=== PATIENT | female | born 1980 | race Caucasian/White ===

== ENCOUNTER → 2017-04-14 12:01 | Outpatient (CLI) | payer MEDICAID, SELFPAY ==
--- NOTE | 2017-04-14 12:05 | RAD_ITS ---
STUDY: X-RAY - LEFT FOOT CLINICAL: Female, 37 years old. Fifth metatarsal pain for 6 days. TECHNIQUE: 3 view(s) of the foot. COMPARISON: None. FINDINGS: Normal talus, calcaneus, and tarsal bones. Normal visualized subtalar, talonavicular, calcaneocuboid, tarsal and tarsometatarsal articulations. There is an os trigonum, a normal variant. Normal metatarsi. There is no abnormality of the metatarsophalangeal or interphalangeal joints. There is ossification of the distal Achilles tendon. RAD/Foot min 3 Views IMPRESSION: No significant abnormality identified. Electronically Signed: Fili Galarza MD at 17:31 EST , Service support ,
== END ==
PROVIDERS: Family Provider Family Medicine; PCP Family Medicine; Visit Provider Family Medicine
DX: M79.672 Pain in left foot (principal)
CPT/HCPCS: 73630

== ENCOUNTER → 2017-05-08 10:56 | Outpatient (CLI) | payer MEDICAID, SELFPAY ==
--- NOTE | 2017-05-08 10:58 | VDLE_ITS ---
Reason For Study: LEG SWELLING RIGHT LEFT GSV is normal. CFV is compressible, spontaneous, phasic, CFV is compressible, spontaneous, phasic, competent, and demonstrates normal competent and demonstrates normal augmentation. augmentation. FV is compressible, spontaneous, phasic, competent and demonstrates normal augmentation. POP V is compressible, spontaneous, phasic, competent and demonstrates normal augmentation. T/P Trunk is compressible. PTV is compressible. RT PerV is compressible. Procedure Exam performed in department. A preliminary report was called and/or faxed to Dr. Myrna Gibson. Interpretation Summary Deep veins of the right lower extremity are patent and compressible segmentally. There is no evidence of right lower extremity deep vein thrombosis. Valvular competence appears intact within the proximal deep venous system on the right . The right greater saphenous vein appears patent and compressible segmentally. Ordering Physician: Albert Gibson Referring Physician: Albert Gibson Performed By: Tiffany Haywood RVT
== END ==
PROVIDERS: Family Provider Family Medicine; PCP Family Medicine; Visit Provider Family Medicine
DX: M25.473 Effusion, unspecified ankle (principal)
CPT/HCPCS: 93971

== ENCOUNTER → 2017-06-11 14:34 | Outpatient (CLI) | payer MEDICAID, SELFPAY ==
[2017-06-11 16:10] LABS: Microalbumin,Random Urine 6.5 mg/L (NO RANGE EST.); Microalbumin:Creatinine Ratio 6.1 mg/g CRE (<30 mg/g CRE)
[2017-06-11 16:15] LABS: Anion Gap 8 (5-15); BUN 11 mg/dL (7-18); BUN/Creat Ratio 13.7 RATIO (10-20); Calcium,Total 8.3 mg/dL (8.5-10.1); Chloride 109 mmol/L (98-107); EST Glomerular Filtration Rate 85 mL/min (>60); Est Glom Filt Rate - Afr Amer 102 mL/min (>60); Glucose 115 mg/dL (74-106); Potassium 3.7 mmol/L (3.5-5.1); Sodium Level 142 mmol/L (136-145)
[2017-06-12 11:16] LABS: Vitamin D,25 Hydroxy 11.3 ng/mL (29.95-100.01)
== END ==
PROVIDERS: Family Provider Family Medicine; PCP Family Medicine; Visit Provider Family Medicine
DX: I10 Essential (primary) hypertension (principal); S76.019D Strain of muscle, fascia and tendon of unspecified hip, subsequent encounter; M72.2 Plantar fascial fibromatosis
CPT/HCPCS: 36415; 80048; 82043; 82306; 82570; 97110

== ENCOUNTER 2017-06-11 16:00 | Outpatient (RCR) | payer MEDICAID, SELFPAY ==
--- NOTE | 2017-05-20 14:02 | HP.PTEVAL_ITS ---
Patient's Visit Information CARLOS STRANGE is a 37 year old F referred to Physical Therapy by Albert Gibson with a diagnosis of Hip/plantar fascitits. Date of Evaluation: 05/20/17 Physical Therapist: Nita Sellers - Visit Plan Frequency: 2x /Week Duration: 4 Weeks Plan: Focus on core s/s and stretching for Plantar fascitis- modalities as needed - Subjective Subjective: Patient reports plantar fascitis- years- was having tenderness on the bottom of the foot- had new shoes and then switched back- first step in the AM is the worse. Saw Dr. Gibson put her in the boot and its been a month. The pain is less but its tender. Wears the boot all day but does not wear it at night. No pain with the boot- wants her in the boot another month. Wears a shoe under the boot. works at [employer] and stands all day. worst: 4/10 Agg: standing on it all day. Eases: boot, arch supportive shoe, rolling on a can Best: 0/10. No Orthotics- tries shoes and is good with them- Nike running shoes and Pumpa sneakers. Has been wearing a clog on the right to help even her out. Describes pain as sharp/shooting- feels like she is stepping on glass. No radiating pain. No N/T. Right hip pain- been bothering her for 2 weeks. Leg swelling- thinks she pulled a muscle and the swelling was from that. agg: driving, sitting down Worst: 7/10 Best: 0/10 Eases: getting off of it. Pain is located in the buttocks and radiates to the knee and ankle- tingling needles in the buttocks and aches all the way. The top of the foot is numb/tingling mostly at night. Sleep: disturbed- Side sleeper and sometimes on her back. PMHx: migraines, HTN, carpal tunnel bilateral surgeries, lateral release elbow. Meds: hydrolozine, phemododine, perodoxine, biciporolol. quinopro, topomax at night - Objective Posture: FH, RS- pt is overweight. Gait: CAM walker- antalgic- poor heel/toe pattern. observation: mild pes planus with SLS. HR/TR: WNL. Balance: 5 sec then increased pain. ROM: WFL in all planes. Strength: Ankle: 5/5, Knee: 5/5, hip: 4/5 throughout bilateral Core: fair minus. Flex: hS: moderate, Gastroc: severe - Goals Goal 1:: Patient will be I with HEP and progression Goal Time Frame: 4-6 Weeks Goal 2:: Patient will ambualte >300 feet with a normalized gait pattern and good shoes Goal Time Frame: 4-6 Weeks Goal 3:: Patient will demo 5/5 strength in LE to ease ADl's. Goal Time Frame: 4-6 Weeks Goal 4:: Patient will report 0/10 pain with ADL's. Goal Time Frame: 4-6 Weeks - Rehabilitation Potential Physical Therapy Diagnosis: Patient presents with hypomobility- she has decreased flex, strength and muscular endurance leading to abnormal gait and increased pain Rehabilitation Potential: Fair - Anticipated Interventions Patient/Client Instruction: Educate patient on: Benefits of Fitness Program For the Purpose of:: To improve performance and independence with ADL's Therapeutic Exercise to Include: Strength training, Endurance training, Balance training, Agility training, Body mechanics, Postural training, Flexibilty training, Gait and locomotor training, Passive ROM, Active ROM, Dynamic Lumbar Stabilization, Scapular Strength/Stabilization For the Purpose of:: To improve muscle performance and motor function Manual Therapy Techniques to Include: Mobilization, Passive ROM, Functional dry needling, Soft tissue mobilization For the Purpose of:: To increase ROM, To improve nutrient delivery to tissue TENS: Yes Cryotherapy (ice pack, ice massage): Yes Thermo therapy (hot pack): Yes Ultrasound (thermal/non thermal): Yes For the Purpose of:: To decrease pain Thank you for the opportunity to evaluate your patient. For Medicare and Medicare HMO plans, please review the plan of care and approve it. It will need to be FAXED BACK to us at [phone] for Medicare purposes. Please let me know if there are questions or concerns regarding this plan of care. Physician Signature: Date:
--- NOTE | 2017-07-29 08:46 | HP.PT.NRP ---
HP - Discharge Summary (1) - Patient Information CARLOS STRANGE was seen in my office for initial evaluation on 05/20/17. The following Plan of Care was established for this patient: Initial Frequency: 2x /Week Initial Duration: 4 Weeks - Anticipated Interventions Patient/Client Instruction: Educate patient on: Benefits of Fitness Program For the Purpose of:: To improve performance and independence with ADL's Therapeutic Exercise to Include: Strength training, Endurance training, Balance training, Agility training, Body mechanics, Postural training, Flexibilty training, Gait and locomotor training, Passive ROM, Active ROM, Dynamic Lumbar Stabilization, Scapular Strength/Stabilization For the Purpose of:: To improve muscle performance and motor function Manual Therapy Techniques to Include: Mobilization, Passive ROM, Functional dry needling, Soft tissue mobilization For the Purpose of:: To increase ROM, To improve nutrient delivery to tissue TENS: Yes Cryotherapy (ice pack, ice massage): Yes Thermo therapy (hot pack): Yes Ultrasound (thermal/non thermal): Yes For the Purpose of:: To decrease pain This patient was last seen in our office . Pertinent comments regarding their Physical therapy will appear below: Patient has not attended physical therapy in over 30 days and is appropriate for d/c- return to MD as needed. At this point I will be discontinuing this patient from physical therapy. I would be happy to see this patient again in the future if found appropriate by the physician. Thank you! Nita Sellers
== END 2017-06-11 19:00 | disposition home or self-care (01) ==
LOC: PT 16:00
PROVIDERS: Family Provider Family Medicine; PCP Family Medicine; Visit Provider Family Medicine
DX: S76.019D Strain of muscle, fascia and tendon of unspecified hip, subsequent encounter (principal); M72.2 Plantar fascial fibromatosis
CPT/HCPCS: 97110; 97162

== ENCOUNTER → 2017-09-03 13:56 | Outpatient (CLI) | payer MEDICAID, SELFPAY ==
--- NOTE | 2017-09-03 13:58 | RAD_ITS ---
STUDY: X-RAY - RIGHT HAND, ATTENTION THUMB REASON FOR EXAM: Thumb pain. TECHNIQUE: 3 view(s) of the finger were obtained. COMPARISON: None. FINDINGS: Normal first carpometacarpal joint. Normal metacarpal. Normal metacarpophalangeal joint. Normal proximal phalanx. Normal distal phalanx. Normal interphalangeal joint. RAD/Finger(s) Min 2 Views IMPRESSION: Normal x-ray examination of the right thumb. Electronically Signed: Ty Muro MD at 14:18 EDT Tel , Service support ,
== END ==
PROVIDERS: Family Provider Family Medicine; PCP Family Medicine; Visit Provider Orthopaedic Surgery
DX: M79.644 Pain in right finger(s) (principal)
CPT/HCPCS: 73140

== ENCOUNTER → 2017-12-16 14:31 | Outpatient (CLI) | payer MEDICAID, SELFPAY ==
[2017-12-16 16:46] LABS: Anion Gap 8 (5-15); BUN 9 mg/dL (7-18); BUN/Creat Ratio 11.7 RATIO (10-20); Calcium,Total 8.3 mg/dL (8.5-10.1); Chloride 106 mmol/L (98-107); Creatinine, Serum 0.77 mg/dL (0.55-1.02); EST Glomerular Filtration Rate 88 mL/min (>60); Est Glom Filt Rate - Afr Amer 107 mL/min (>60); Glucose 103 mg/dL (74-106); Sodium Level 142 mmol/L (136-145); Thyroid Stim Hormone (TSH) 1.73 uIU/mL (0.358-3.74)
== END ==
PROVIDERS: Family Provider Family Medicine; PCP Family Medicine; Visit Provider Internal Medicine Cardiovascular Disease
DX: I10 Essential (primary) hypertension (principal); R00.2 Palpitations
CPT/HCPCS: 36415; 80048; 84443

== ENCOUNTER → 2017-12-18 10:51 | Outpatient (REF) | payer SELFPAY | LOC: CVS 10:51 | PROVIDERS: Family Provider Family Medicine; PCP Family Medicine; Referring Provider Internal Medicine Cardiovascular Disease; Visit Provider Internal Medicine Cardiovascular Disease | DX: R00.2 Palpitations (principal); I49.3 Ventricular premature depolarization; R94.39 Abnormal result of other cardiovascular function study; I10 Essential (primary) hypertension ==

== ENCOUNTER → 2017-12-24 12:48 | Outpatient (CLI) | payer MEDICAID, SELFPAY ==
--- NOTE | 2017-12-24 12:49 | CT_ITS ---
STUDY: CTA OF THE ABDOMINAL AORTA REASON FOR EXAM: Female, 37 years old. Heart palpitations. Possible coarctation of the aorta. RADIATION DOSAGE (If Supplied By Facility): CTDIvol = ( 16.06 ) mGy, DLP = ( 1155.30 ) mGycm TECHNIQUE: Axial CT angiography multi-detector data acquisition was obtained from the the liver to the symphysis pubis following intravenous administration of 100 ml of Isovue 300 contrast. Axial images and MIP images were reconstructed from the axial data set. Post-processing of the angiographic images was performed, with multiplanar reformation and 3D reconstruction. Individualized dose optimization techniques were used for this CT. TECHNICAL QUALITY: Good COMPARISON: None. Descriptors of Narrowing: None (0%) Mild (< 50%) Moderate (50-70%) Severe (70-90%) Subtotal/Total Occlusion (90-100%) Non-Evaluable (technically non-diagnostic FINDINGS: Small hiatal hernia. Fatty infiltration of the liver. Abdominal aorta: No demonstrated narrowing. Celiac and superior mesenteric arteries: No demonstrated narrowing. Inferior mesenteric artery: No demonstrated narrowing. Right renal artery(arteries): No demonstrated narrowing. Left renal artery(arteries): No demonstrated narrowing. Right common iliac artery: No demonstrated narrowing. Right external iliac artery: No demonstrated narrowing. Right internal iliac artery: No demonstrated narrowing. Left common iliac artery: No demonstrated narrowing. Left external iliac artery: No demonstrated narrowing. Left internal iliac artery: No demonstrated narrowing. IMPRESSION: Normal abdominal aorta . Electronically Signed: Lion Perdomo MD at 15:45 EST Tel [phone], Service support , STUDY: CTA CHEST REASON FOR EXAM: Female, 37 years old. Palpitations. Possible coarctation of the thoracic aorta. RADIATION DOSAGE (If Supplied By Facility): CTDIvol = ( 16.06 ) mGy, DLP = ( 1155.30 ) mGycm TECHNIQUE: The examination was performed with the intravenous administration of 100 ml of Isovue 300 contrast material. Post-processing of the angiographic images was performed, with multiplanar reformation and 3D reconstruction. Individualized dose optimization techniques were used for this CT. COMPARISON: None. FINDINGS: Homogeneous enlargement of the thyroid gland without hypodense nodules suggestive of goitrous enlargement. Small bilateral axillary lymph nodes. Normal enhancement of the main pulmonary artery and right and left pulmonary arteries. Normal enhancement of the bilateral peripheral pulmonary arteries. There is no demonstrated pulmonary embolism. Normal thoracic aorta and visualized great vessels. There is no evidence of coarctation. There is no demonstrated aortic dissection. Normal heart and pericardium. Normal mediastinum. Normal hilar regions. Normal visualized trachea and bronchi. The lungs are well expanded. Normal pulmonary parenchyma. Normal pleura. Normal chest wall structures. Normal osseous structures. Small hiatal hernia. CT/CTA Chest W/WO Contrast IMPRESSION: Normal CTA chest examination, without a demonstrated pulmonary embolism or arterial dissection. Electronically Signed: Lion Perdomo MD at 15:46 EST Tel [phone], Service support ,
--- NOTE | 2017-12-24 12:49 | CT_ITS ---
STUDY: CTA OF THE ABDOMINAL AORTA REASON FOR EXAM: Female, 37 years old. Heart palpitations. Possible coarctation of the aorta. RADIATION DOSAGE (If Supplied By Facility): CTDIvol = ( 16.06 ) mGy, DLP = ( 1155.30 ) mGycm TECHNIQUE: Axial CT angiography multi-detector data acquisition was obtained from the the liver to the symphysis pubis following intravenous administration of 100 ml of Isovue 300 contrast. Axial images and MIP images were reconstructed from the axial data set. Post-processing of the angiographic images was performed, with multiplanar reformation and 3D reconstruction. Individualized dose optimization techniques were used for this CT. TECHNICAL QUALITY: Good COMPARISON: None. Descriptors of Narrowing: None (0%) Mild (< 50%) Moderate (50-70%) Severe (70-90%) Subtotal/Total Occlusion (90-100%) Non-Evaluable (technically non-diagnostic FINDINGS: Small hiatal hernia. Fatty infiltration of the liver. Abdominal aorta: No demonstrated narrowing. Celiac and superior mesenteric arteries: No demonstrated narrowing. Inferior mesenteric artery: No demonstrated narrowing. Right renal artery(arteries): No demonstrated narrowing. Left renal artery(arteries): No demonstrated narrowing. Right common iliac artery: No demonstrated narrowing. Right external iliac artery: No demonstrated narrowing. Right internal iliac artery: No demonstrated narrowing. Left common iliac artery: No demonstrated narrowing. Left external iliac artery: No demonstrated narrowing. Left internal iliac artery: No demonstrated narrowing. IMPRESSION: Normal abdominal aorta . Electronically Signed: Lion Perdomo MD at 15:45 EST Tel [phone], Service support , STUDY: CTA CHEST REASON FOR EXAM: Female, 37 years old. Palpitations. Possible coarctation of the thoracic aorta. RADIATION DOSAGE (If Supplied By Facility): CTDIvol = ( 16.06 ) mGy, DLP = ( 1155.30 ) mGycm TECHNIQUE: The examination was performed with the intravenous administration of 100 ml of Isovue 300 contrast material. Post-processing of the angiographic images was performed, with multiplanar reformation and 3D reconstruction. Individualized dose optimization techniques were used for this CT. COMPARISON: None. FINDINGS: Homogeneous enlargement of the thyroid gland without hypodense nodules suggestive of goitrous enlargement. Small bilateral axillary lymph nodes. Normal enhancement of the main pulmonary artery and right and left pulmonary arteries. Normal enhancement of the bilateral peripheral pulmonary arteries. There is no demonstrated pulmonary embolism. Normal thoracic aorta and visualized great vessels. There is no evidence of coarctation. There is no demonstrated aortic dissection. Normal heart and pericardium. Normal mediastinum. Normal hilar regions. Normal visualized trachea and bronchi. The lungs are well expanded. Normal pulmonary parenchyma. Normal pleura. Normal chest wall structures. Normal osseous structures. Small hiatal hernia. CT/CTA Abdomen W/WO Contrast IMPRESSION: Normal CTA chest examination, without a demonstrated pulmonary embolism or arterial dissection. Electronically Signed: Lion Perdomo MD at 15:46 EST Tel [phone], Service support ,
--- NOTE | 2017-12-24 13:29 | ECHOCS_ITS ---
Reason For Study: Arrhythmia Procedure This was a 2D Doppler, Color Flow transthoracic echocardiogram. Contrast injection was performed. Exam performed in department. Left Ventricle Normal LV size. Moderate concentric left ventricular hypertrophy. Left ventricular systolic function is normal. The estimated ejection fraction is 65 %. No evidence for diastolic dysfunction. No regional wall motion abnormalities noted. Right Ventricle Normal RV size. Normal systolic function. Atria Normal left atrium. Normal right atrium. Mitral Valve Normal mitral valve. Tricuspid Valve Normal tricuspid valve. Unable to estimate RV systolic pressure due to inadequate jet, pulmonary artery pressure probably normal. Aortic Valve The aortic valve is not well visualized. Pulmonic Valve Normal pulmonic valve. Great Vessels Normal aortic root. The pulmonary artery is normal size. Normal inferior vena cava. Pericardium/Pleural No pericardial effusion. Medication Diluted definity 2ml given slow IV push to enhance endocardial definition. MMode/2D Measurements & Calculations LVIDd: 4.9 cm IVSd: 1.7 cm Ao root diam: 3.2 cm LVIDs: 3.1 cm LVPWd: 1.2 cm LA dimension: 4.3 cm RVDd: 3.8 cm FS: 37.1 % LAV(MOD-bp): 56.2 ml LA A4 area: 19.7 cm2 RA A4 area: 14.2 cm2 LAV(MOD-bp) Indexed: 23.4 ml/m2 LAV(MOD-sp2): 50.4 ml LAV(MOD-sp4): 60.7 ml Time Measurements MV dec time: 0.22 sec Doppler Measurements & Calculations MV E max alexandro: 113.3 cm/sec Lat Peak E' Alexandro: 10.9 cm/sec Med Peak E' Alexandro: 9.3 cm/sec MV A max alexandro: 71.6 cm/sec E/E' lat: 10.4 E/E' med: 12.2 MV E/A: 1.6 MV V2 max: 118.5 cm/sec MV P1/2t max alexandro: 118.5 cm/sec Ao V2 max: 183.9 cm/sec MV max P.6 mmHg MV P1/2t: 70.2 msec Ao max P.5 mmHg MV V2 mean: 62.3 cm/sec MV dec slope: 494.4 cm/sec2 Ao V2 mean: 109.2 cm/sec MV mean P.8 mmHg Ao mean P.7 mmHg MV V2 VTI: 30.3 cm MVA(P1/2t): 3.1 cm2 Ao V2 VTI: 33.4 cm LV V1 max: 108.6 cm/sec PA V2 max: 149.3 cm/sec LV V1 max P.7 mmHg LV V1 mean P.1 mmHg LV V1 mean: 66.0 cm/sec LV V1 VTI: 24.8 cm Interpretation Summary Normal LV size. Moderate concentric left ventricular hypertrophy. Left ventricular systolic function is normal. The estimated ejection fraction is 65 %. No evidence for diastolic dysfunction. Contrast injection was performed. Ordering Physician: Anival Jacobson Referring Physician: Anival Jacobson Performed By: Jj Turner RCS
== END ==
PROVIDERS: Family Provider Family Medicine; PCP Family Medicine; Referring Provider Internal Medicine Cardiovascular Disease; Visit Provider Internal Medicine Cardiovascular Disease
DX: I10 Essential (primary) hypertension (principal); R01.1 Cardiac murmur, unspecified; R00.2 Palpitations
CPT/HCPCS: 71275; 74175; 93306; Q9957; Q9967; A4216; C8929

== ENCOUNTER → 2018-03-22 11:24 | Outpatient (CLI) | payer MEDICAID, SELFPAY ==
[2018-02-25 14:29] VITALS: BMI 47.7
[2018-03-22 16:04] LABS: Absolute Lymphocyte Count 1.52 X10^3/ul (0.83-4.51); Absolute Neutrophil Count 6.4 X10^3/uL (2.0-7.7); Basophil# 0.01 X10^3/uL; Basophil% 0.1 % (0-1); Eosinophil# 0.17 X10^3/uL; Eosinophils% 1.9 % (0-5); Hemoglobin 13.1 g/dl (12.0-15.0); Lymphocyte # 1.52 X10^3/ul (4.0); Lymphocyte % 17.3 % (19-41); Mean Corp Hgb Conc 32.8 g/gl (32-36); Mean Corpuscular Hgb 30.3 pg (27.0-32.0); Mean Corpuscular Volume 92.4 fL (81-99); Mean Platelet Vol. 9.9 fl (6.2-12.0); Monocyte# 0.63 X10^3/uL; Monocyte% 7.2 % (0-10); Neutrophil # 6.44 X10^3/uL (2.7-7.7); Neutrophil % 73.2 % (47-70); Platelet Count 408 K/mm3 (150-450); RBC Distribution Width CV 12.8 % (11.6-14.6); RBC Distribution Width SD 41.9 fl (35.1-43.9); Red Blood Count 4.33 M/mm3 (4.2-5.4); White Blood Count 8.8 K/mm3 (4.4-11.0)
[2018-03-22 16:05] LABS: POSITIVE COUNT NO; POSITIVE DIFFERENTIAL NO; POSITIVE MORPHOLOGY NO
[2018-03-22 16:14] LABS: ALB/GLOB Ratio 0.7 RATIO (0.9-2.4); AST(SGOT) 17 U/L (15-37); Alanine Aminotransfer ALT/SGPT 28 U/L (13-56); Albumin, Serum 3.3 g/dL (3.2-5.0); Alkaline Phosphatase 77 U/L (45-117); Anion Gap 11 (5-15); BUN 11 mg/dL (7-18); BUN/Creat Ratio 14.5 RATIO (10-20); Calcium,Total 8.8 mg/dL (8.5-10.1); Chloride 105 mmol/L (98-107); Creatinine, Serum 0.76 mg/dL (0.55-1.02); EST Glomerular Filtration Rate 90 mL/min (>60); Est Glom Filt Rate - Afr Amer 108 mL/min (>60); Globulin 4.6 g/dL (2.2-4.2); Glucose 143 mg/dL (74-106); Lipase 191 U/L (73-393); Potassium 3.7 mmol/L (3.5-5.1); Protein, Total 7.9 g/dL (6.4-8.2); Sodium Level 139 mmol/L (136-145)
[2018-03-24 11:47] LABS: Hep C Antibodies <0.1 s/co ratio (0.0-0.9)
== END ==
PROVIDERS: Family Provider Family Medicine; PCP Family Medicine; Visit Provider Family Medicine
DX: R11.0 Nausea (principal)
CPT/HCPCS: 36415; 80053; 83690; 85025; 86140; 86803

== ENCOUNTER → 2018-03-29 12:06 | Outpatient (CLI) | payer MEDICAID, SELFPAY ==
[2018-02-25 14:29] VITALS: BMI 47.7
--- NOTE | 2018-03-29 12:09 | NM_ITS ---
CLINICAL: 38-year-old female with reported history of chronic nausea. RADIONUCLIDE HEPATOBILIARY SCINTIGRAPHY COMPARISON: None available FINDINGS: Following the intravenous administration of 5.2 mCi of 99m Tc Mebrofenin, hepatobiliary images reveal: 1. Relatively prompt and homogeneous radiopharmaceutical concentration is noted by a normal sized liver. No parenchymal defects are identified. 2. Gallbladder activity is identified at 10 minutes post radiopharmaceutical administration. 3. Small intestinal tract is observed at 30 minutes following tracer injection. 4. Washout of the radiopharmaceutical by the hepatic parenchyma appears qualitatively normal. Cholecystokinin (0.02 ug/kg) was administered intravenously over a 30-minute period. The post CCK gallbladder ejection fraction calculated at 21 minutes following Cholecystokinin administration was noted to be 37.0 % (normal greater than 35%). During 30 minutes of post CCK imaging, there is no scintigraphic evidence of reflux of the radiotracer into the common hepatic duct or refilling of the gallbladder. NM/Hepatobilliary Img w/Pharm Int IMPRESSION: 1. NORMAL 99m Tc Mebrofenin hepatobiliary imaging examination with Cholecystokinin. A. A gallbladder ejection fraction calculated to be greater than 35% following the administration of Cholecystokinin makes the probability of functional hepatobiliary disease (gallbladder and/or sphincter of Oddi dyskinesia) and/or organic hepatobiliary disease (chronic acalculous cholecystitis and/or cystic duct syndrome) to be low. (Eliana Corrigan et al, Journal of Nuclear Medicine 32:1695, 1990). Electronically Signed: Herminio Jimenez DO at 23:11 EST Tel , Service support ,
== END ==
PROVIDERS: Family Provider Family Medicine; PCP Family Medicine; Referring Provider Family Medicine; Visit Provider Family Medicine
DX: R11.0 Nausea (principal)
CPT/HCPCS: 78227; A9537

== ENCOUNTER → 2018-04-26 12:11 | Outpatient (CLI) | payer MEDICAID, SELFPAY ==
[2018-02-25 14:29] VITALS: BMI 47.7
[2018-04-26 14:04] LABS: Erythrocyte Sedimentation Rate 17 mm/hr (0-20)
[2018-04-26 14:07] LABS: Absolute Lymphocyte Count 1.47 X10^3/ul (0.83-4.51); Absolute Neutrophil Count 6.4 X10^3/uL (2.0-7.7); Basophil# 0.02 X10^3/uL; Basophil% 0.2 % (0-1); Eosinophil# 0.12 X10^3/uL; Eosinophils% 1.4 % (0-5); Hematocrit 43.6 % (37-47); Hemoglobin 14.1 g/dl (12.0-15.0); Lymphocyte # 1.47 X10^3/ul (4.0); Lymphocyte % 17.2 % (19-41); Mean Corp Hgb Conc 32.3 g/gl (32-36); Mean Corpuscular Hgb 29.9 pg (27.0-32.0); Mean Corpuscular Volume 92.4 fL (81-99); Mean Platelet Vol. 9.9 fl (6.2-12.0); Monocyte# 0.57 X10^3/uL; Monocyte% 6.7 % (0-10); Neutrophil # 6.36 X10^3/uL (2.7-7.7); Neutrophil % 74.3 % (47-70); POSITIVE COUNT NO; POSITIVE DIFFERENTIAL NO; POSITIVE MORPHOLOGY NO; Platelet Count 362 K/mm3 (150-450); RBC Distribution Width CV 13.3 % (11.6-14.6); Red Blood Count 4.72 M/mm3 (4.2-5.4); White Blood Count 8.6 K/mm3 (4.4-11.0)
[2018-04-26 14:19] LABS: ALB/GLOB Ratio 0.8 RATIO (0.9-2.4); AST(SGOT) 19 U/L (15-37); Alanine Aminotransfer ALT/SGPT 30 U/L (13-56); Albumin, Serum 3.6 g/dL (3.2-5.0); Alkaline Phosphatase 67 U/L (45-117); Anion Gap 7 (5-15); BUN 10 mg/dL (7-18); BUN/Creat Ratio 12.8 RATIO (10-20); Calcium,Total 8.3 mg/dL (8.5-10.1); Chloride 104 mmol/L (98-107); Creatinine, Serum 0.78 mg/dL (0.55-1.02); EST Glomerular Filtration Rate 87 mL/min (>60); Est Glom Filt Rate - Afr Amer 105 mL/min (>60); Globulin 4.5 g/dL (2.2-4.2); Glucose 105 mg/dL (74-106); Microalbumin,Random Urine 24.9 mg/L (NO RANGE EST.); Microalbumin:Creatinine Ratio 13.9 mg/g CRE (<30 mg/g CRE); Potassium 3.8 mmol/L (3.5-5.1); Protein, Total 8.1 g/dL (6.4-8.2); Sodium Level 138 mmol/L (136-145); Thyroid Stim Hormone (TSH) 1.88 uIU/mL (0.358-3.74)
== END ==
PROVIDERS: Family Provider Family Medicine; PCP Family Medicine; Visit Provider Family Medicine
DX: I10 Essential (primary) hypertension (principal); R11.0 Nausea
CPT/HCPCS: 36415; 80053; 82043; 82570; 84443; 85025; 85652; 86140

== ENCOUNTER → 2018-05-07 14:51 | Outpatient (CLI) | payer MEDICAID, SELFPAY ==
[2018-02-25 14:29] VITALS: BMI 47.7
--- NOTE | 2018-05-07 14:53 | CT_ITS ---
STUDY: CT ABDOMEN WITH CONTRAST REASON FOR EXAM: Female, 38 years old. Constant nausea, no pain. RADIATION DOSAGE (If Supplied By Facility): CTDIvol = ( 16.9 ) mGy, DLP = ( 822 ) mGycm TECHNIQUE: Transaxial images were obtained post I.V. administration of 100 ml of Isovue 300 contrast, and with oral contrast. Sagittal and coronal images were reconstructed. Individualized dose optimization techniques were used for this CT. COMPARISON: CTA chest 12/24/2017, x-ray abdomen 10/27/2015 FINDINGS: Body wall soft tissues: No acute process. Osseous structures: No acute process. Lung bases: Clear. Cardiac base: Normal. Distal esophagus: Normal. Hepatobiliary: Hepatomegaly, craniocaudal right liver 23 cm, hepatic steatosis. Normal gallbladder and biliary tree. Pancreas: Normal. Spleen: Normal. Adrenal glands: Normal. Urinary tract: Normal kidneys, collecting systems, proximal ureters. Retroperitoneum: No mass or lymphadenopathy. Excellent stomach: Normal. Small bowel and mesentery: Normal. Large bowel: Evaluated portions exhibit no acute process. Free fluid or free air: None. CT/Abdomen WITH IV Contrast IMPRESSION: Hepatic steatosis with hepatomegaly. Normal features of the gallbladder and biliary tree. No acute intra-abdominal process is evident. Electronically Signed: Herminio Tran MD at 15:31 EDT Tel , Service support ,
== END ==
PROVIDERS: Family Provider Family Medicine; PCP Family Medicine; Referring Provider Family Medicine; Visit Provider Family Medicine
DX: R10.13 Epigastric pain (principal)
CPT/HCPCS: 74160; Q9967

== ENCOUNTER → 2018-08-09 | Outpatient (CLI) | payer MEDICAID, SELFPAY ==
[2018-07-27 09:06] VITALS: BMI 47.7
--- NOTE | 2018-08-09 15:08 | BI_ITS ---
MAMMOGRAPHY - BILATERAL SCREENING REASON FOR EXAM: Female, 38 years old. Routine annual screening examination. PERTINENT HISTORY: Non-contributory. TECHNIQUE: Digital bilateral breast ermelinda (3D mammographic acquisition) in the CC and MLO projections. 2-D mediolateral oblique (MLO) and craniocaudad (CC) views of both breasts were obtained. CAD: Full Field Digital Mammography with Computer Added Detection was performed. COMPARISON: None. Baseline examination. FINDINGS: Breast Composition: There are scattered areas of fibroglandular density. There are no dominant masses or suspicious calcifications. No other significant abnormalities are identified. BI/SCREEN MAMM (CAD) W/ERMELINDA BILAT IMPRESSION: Negative screening mammogram. Yearly followup mammogram recommended. (A) ASSESSMENT CATEGORY: BIRADS Category 1: Negative. A letter regarding these results will be sent to the patient by the facility within 30 days. Approximately 10% of breast cancers are not detected by mammography. A normal mammogram should not delay biopsy of a clinically suspicious abnormality. [id number] Electronically Signed: Lion Perdomo, at 8:20 EDT , Service support ,
== END | disposition home or self-care (01) ==
LOC: OPBI 15:05
PROVIDERS: Family Provider Family Medicine; PCP Family Medicine; Referring Provider Family Medicine; Visit Provider Family Medicine
DX: Z12.31 Encounter for screening mammogram for malignant neoplasm of breast (principal)
CPT/HCPCS: 77063; 77067

== ENCOUNTER → 2018-09-29 | Outpatient (CLI) | payer MEDICAID, SELFPAY ==
[2018-07-27 09:06] VITALS: BMI 47.7
[2018-09-07 13:48] VITALS: BMI 47.7
--- NOTE | 2018-09-29 11:46 | NEURO ---
NCS and/or EMG Patient Report Ordering Doctor: Darya Cordon DATE OF SERVICE: 09/29/18 This is a right upper extremity nerve conduction study performed on this 38-year-old female with a history of tingling and pain in her right hand affecting digits 3 through 5 for 1 year. She is also had carpal tunnel syndrome repair 15 years ago. There is no history of neck pain. The patient deferred EMG testing. Right upper extremity sensory and motor nerve conduction studies performed demonstrating prolongation of the median motor and sensory as well as ulnar motor and sensory response. The median conduction velocities slowed, the ulnar conduction velocity is preserved. There is decreased amplitude across the elbow of the ulnar motor response. The radial sensory response is normal. 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 Dictated, not proofread
== END | disposition home or self-care (01) ==
LOC: PSN 06:56
PROVIDERS: Family Provider Family Medicine; PCP Family Medicine; Referring Provider Orthopaedic Surgery; Visit Provider Orthopaedic Surgery
DX: G56.21 Lesion of ulnar nerve, right upper limb (principal)
CPT/HCPCS: 95909

== ENCOUNTER → 2018-10-21 | Outpatient (CLI) | payer MEDICAID, SELFPAY ==
[2018-10-05 14:03] VITALS: BMI 47.7
[2018-10-21 18:09] LABS: ALB/GLOB Ratio 0.8 RATIO (0.9-2.4); AST(SGOT) 16 U/L (15-37); Alanine Aminotransfer ALT/SGPT 31 U/L (13-56); Albumin, Serum 3.5 g/dL (3.2-5.0); Alkaline Phosphatase 112 U/L (45-117); Anion Gap 8 (5-15); BUN 9 mg/dL (7-18); Calcium,Total 8.7 mg/dL (8.5-10.1); Chloride 106 mmol/L (98-107); Creatinine, Serum 0.82 mg/dL (0.55-1.02); EST Glomerular Filtration Rate 82 mL/min (>60); Est Glom Filt Rate - Afr Amer 99 mL/min (>60); Globulin 4.3 g/dL (2.2-4.2); Glucose 180 mg/dL (74-106); Potassium 3.7 mmol/L (3.5-5.1); Protein, Total 7.8 g/dL (6.4-8.2); Sodium Level 140 mmol/L (136-145); Thyroid Stim Hormone (TSH) 1.75 uIU/mL (0.358-3.74)
[2018-10-21 19:00] LABS: Hemoglobin A1c 5.7 % (4.2-6.3)
== END | disposition home or self-care (01) ==
LOC: MFPLAB 15:08
PROVIDERS: Family Provider Family Medicine; PCP Family Medicine; Referring Provider Family Medicine; Visit Provider Family Medicine
DX: R35.1 Nocturia (principal); I10 Essential (primary) hypertension
CPT/HCPCS: 36415; 80053; 83036; 84443

== ENCOUNTER → 2019-01-19 15:06 | Outpatient (CLI) | payer MEDICAID, SELFPAY ==
[2018-11-18 13:34] VITALS: BMI 47.7
[2019-01-19 18:13] LABS: ALB/GLOB Ratio 0.9 RATIO (0.9-2.4); AST(SGOT) 19 U/L (15-37); Alanine Aminotransfer ALT/SGPT 30 U/L (13-56); Albumin, Serum 3.8 g/dL (3.2-5.0); Alkaline Phosphatase 84 U/L (45-117); Anion Gap 7 (5-15); BUN 9 mg/dL (7-18); BUN/Creat Ratio 11.1 RATIO (10-20); Calcium,Total 8.8 mg/dL (8.5-10.1); Chloride 108 mmol/L (98-107); Creatinine, Serum 0.81 mg/dL (0.55-1.02); EST Glomerular Filtration Rate 83 mL/min (>60); Est Glom Filt Rate - Afr Amer 101 mL/min (>60); Globulin 4.1 g/dL (2.2-4.2); Glucose 121 mg/dL (74-106); Potassium 3.5 mmol/L (3.5-5.1); Protein, Total 7.9 g/dL (6.4-8.2); Sodium Level 140 mmol/L (136-145)
== END ==
PROVIDERS: Family Provider Family Medicine; PCP Family Medicine; Referring Provider Family Medicine; Visit Provider Family Medicine
DX: R73.9 Hyperglycemia, unspecified (principal)
CPT/HCPCS: 36415; 80053; 83036

== ENCOUNTER → 2019-03-01 09:19 | Outpatient (CLI) | payer MEDICAID, SELFPAY ==
[2018-11-18 13:34] VITALS: BMI 47.7
[2019-03-01 09:59] LABS: Basophil% 0.4 % (0-1); Eosinophils% 2.4 % (0-5); Erythrocyte Sedimentation Rate 33 mm/hr (0-20); Hematocrit 42.4 % (37-47); Lymphocyte % 18.3 % (19-41); Mean Corpuscular Hgb 29.2 pg (27.0-32.0); Mean Corpuscular Volume 88.5 fL (81-99); Mean Platelet Vol. 9.6 fl (6.2-12.0); Monocyte% 7.5 % (0-10); Platelet Count 313 K/mm3 (150-450); RBC Distribution Width CV 12.9 % (11.6-14.6); RBC Distribution Width SD 41.5 fl (35.1-43.9); Red Blood Count 4.79 M/mm3 (4.2-5.4)
[2019-03-01 10:00] LABS: Absolute Lymphocyte Count 1.65 X10^3/uL (0.83-4.51); Absolute Neutrophil Count 6.4 X10^3/uL (2.0-7.7); Basophil# 0.04 X10^3/uL; Eosinophil# 0.22 X10^3/uL; Lymphocyte # 1.65 X10^3/ul (4.0); Monocyte# 0.68 X10^3/uL; NRBC Flagged by Analyzer 0 % (0-5); Neutrophil # 6.41 X10^3/uL (2.7-7.7)
[2019-03-01 10:23] LABS: Osmolality, Serum 285 mOsm/KG (275-295)
[2019-03-01 10:33] LABS: ALB/GLOB Ratio 0.9 RATIO (0.9-2.4); AST(SGOT) 18 U/L (15-37); Alanine Aminotransfer ALT/SGPT 30 U/L (13-56); Albumin, Serum 3.5 g/dL (3.2-5.0); Alkaline Phosphatase 73 U/L (45-117); Anion Gap 5 (5-15); BUN 7 mg/dL (7-18); BUN/Creat Ratio 10.3 RATIO (10-20); Calcium,Total 8.4 mg/dL (8.5-10.1); Chloride 106 mmol/L (98-107); Creatinine, Serum 0.68 mg/dL (0.55-1.02); EST Glomerular Filtration Rate 102 mL/min (>60); Est Glom Filt Rate - Afr Amer 123 mL/min (>60); Glucose 123 mg/dL (74-106); Potassium 3.7 mmol/L (3.5-5.1); Protein, Total 7.5 g/dL (6.4-8.2); Sodium Level 137 mmol/L (136-145); Thyroid Stim Hormone (TSH) 2.18 uIU/mL (0.358-3.74)
--- NOTE | 2019-03-01 10:34 | CT_ITS ---
STUDY: CT BRAIN WITHOUT CONTRAST REASON FOR EXAM: Female, 39 years old. LEFT LEG WEAKNESS x 4 days RADIATION DOSAGE (If Supplied By Facility): CTDIvol = ( 60.81 ) mGy, DLP = ( 2179.77 ) mGycm TECHNIQUE: Transaxial CT imaging of the brain was performed without administration of intravenous contrast material. Individualized dose optimization techniques were used for this CT. COMPARISON: No relevant priors. FINDINGS: Normal soft tissue structures. Normal calvarium. Normal size ventricles and extra-axial spaces for the patient''s age. Normal white matter tracts of the cerebral hemispheres. Normal basal ganglia and thalami. Normal brainstem. Normal cerebellum. There is no intracranial hemorrhage. There are no findings of an acute ischemic infarction. Normal visualized paranasal sinuses. CT/Brain/Head without Contrast IMPRESSION: Normal unenhanced CT scan of the brain. Electronically Signed: Lion Perdomo, at 11:05 EST , Service support ,
[2019-03-02 20:07] LABS: PROEL- Albumin 3.5 g/dL (2.9-4.4); PROEL- Alpha-1 Globulin 0.2 g/dL (0.0-0.4); PROEL- Alpha-2 Globulin 0.8 g/dL (0.4-1.0); PROEL- Beta Globulin 1.1 g/dL (0.7-1.3); PROEL- Gamma Globulin 1.2 g/dL (0.4-1.8); PROEL- Globulin, Total 3.4 g/dL (2.2-3.9); PROEL- TOTAL PROTEIN 6.9 g/dL (6.0-8.5)
[2019-03-02 20:23] LABS: ANTINUCLEAR ANTIBODIES DIRECT Negative (Negative)
[2019-03-03 01:51] LABS: Rapid Plasmin Reagin (RPR) NONREACTIVE (NONREACTIVE)
== END ==
PROVIDERS: PCP Family Medicine; Visit Provider Family Medicine
DX: R29.898 Other symptoms and signs involving the musculoskeletal system (principal); M79.2 Neuralgia and neuritis, unspecified; R20.2 Paresthesia of skin
CPT/HCPCS: 36415; 70450; 80053; 83930; 84165; 84443; 85025; 85652; 86038; 86592

== ENCOUNTER → 2019-03-10 | Outpatient (CLI) | payer MEDICAID, SELFPAY ==
[2018-11-18 13:34] VITALS: BMI 47.7
--- NOTE | 2019-03-10 06:36 | MRI_ITS ---
STUDY: MRI THORACIC SPINE WITHOUT CONTRAST REASON FOR EXAM: Female, 39 years old. LLE weakness, sensory changes from mid thorax through left leg TECHNIQUE: Standardized fat and water weighted pulse sequences were obtained in the sagittal and axial planes. COMPARISON: None. FINDINGS: Normal kyphosis of the thoracic spine. There is no substantial scoliosis. T1-2, T2-3, T3-4, T4-5, T5-6, T6-7, T7-8, T8-9, T9-10, T10-11, T11-12: Focal hypertrophy and calcification of the ligamenta flava at the posterior midline aspect of T5-T6 results in compression on the thecal sac and mild mass effect on the cord without direct compression. Mild central canal stenosis is present at this level. Mild multilevel disc desiccation and disc space narrowing is present as well as some anterior endplate spurring. At the T10-T11 level a small right paracentral disc protrusion results in compression on the right anterior aspect of the cord and contributes to mild increased signal in the cord likely due to compressive myelomalacia. A small midline disc protrusion is present at T9-T10 level resulting in mild compression anterior aspect of the cord and mild central canal stenosis. A small right paracentral disc protrusion at the T6-T7 level also results in mild compression anterior aspect of the cord. Normal bilateral intervertebral neural foramina at the corresponding levels. Slight wedging of the T10-T12 vertebral bodies could be either physiologic or related and mild compression deformities. Mild increased signal in the cord at T9-T10 and T10-T11 compatible with compressive myelomalacia. Normal conus medullaris that terminates at the T12-L1 level. No cord syrinx or cystic changes are present. No marrow edema or suspicious process is present. The soft tissue structures are unremarkable. MRI/Spine Thoracic (Routine) IMPRESSION: 1. Small right paracentral disc protrusions at T6-T7 and T10-T11 resulting in compression on the right and anterior aspect of the cord. 2. Small midline disc protrusion at T9-T10 resulting in mild compression anterior aspect of the cord. 3. Mild central canal stenosis at T9-T10. 4. Calcification and hypertrophy of the ligamenta flava at T5-T6 resulting in compression on the thecal sac and mild mass effect on the cord. 5. Mild increased signal in the cord at T9-T10 and T10-T11 with compressive myelomalacia. 6. Slight wedging of the T10-T12 vertebral bodies could be either physiologic or related and mild compression deformities. Electronically Signed: Vasyl Barba MD at 12:58 EST , Service support ,
--- NOTE | 2019-03-10 06:36 | MRI_ITS ---
STUDY: MRI LUMBAR SPINE WITHOUT CONTRAST REASON FOR EXAM: Female, 39 years old. LLE weakness, sensory change left thorax through left leg, X 2 WKS, NKI TECHNIQUE: Standardized fat and water weighted pulse sequences were obtained in the sagittal and axial planes. COMPARISON: None FINDINGS: No compression deformity or fracture line or bone marrow edema is seen. Normal lumbar lordosis. There is mild levoscoliosis of the lumbar spine. Normal conus medullaris that terminates at the T12-L1 level. L1-2: Normal endplates. Normal disc height, hydration and morphology. Normal bilateral facet joints. Normal central canal and bilateral lateral recesses. Normal bilateral intervertebral neural foramina. L2-3: Normal endplates. Normal disc height, hydration and morphology. Normal bilateral facet joints. Normal central canal and bilateral lateral recesses. Normal bilateral intervertebral neural foramina. L3-4: Normal endplates. Diffuse disc desiccation is present. The disc spaces mildly narrow without significant bulging or herniation of disc. The facet joints are mildly hypertrophied. Normal central canal and bilateral lateral recesses. Normal bilateral intervertebral neural foramina. L4-5: Normal endplates. Diffuse disc desiccation is present. The disc spaces mildly narrow without significant bulging or herniation of disc. The facet joints are mildly hypertrophied. Normal central canal and bilateral lateral recesses. Normal bilateral intervertebral neural foramina. L5-S1: Normal endplates. Normal disc height, hydration and morphology. Normal bilateral facet joints. Normal central canal and bilateral lateral recesses. Normal bilateral intervertebral neural foramina. Normal visualized sacral ala. Normal visualized paraspinous soft tissue structures. MRI/Spine Lumbar (Routine) IMPRESSION: 1. Mild degenerative disc disease at L3-L4 and L4-L5. Electronically Signed: Vasyl Barba MD at 19:25 EST , Service support ,
== END | disposition home or self-care (01) ==
PROVIDERS: PCP Family Medicine; Referring Provider Family Medicine; Visit Provider Family Medicine
DX: R29.898 Other symptoms and signs involving the musculoskeletal system (principal)
CPT/HCPCS: 72146; 72148

== ENCOUNTER → 2019-04-18 | Outpatient (CLI) | payer MEDICAID, SELFPAY ==
[2019-04-04 14:01] VITALS: BMI 47.7
[2019-04-18 18:22] LABS: Erythrocyte Sedimentation Rate 32 mm/hr (0-20)
[2019-04-18 18:31] LABS: ALB/GLOB Ratio 0.9 RATIO (0.9-2.4); AST(SGOT) 21 U/L (15-37); Alanine Aminotransfer ALT/SGPT 32 U/L (13-56); Albumin, Serum 3.9 g/dL (3.2-5.0); Alkaline Phosphatase 80 U/L (45-117); Anion Gap 7 (5-15); BUN 11 mg/dL (7-18); BUN/Creat Ratio 11.4 RATIO (10-20); Calcium,Total 9.1 mg/dL (8.5-10.1); Chloride 105 mmol/L (98-107); Creatinine, Serum 0.97 mg/dL (0.55-1.02); EST Glomerular Filtration Rate 67 mL/min (>60); Est Glom Filt Rate - Afr Amer 82 mL/min (>60); Ferritin 121 ng/mL (8-252); Globulin 4.4 g/dL (2.2-4.2); Glucose 102 mg/dL (74-106); Potassium 3.7 mmol/L (3.5-5.1); Protein, Total 8.3 g/dL (6.4-8.2); Sodium Level 137 mmol/L (136-145)
[2019-04-18 18:40] LABS: PTHIN 99.1 pg/mL (18.4-80.1)
== END | disposition home or self-care (01) ==
LOC: MFPLAB 15:37
PROVIDERS: PCP Family Medicine; Referring Provider Family Medicine; Visit Provider Family Medicine
DX: E87.6 Hypokalemia (principal); R25.2 Cramp and spasm; R79.82 Elevated C-reactive protein (CRP); E83.51 Hypocalcemia
CPT/HCPCS: 36415; 80053; 82306; 82728; 83735; 83970; 85652; 86140

== ENCOUNTER → 2019-10-03 | Outpatient (CLI) | payer MEDICAID, SELFPAY ==
[2019-04-04 14:01] VITALS: BMI 47.7
[2019-10-03 17:55] LABS: Absolute Lymphocyte Count 1.71 X10^3/uL (0.83-4.51); Absolute Neutrophil Count 7.8 X10^3/uL (2.0-7.7); Basophil# 0.04 X10^3/uL; Basophil% 0.4 % (0-1); Eosinophil# 0.18 X10^3/uL; Eosinophils% 1.7 % (0-5); Hematocrit 44.1 % (37-47); Hemoglobin 13.9 g/dL (12.0-15.0); Lymphocyte # 1.71 X10^3/ul (4.0); Lymphocyte % 16.4 % (19-41); Mean Corp Hgb Conc 31.5 g/dL (32-36); Mean Corpuscular Hgb 28.5 pg (27.0-32.0); Mean Corpuscular Volume 90.6 fL (81-99); Mean Platelet Vol. 10.1 fl (6.2-12.0); Monocyte# 0.73 X10^3/uL; NRBC Flagged by Analyzer 0 % (0-5); Neutrophil # 7.75 X10^3/uL (2.7-7.7); Neutrophil % 74.1 % (47-70); Platelet Count 391 K/mm3 (150-450); RBC Distribution Width CV 13.1 % (11.6-14.6); RBC Distribution Width SD 42.7 fl (35.1-43.9); Red Blood Count 4.87 M/mm3 (4.2-5.4); White Blood Count 10.5 K/mm3 (4.4-11.0)
[2019-10-03 18:27] LABS: Hemoglobin A1c 6.1 % (3.8-5.6)
[2019-10-03 18:33] LABS: ALB/GLOB Ratio 0.8 RATIO (0.9-2.4); AST(SGOT) 13 U/L (15-37); Alanine Aminotransfer ALT/SGPT 27 U/L (13-56); Albumin, Serum 3.5 g/dL (3.2-5.0); Alkaline Phosphatase 104 U/L (45-117); Anion Gap 8 (5-15); BUN 12 mg/dL (7-18); BUN/Creat Ratio 12.2 RATIO (10-20); Calcium,Total 8.7 mg/dL (8.5-10.1); Chloride 106 mmol/L (98-107); Creatinine, Serum 0.98 mg/dL (0.55-1.02); EST Glomerular Filtration Rate 66 mL/min (>60); Est Glom Filt Rate - Afr Amer 80 mL/min (>60); Globulin 4.6 g/dL (2.2-4.2); Glucose 146 mg/dL (74-106); Potassium 3.8 mmol/L (3.5-5.1); Protein, Total 8.1 g/dL (6.4-8.2); Sodium Level 141 mmol/L (136-145); Thyroid Stim Hormone (TSH) 1.45 uIU/mL (0.358-3.74)
== END | disposition home or self-care (01) ==
LOC: MFPLAB 14:38
PROVIDERS: PCP Family Medicine; Referring Provider Family Medicine; Visit Provider Family Medicine
DX: R11.0 Nausea (principal)
CPT/HCPCS: 36415; 80053; 83036; 84443; 85025

== ENCOUNTER → 2019-10-19 | Outpatient (CLI) | payer MEDICAID, SELFPAY ==
[2019-04-04 14:01] VITALS: BMI 47.7
--- NOTE | 2019-10-19 11:21 | BI_ITS ---
MAMMOGRAPHY - BILATERAL SCREENING REASON FOR EXAM: Female, 39 years old. Routine annual screening examination. PERTINENT HISTORY: Non-contributory. TECHNIQUE: Digital bilateral breast ermelinda (3D mammographic acquisition) in the CC and MLO projections. 2-D mediolateral oblique (MLO) and craniocaudad (CC) views of both breasts were obtained. CAD: Full Field Digital Mammography with Computer Added Detection was performed. COMPARISON: Comparison is made with prior study dated 08/09/2018. FINDINGS: Breast Composition: There are scattered areas of fibroglandular density. There are no dominant masses or suspicious calcifications. No other significant abnormalities are identified. There has been no significant change since the prior study. BI/SCREEN MAMM (CAD) W/ERMELINAD BILAT IMPRESSION: Stable bilateral screening mammogram. Yearly follow-up mammogram recommended. (A) ASSESSMENT CATEGORY: BIRADS Category 1: Negative. A letter regarding these results will be sent to the patient by the facility within 30 days. Approximately 10% of breast cancers are not detected by mammography. A normal mammogram should not delay biopsy of a clinically suspicious abnormality. [id number] Electronically Signed: Lion Perdomo, at 12:20 EDT , Service support ,
== END | disposition home or self-care (01) ==
LOC: OPBI 11:20
PROVIDERS: PCP Family Medicine; Referring Provider Family Medicine; Visit Provider Family Medicine
DX: Z12.31 Encounter for screening mammogram for malignant neoplasm of breast (principal)
CPT/HCPCS: 77063; 77067

== ENCOUNTER → 2019-10-20 | Outpatient (CLI) | payer MEDICAID, SELFPAY ==
[2019-04-04 14:01] VITALS: BMI 47.7
--- NOTE | 2019-10-20 08:03 | RAD_ITS ---
STUDY: AIR-CONTRAST UPPER GI SERIES AND SMALL BOWEL FOLLOW-THROUGH EXAMINATION. REASON FOR EXAM: Female, 39 years old. Postprandial nausea -- constant nausea x 18 months -- has changed diet, eliminated foods, still has nausea FLUOROSCOPY TIME (if supplied): ( 50 seconds ) minutes/seconds. 16 images were obtained. TECHNIQUE: The patient ingested barium. Multiple images of the esophagus, stomach and duodenum were obtained. COMPARISON: None. FINDINGS: The esophagus is unremarkable. There is no evidence of obstruction. No mass lesion is seen. The stomach and duodenum are unremarkable. No evidence of ulceration. No mass lesions present. A small bowel follow-through examination was then obtained. The small bowel transit is normal. There is evidence of a 1.7 cm x 2 cm diverticulum in the third portion of the duodenum. The terminal ileum is unremarkable. RAD/Upper GI/w Small Bowel IMPRESSION: Small diverticulum in the third portion of the duodenum. Electronically Signed: Lion Perdomo, at 10:01 EDT , Service support ,
== END | disposition home or self-care (01) ==
LOC: RAD 08:01
PROVIDERS: PCP Family Medicine; Referring Provider Family Medicine; Visit Provider Family Medicine
DX: R11.0 Nausea (principal)
CPT/HCPCS: 74246; 74248

== ENCOUNTER → 2019-11-08 | Outpatient (CLI) | payer MEDICAID, SELFPAY ==
[2019-04-04 14:01] VITALS: BMI 47.7
--- NOTE | 2019-11-08 09:16 | NM_ITS ---
CLINICAL: 39-year-old female with reported history of postprandial nausea. RADIONUCLIDE HEPATOBILIARY SCINTIGRAPHY COMPARISON: Previous [facility] hepatobiliary scintigraphy study report 03/29/2018 FINDINGS: Following the intravenous administration of 5.7 mCi of 99m Tc Mebrofenin, hepatobiliary images reveal: 1. Relatively prompt and homogeneous radiopharmaceutical concentration is noted by a normal sized liver. No parenchymal defects are identified. 2. Gallbladder activity is identified at 15 minutes post radiopharmaceutical administration. 3. Small intestinal tract is observed at 15 minutes following tracer injection. 4. Washout of the radiopharmaceutical by the hepatic parenchyma appears qualitatively normal. Cholecystokinin (0.02 ug/kg) was administered intravenously over a 30-minute period. The post CCK gallbladder ejection fraction calculated at 20 minutes following Cholecystokinin administration was noted to be 10.0 % (normal greater than 35%) compared to 37.0 % defined on the examination dated 03/29/2018. FL/Hepatobilliary Img w/Pharm Int IMPRESSION: 1. ABNORMAL 99m Tc Mebrofenin hepatobiliary imaging examination with Cholecystokinin. A. A gallbladder ejection fraction calculated to be less than 35% following the administration of Cholecystokinin is consistent with the presence of functional hepatobiliary disease (gallbladder and/or sphincter of Oddi dyskinesia) and/or organic hepatobiliary disease (chronic acalculous cholecystitis and/or cystic duct syndrome) in patients with intermediate to high pretest probabilities of hepatobiliary illness. (Eliana Corrigan et al, Journal of Nuclear Medicine 32:1695, 1990). B. Overall compared to the previous [facility] hepatobiliary scintigraphy study report dated 03/29/2018, there is interim development of an abnormal functional gallbladder response to cholecystokinin administration as defined above. Electronically Signed: Herminio Jimenez DO at 22:35 EDT Tel , Service support ,
== END | disposition home or self-care (01) ==
LOC: NM 09:14
PROVIDERS: PCP Family Medicine; Referring Provider Family Medicine; Visit Provider Family Medicine
DX: R11.0 Nausea (principal)
CPT/HCPCS: 78227; A9537; J2805

== ENCOUNTER → 2019-11-11 | Outpatient (CLI) | payer MEDICAID, SELFPAY ==
[2019-04-04 14:01] VITALS: BMI 47.7
--- NOTE | 2019-11-11 10:25 | NM_ITS ---
CLINICAL: 39-year-old female with reported history of postprandial nausea. SEMI-SOLID PHASE 99m Tc SULFUR COLLOID GASTRIC EMPTYING STUDY COMPARISON: Upper gastrointestinal series and small bowel follow-through report 10/20/2019, [facility] hepatobiliary scintigraphy report 11/08/2019 FINDINGS: The patient was administered 1.1 mCi of 99m Tc sulfur colloid mixed with oatmeal and consumed per os. Image acquisitions in the anterior-posterior projections for a total of 60 minutes. There is prompt visualization of the stomach. There is no gastroesophageal reflux identified. The T ? linear fit was calculated to be 35.68 minutes, (Normal: 12-56 minutes). NM/Gastric Emptying Study IMPRESSION: 1. NORMAL 99m Tc sulfur colloid semi-solid phase (oatmeal) gastric emptying imaging examination. A. There is normal and preserved semi-solid phase gastric emptying compared to normal controls. (Irene et al, J Nucl Med Tech 38: 186, 2010). Electronically Signed: Herminio Jimenez DO at 8:01 EDT Tel , Service support ,
== END | disposition home or self-care (01) ==
LOC: NM 10:24
PROVIDERS: PCP Family Medicine; Referring Provider Family Medicine; Visit Provider Family Medicine
DX: R11.0 Nausea (principal)
CPT/HCPCS: 78264; A9541

== ENCOUNTER → 2019-12-07 | Outpatient (CLI) | payer MEDICAID, SELFPAY ==
[2019-04-04 14:01] VITALS: BMI 47.7
--- NOTE | 2019-12-07 15:45 | RAD_ITS ---
STUDY: X-RAY CHEST REASON FOR EXAM: Female, 39 years old. patient had abnormal chest x-ray at another facility, follow up, no chest complaints TECHNIQUE: PA and lateral views of the chest. COMPARISON: CT scan dated 12/24/2017. FINDINGS: Cardiac silhouette unremarkable. Pulmonary vascularity unremarkable. Aorta unremarkable. No focal patchy airspace opacities. No pleural effusions. Upper abdomen unremarkable. Osseous structures intact. No pneumothorax. RAD/Chest PA and Lateral IMPRESSION: No acute cardiopulmonary findings Electronically Signed: Albert Boogie DO at 13:15 EDT Tel , Service support ,
[2019-12-07 18:05] LABS: Hematocrit 41.8 % (37-47); Hemoglobin 13.1 g/dL (12.0-15.0); Mean Corp Hgb Conc 31.3 g/dL (32-36); Mean Corpuscular Hgb 28.2 pg (27.0-32.0); Mean Corpuscular Volume 90.1 fL (81-99); Platelet Count 351 K/mm3 (150-450); RBC Distribution Width CV 12.8 % (11.6-14.6); RBC Distribution Width SD 42.4 fl (35.1-43.9); Red Blood Count 4.64 M/mm3 (4.2-5.4); White Blood Count 9.2 K/mm3 (4.4-11.0)
[2019-12-07 18:15] LABS: Vitamin D,25 Hydroxy 10.9 ng/mL
[2019-12-07 18:16] LABS: Erythrocyte Sedimentation Rate 29 mm/hr (0-20)
[2019-12-07 18:20] LABS: ALB/GLOB Ratio 0.8 RATIO (0.9-2.4); AST(SGOT) 18 U/L (15-37); Alanine Aminotransfer ALT/SGPT 28 U/L (13-56); Albumin, Serum 3.5 g/dL (3.2-5.0); Alkaline Phosphatase 83 U/L (45-117); Anion Gap 6 (5-15); BUN 9 mg/dL (7-18); Calcium,Total 8.3 mg/dL (8.5-10.1); Chloride 105 mmol/L (98-107); Creatinine, Serum 0.82 mg/dL (0.55-1.02); EST Glomerular Filtration Rate 81 mL/min (>60); Est Glom Filt Rate - Afr Amer 98 mL/min (>60); Ferritin 107 ng/mL (8-252); Globulin 4.6 g/dL (2.2-4.2); Glucose 87 mg/dL (74-106); Potassium 3.6 mmol/L (3.5-5.1); Protein, Total 8.1 g/dL (6.4-8.2); Sodium Level 139 mmol/L (136-145)
[2019-12-08 08:50] LABS: PTHIN 111.1 pg/mL (18.4-80.1)
[2019-12-09 15:27] LABS: ANTINUCLEAR ANTIBODIES DIRECT Negative (Negative)
== END | disposition home or self-care (01) ==
LOC: MTLAB 15:42
PROVIDERS: PCP Family Medicine; Referring Provider Family Medicine; Visit Provider Family Medicine
DX: K81.1 Chronic cholecystitis (principal); R93.89 Abnormal findings on diagnostic imaging of other specified body structures; E55.9 Vitamin D deficiency, unspecified; R11.0 Nausea
CPT/HCPCS: 36415; 71046; 80053; 82306; 82728; 83970; 85027; 85652; 86038; 86140

== ENCOUNTER 2020-02-22 06:09 | Day surgery (SDC) | payer MEDICAID, SELFPAY ==
[2019-04-04 14:01] VITALS: BMI 47.7
--- NOTE | 2020-02-22 | TESH_PTH ---
PATIENT: CARLOS STRANGE [place] [facility] [id number] AGE/SX: 40/F ROOM: RE02/22/[address]: Dr. Darya Cordon DO : 1980 BED: DIS: 02/22/2020 SPEC #: [id number] RECD: 02/22/20 10:00 STATUS: AMARILIS FRANCESCA #: [id number] GAVIN: 02/22/20 00:[address]: Darya Cordon DEPT: SURGICAL PATHOLOGY RECD BY: Horacio Barron ENTERED: 02/22/20 10:11 SP TYPE: TENDON OTHR DR: Dr. Albert Gibson MD Tissues: Tendon and tendon sheath, NOS Procedures: Surgery Specimen Level III HEADER OPERATION: Lateral elbow epicondyle debridement/repair PRE-OP DIAGNOSIS: Lateral epicondylitis of elbow TISSUE SUBMITTED: Extensor tendon right elbow MICROSCOPIC DIAGNOSIS Extensor tendon of right elbow, biopsy: Tendinous tissue with reparative and degenerative change. AM:alyssa 02/23/2020 MICROSCOPIC DESCRIPTION Slides are reviewed. GROSS DESCRIPTION Received in fixative is one container labeled with the patient's name and designated extensor tendon right elbow. The specimen consists of multiple irregular fragments of lim-white soft tissue that in aggregate measure 2 x 1.6 x 0.2 cm. The specimen is totally submitted in one cassette. / AM:alyssa 02/22/20 TC:5 CPT: 54913
[2020-02-22 06:34] LABS: Internal QC Validated? YES +Cl - CLEAR BKGD; Pregnancy, Urine Negative Negative
[2020-02-22 06:45] VITALS: BP 152/79; PULSE 71; RESP 16; TEMP 37.1; O2SAT 98; BMI 49.0
[2020-02-22] MEDS: Lactated Ringers 1,000 ML 100 ML IV (06:49)
--- NOTE | 2020-02-22 07:32 | HP_ITS ---
I have re-examined the patient. There are no clinical changes since date of exam. Intake Intake Visit Reasons: RIGHT ELBOW Accompanied by: Self Is patient in pain?: Yes (ache) Pain scale (1-10): 2 Allergies Penicillins Allergy (Mild, Verified 01/24/20 13:14) Hives Medications Pyridoxine HCl [Vitamin B-6] 50 mg PO DAILY 04/25/16 [History Confirmed 01/24/20] proMETHazine tablet [Phenergan] 50 mg PO PRN PRN 04/25/16 [History Confirmed 01/24/20] Hydrocodone Bitart/Apap 5-325 [[place] 5MG-325MG] 1 - 2 tab PO Q6H PRN PRN #60 tab 04/30/16 [Rx Confirmed 01/24/20] amlodipine 10 mg tablet 10 mg PO DAILY #90 tab 12/16/17 [Rx Confirmed 01/24/20] bisoprolol fumarate 10 mg tablet 10 mg PO QHS tab 12/16/17 [History Confirmed 01/24/20] calcium carb-magnesium carb 250 mg-300 mg tablet 1 tab PO BID tab 12/16/17 [History Confirmed 01/24/20] cholecalciferol (vitamin D3) 25 mcg (1,000 unit) capsule 1,000 unit PO DAILY 12/16/17 [History Confirmed 01/24/20] coenzyme Q10 100 mg capsule 100 mg PO DAILY 12/16/17 [History Confirmed 01/24/20] fexofenadine 180 mg tablet 180 mg PO DAILY 12/16/17 [History Confirmed 01/24/20] fluticasone propionate 50 mcg/actuation nasal spray,suspension 1 spray INTRANASAL DAILY 12/16/17 [History Confirmed 01/24/20] quinapril 20 mg tablet 20 mg PO BID tab 12/16/17 [History Confirmed 01/24/20] meclizine 25 mg tablet 25 mg PO DAILY PRN 01/14/18 [History Confirmed 01/24/20] esomeprazole magnesium 20 mg tablet,delayed release 40 mg PO DAILY #30 tab 08/10/18 [History Confirmed 01/24/20] hydrochlorothiazide 25 mg tablet 25 mg PO DAILY #90 tab 01/21/19 [Rx Confirmed 01/24/20] [facility] Medical History (Updated 01/24/20 @ 13:47 by Noelle Samaniego) Premature ventricular beats (Chronic) Rapid palpitations (Chronic) Essential (primary) hypertension (Chronic) GERD (gastroesophageal reflux disease) (Chronic) Migraine (Chronic) Obesity (Chronic) Obstructive sleep apnea (Chronic) Surgical History left lateral epicondylar release (Resolved) Family History Father Myocardial infarction CT in his 40's Heart disease Hypertension Sister Hypertension Social History (Updated 01/24/20 @ 14:[address] Darya Cordon, ) Smoking Status: Never smoker HPI RIGHT ELBOW: Surgical H&P: Yes Details: Parts of this documentation were recorded by a scribe, this documentation accurately reflects the service provided and the decisions made by me, Dr. Darya Cordon DO 01/24/20 1311. CARLOS STRANGE is a 39 year old F here today for her right elbow. Patient is interested in scheduling surgery. Patient states she had surgery scheduled in April of this year. Surgery was canceled d/t COVID. Patient states she is worsening and would like to proceed with surgery. Patient reports stiffness, shooting pains. Denies tingling and numbness. Pain is rated: 2/10 from the pain scale. Pain is located medial and lateral with radiation of pain into her right hand. ROS Musc Reports system reviewed and no additional complaints, except as docu, Reports joint pain, Denies joint swelling, Denies numbness, Reports stiffness, Denies tingling Neuro No numbness, No tingling Ortho Exam Right Elbow Test: Yes TTP Lateral Epicondyle, Yes Pain w/ resist wrist ext, Yes Pain w/ resist 3rd dig ext Sensation: Radial: I, Ulnar: I, Median: I Motor: Elbow Extension: 5, Elbow Flexion: 5, EPL: 5, FDP-2: 5, 1st Dorsal Interosseous: 5 Assessment & Plan Problems 1. Lateral epicondylitis of elbow M77.10 Plan Reviewed the pre-operative plans with the patient. Risks and benefits of the procedure were fully explained, including but not limited to infection, neurovascular injury, continued pain, arthritis, stiffness, need for further surgery, re-injury, DVT, PE, general risks of anesthesia, and loss of limb or life. The patient understands all the risks and does wish to proceed with written consent. We discussed the current risk associated COVID-19. While it is understood that there is a community spread of COVID 19 the risk of mickey COVID-19 while at [facility] is very low, however, the risk cannot be completely mitigated because of the community spread of the disease. We discussed in detail the risk of exposure to and or potential harm posed by the COVID-19 virus with having a surgery/procedure at this time versus the risk of delaying the surgery/procedure. Is not possible to know either the risk of delaying the surgery procedure or chance of getting an infection with perfect accuracy, but a joint decision was made to proceed at this time with a schedule surgery/procedure as indicated on the consent form. Patient was notified that we will need to comply with any screening or testing [facility] wishes to perform or that surgery may be delayed for any positive results. All questions answered. Patient in agreement of plan. Follow up post-op or sooner if pain, swelling, numbness or associated symptoms, or concerns develop. Coding Level of Care Code Off vis,est,level 3 Diagnoses Lateral epicondylitis of elbow M77.10
--- NOTE | 2020-02-22 08:09 | DCINST_ITS ---
Discharge Diet: No Restrictions - keep dressing clean,dry and intact, follow up in 2 weeks, call with concerns, move hand/wrist as tolerated Discharge Activity: May Not Drive May shower in (days): 1 Ice area for (Minutes): 20 - Every hour while awake. Weight Bearing Status: Weight bearing as tolerated Keep extremity elevated above heart level: Operative Extremity Call your doctor if your incision/area has: Continuous Slow Oozing, Sudden Increased Bleeding, Increased Pain/ Swelling, Increased Redness, Foul Smelling Discharge Call your doctor if you observe: Fever of 101 or Higher, Coldness, Increased Pain, Numbness or Tingling, Change in Color, Calf discomfort Allergies/Adverse Reactions: Allergies Penicillins Allergy (Verified 02/15/20 09:29) Hives Unknown Control Allergy (Uncoded 02/15/20 09:29) Hives Medications to take at Discharge Pyridoxine HCl [Vitamin B-6] 50 mg PO DAILY 04/25/16 proMETHazine tablet [Phenergan] 50 mg PO PRN PRN 04/25/16 Hydrocodone Bitart/Apap 5-325 [[place] 5MG-325MG] 1 - 2 tab PO Q6H PRN PRN #60 tab 04/30/16 amlodipine 10 mg tablet 10 mg PO DAILY #90 tab 12/16/17 bisoprolol fumarate 10 mg tablet 10 mg PO QHS tab 12/16/17 calcium carb-magnesium carb 250 mg-300 mg tablet 1 tab PO BID tab 12/16/17 cholecalciferol (vitamin D3) 25 mcg (1,000 unit) capsule 1,000 unit PO DAILY 1 02/15/17 coenzyme Q10 100 mg capsule 100 mg PO DAILY 12/16/17 fexofenadine 180 mg tablet 180 mg PO DAILY 12/16/17 fluticasone propionate 50 mcg/actuation nasal spray,suspension 1 spray INTRANASAL DAILY 12/16/17 quinapril 20 mg tablet 20 mg PO BID tab 12/16/17 meclizine 25 mg tablet 25 mg PO DAILY PRN 01/14/18 esomeprazole magnesium 20 mg tablet,delayed release 40 mg PO DAILY #30 tab 08/10/18 hydrochlorothiazide 25 mg tablet 25 mg PO DAILY #90 tab 01/21/19 Oxycodone HCl/Acetaminophen [Percocet 5/325] 1 - 2 tablet PO Q6H PRN PRN 5 Days #28 tablet 02/22/20 The following prescriptions were given: Oxycodone HCl/Acetaminophen [Percocet 5/325] 1 - 2 tablet PO Q6H PRN PRN 5 Days #28 tablet PRN Reason: Pain Transmission Status: Sent to [facility] Primary Care Physician: Albert Gibson MD [Primary Care Provider] - Test Results: Test results from this visit will be discussed in further detail at your follow- up appointment, if applicable. Please Follow Up With: Darya Cordon, DO - [phone]
--- NOTE | 2020-02-22 08:10 | PCM.OPRPT ---
Report of Operation Date of Procedure: 02/22/20 Pre-Operative Diagnosis: right lateral epicondylitis Post-Operative Diagnosis: Same Surgery/Procedure Performed:: Right open lateral epicondyle debridement and ECRB debridement and repair. residential mortgage manager: Sekou Zamorano Type of Anesthesia:: General Anesthesiologist: Tarun Peña Specimen's removed: ECRB tendon Estimated Blood Loss (mL): min Fluids Replaced: 800cc lr Description of Procedure: Preop note Patient is a 40-year-old female with continued right lateral epicondylitis. MRI confirms this patient failed conservative treatment patient elected proceed with right open lateral epicondyle debridement and ECRB debridement repair. Risk benefits and alternatives surgery discussed with patient. Risk including but not limited to blood loss, blood clot, infection, neurovascular, failure procedure, loss of life and loss of limb. Patient is very like proceed with right lateral open lateral condyle debridement and ECRB debridement repair. Operative next Patient seen and examined preoperative holding area. Right arm was marked. Patient brought to the operating room placed supine on the operating table. Signed, anesthesia, antibiotics were administered. The right arm was prepped and draped in usual sterile sterile technique with a tourniquet around her upper arm. All bony promises well-padded SCDs placed on her bilateral lower extremity. The palpate her lateral appetite condyle and made about a 2 cm incision over to marked out our incision and an oblique fashion over the lateral epicondyle. The right arm was then elevated exsanguinated tourniquet was raised her pressure 250 torr. Timeout was performed. We then used a 15 blade to create her skin incision. We used bipolar to coagulate any bleeders we did encounter we dissected down tenotomies to level of the, common extensor tendon the interval between the ECRL and EDC. We then excised made a longitudinal incision in line with the fibers. We then were able to see the grayish ECRB underneath and this was removed in its entirety as much as we could see we then debrided with a rasp the undersurface of the ECRL and EDC to further remove any of the loose grayish ECRB. And then palpated the radial head and the lateral epicondyle multiple times about the case to ensure that we were in the correct plane and the correct distance for excision. We then further debrided lateral condyle we drilled with a 4 5 K wire into the lateral epicondyle made good he has had bleeding we then irrigated the incision with copious amounts of sterile saline closed the CR LADC interval. We then with a 3-0 Vicryl we then closed the skin with a 3-0 Vicryl and 4-0 Monocryl for the skin is well. Steri's were applied. Sterile dressings were applied and a posterior splint. Tourniquet was deflated for total working time of 30 minutes. Patient tolerated procedure well no complications transferred recovery room in stable condition. Operative note Nonweightbearing right arm May use wrist and hand as tolerated Follow-up in 2 weeks Call with increased pain numbness tingling or further issues arise Pharmacy has Percocet This note was generated with [employer] dictation software. It may contain incorrect words, spelling, and punctuation that were not noted in checking the note before signing.
[2020-02-22] MEDS: Mupirocin Ointment 22gm Tube 1 APPLIC (08:55)
[2020-02-22 09:16] VITALS: BP 134/73; BP 152/79; PULSE 76; RESP 18; TEMP 36.2; O2SAT 98
[2020-02-22 09:30] VITALS: BP 131/66; BP 152/79; PULSE 66; RESP 18; O2SAT 96
[2020-02-22 09:45] VITALS: BP 126/64; BP 152/79; PULSE 65; RESP 18; TEMP 36.1; O2SAT 97
[2020-02-22] MEDS: HYDROcodone Bitartrate/Apap 5/325 Tablet PO (10:16)
[2020-02-22 10:57] VITALS: BP 129/57; BP 152/79; PULSE 68; RESP 16; TEMP 36.4; O2SAT 99
== END 2020-02-22 10:58 | disposition home or self-care (01) ==
LOC: SDC 06:10 → AC 06:10
PROVIDERS: Anesthesiology; PCP Family Medicine; Referring Provider Orthopaedic Surgery; Visit Provider Orthopaedic Surgery
PROC: (CPT 24357; principal; 2020-02-22 07:45)
DX: M77.11 Lateral epicondylitis, right elbow (principal); I10 Essential (primary) hypertension; K21.9 Gastro-esophageal reflux disease without esophagitis; E66.9 Obesity, unspecified; G47.33 Obstructive sleep apnea (adult) (pediatric); Z68.42 Body mass index [BMI] 45.0-49.9, adult; Z79.899 Other long term (current) drug therapy
CPT/HCPCS: 24358; 81025; 87426; 88304; C9803; J7120; J2405

== ENCOUNTER 2020-04-05 07:08 | Day surgery (SDC) | payer MEDICAID, SELFPAY ==
[2020-03-06 13:10] VITALS: BMI 47.7
--- NOTE | 2020-04-02 17:52 | PCM.HPOB.BLA ---
- Problem List (1) DUB (dysfunctional uterine bleeding) Status: Acute History and Physical Date of Admission: 04/05/20 Pre-Op History and Physical HPI: The patient is a 40 year old female presenting for pre-operative visit. She is scheduled for Hysteroscopy D&C, polypectomy, IUD removal IUD placement for DUB and polyp with IUD in place - strings currently not visualized on 04/05/2020. Procedure discussed along with risks, benefits and complications. Other alternatives discussed for management. Consent form signed? Yes. PAST MEDICAL HISTORY PAST SURGICAL HISTORY CURRENT MEDICATIONS PERSONAL HISTORY: SOCIAL HISTORY FAMILY HISTORY REVIEW OF SYSTEMS: General: The patient denies fatigue, denies weight loss, denies weight gain, denies feeling hot, and feelings of cold. Eyes: The patient denies glaucoma, denies eye injury/surgery, denies glasses or contacts. Ear/Nose/Throat: The patient denies allergies, denies hayfever, denies ear infections, and denies bloody noses. Cardiovascular: The patient denies chest pain, denies heart disease, and denies poor circulation. Respiratory: The patient denies tuberculosis, denies pneumonia, denies frequent cough, denies shortness of breath, and denies coughing up blood. Gastrointestinal: The patient denies difficulty swallowing, denies acid reflux, denies ulcers, denies jaundice/hepatitis, denies gallbladder problems, denies vomiting, denies black or tarry stools, denies hemorrhoids, denies bleeding from rectum, denies diverticulitis, denies constipation, denies diarrhea, denies loss of stool control, and denies hernias. Kidney/Bladder: The patient denies kidney stones, denies urine infections, and denies bloody urine. Skin: The patient denies a history of skin cancer, denies bleeding/changing moles, and denies a history of skin rash. Neurologic: The patient denies a history of epilepsy/convulsions, denies headaches, denies head/spinal injuries, and denies stroke/TIA. Psychiatric: The patient denies psychiatric medications, denies depression, and denies voices. Endocrine: The patient denies thyroid disorders, denies diabetes, and denies hormonal problems. Hematologic: The patient denies a history of bruising, denies bleeding, and denies anemia. Infections: The patient denies a history of measles and mumps, denies rheumatic fever, and denies sexually transmitted diseases. Musculoskeletal: The patient denies back pain/injury, denies back problems, denies sciatica, denies knee/foot trouble, denies arthritis, or denies gout. PHYSICAL EXAMINATION: VITALS: Blood pressure 128/86, height 5' 7 (1.702 m), weight (!) 317 lb (143.8 kg), last menstrual period 07/11/2015. GENERAL: The patient is well nourished, well hydrated in no acute distress. , The patient is oriented to time, place, and person. NECK: Supple. No lynphadenopathy, normal thyroid, no thyromegaly. LUNGS: Clear to auscultation bilaterally. no wheezes, rhonchi or rales HEART: Regular rate and rhythm ABD: Obese. LE: No edema. IMPRESSION: DUB, IUD in place and strings not visualized, polyp on pelvic US PLAN: Hysteroscopy, D&C, polypectomy, IUD removal, Mirena IUD placement. Discussed r/b/a to the surgery. Discussed that there may not be a polyp present at the time of the hysteroscopy -- reviewed limitations of ultrasound. Patient desires to proceed with surgery. Consent signed. Mandy Cornejo DO
[2020-04-03 14:43] LABS: Hematocrit 44.6 % (37-47); Mean Corp Hgb Conc 31.4 g/dL (32-36); Mean Corpuscular Hgb 28.8 pg (27.0-32.0); Mean Corpuscular Volume 91.8 fL (81-99); Mean Platelet Vol. 9.6 fl (6.2-12.0); Platelet Count 321 K/mm3 (150-450); RBC Distribution Width CV 13.8 % (11.6-14.6); RBC Distribution Width SD 46.1 fl (35.1-43.9); Red Blood Count 4.86 M/mm3 (4.2-5.4); White Blood Count 10.1 K/mm3 (4.4-11.0)
[2020-04-05] VITALS (7 sets, daily range): BP systolic 120–144; BP diastolic 66–87; PULSE 54–63; RESP 12–16; TEMP 36.3–37.1; O2SAT 96–100; BMI 49.2
[2020-04-05 07:37] LABS: Internal QC Validated? YES +Cl - CLEAR BKGD; Pregnancy, Urine Negative Negative
[2020-04-05] MEDS: Lactated Ringers 1,000 ML 100 ML IV (07:53)
--- NOTE | 2020-04-05 08:23 | DCINST_ITS ---
Discharge Diet: No Restrictions Discharge Activity: Return to Normal Activity, May Drive - wait at least 24 hours after surgery, May Shower May resume sexual activity in: 1 week - no tampons, intercourse, hot tubs, tub baths Weight Bearing Status: Weight bearing as tolerated Lifting Restrictions: None Call your doctor if you observe: Fever of 101 or Higher, Inability to urinate, Inability to have a bowel movement, Using more than one pad per hour, Shortness of breath, Dizziness, Fainting spells, Swelling in the ankles, Chest pain, Increased palpitations (irregular heartbeat), Calf discomfort, Uncontrolled pain Allergies/Adverse Reactions: Allergies Penicillins Allergy (Verified 04/05/20 07:43) Hives Unknown Control Allergy (Uncoded 04/05/20 07:43) Hives Medications to take at Discharge Pyridoxine HCl [Vitamin B-6] 50 mg PO DAILY 04/25/16 proMETHazine tablet [Phenergan] 50 mg PO PRN PRN 04/25/16 Hydrocodone Bitart/Apap 5-325 [[place] 5MG-325MG] 1 - 2 tab PO Q6H PRN PRN #60 tab 04/30/16 amlodipine 10 mg tablet 10 mg PO DAILY #90 tab 12/16/17 bisoprolol fumarate 10 mg tablet 10 mg PO QHS tab 12/16/17 calcium carb-magnesium carb 250 mg-300 mg tablet 1 tab PO BID tab 12/16/17 cholecalciferol (vitamin D3) 25 mcg (1,000 unit) capsule 1,000 unit PO DAILY 12/16/17 coenzyme Q10 100 mg capsule 100 mg PO DAILY 12/16/17 fexofenadine 180 mg tablet 180 mg PO DAILY 12/16/17 fluticasone propionate 50 mcg/actuation nasal spray,suspension 1 spray INTRANASAL DAILY 12/16/17 quinapril 20 mg tablet 20 mg PO BID tab 12/16/17 meclizine 25 mg tablet 25 mg PO DAILY PRN 01/14/18 esomeprazole magnesium 20 mg tablet,delayed release 40 mg PO DAILY #30 tab 08/10/18 hydrochlorothiazide 25 mg tablet 25 mg PO DAILY #90 tab 01/21/19 Primary Care Physician: Albert Gibson MD [Primary Care Provider] - Test Results: Test results from this visit will be discussed in further detail at your follow- up appointment, if applicable. Please Follow Up With: Mandy Cornejo, DO When: 1-2 weeks
--- NOTE | 2020-04-05 08:25 | PCM.OPRPT ---
Problem List (1) DUB (dysfunctional uterine bleeding) Status: Acute Report of Operation Date of Procedure: 04/05/20 Pre-Operative Diagnosis: DUB, IUD in place and strings not visualized, polyp on pelvic US Post-Operative Diagnosis: As above Surgery/Procedure Performed:: Hysteroscopy, IUD removal, polypectomy, dilation and curettage, Mirena IUD placement Description of Surgical Findings:: Uterine cavity had multiple (greater than 5) small polyps noted throughout the cavity. These polyps appeared to be less than one centimeter in size. The IUD was within the uterine cavity and the strings were not visualized. The IUD was removed intact. There were no fibroids in the uterine cavity. The lining appeared moderate to thick. Type of Anesthesia:: MAC Special Medications: None Specimen's removed: Endometrial curettings and polyps Drains: None Estimated Blood Loss (mL): < 50 cc Fluids Replaced: 450 cc fluid deficit Description of Procedure: Start time 0841 Stop time 0908 She was taken to the operating room where MAC anesthesia was found to be adequate. She was prepped and draped in the dorsal llithotomy position using yellowfin stirrups. A weighted speculum was placed in the vagina to expose the cervix. The anterior lip of the cervix was grasped with single-tooth tenaculum. The cervix was serially dilated. Using polyp forceps the IUD strings were grasped from within the endocervical canal and the IUD was removed easily and noted to be intact. The cervix was then serially dilated more to accommodate the Symphion hysteroscope. The Symphion hysteroscope was advanced to the fundus of the uterus. The uterus was distended with normal saline as distention media. Multiple polyps were noted throughout the uterine cavity. The resection device was used to remove the polyps and perform a curettage. The hysteroscope was then removed. A sharp curettage was performed. The polyps and endometrial curettings were sent to pathology for review. The uterus sounded to 9 cm. The Mirena IUD was placed in usual fashion and the strings were cut to 2 cm. Bleeding was hemostatic. All instruments were removed from the vagina. Vaginal sweep was performed. Sponge instrument counts were correct. Patient was taken to recovery in stable condition. Grafts/Implants Used: Mirena IUD - Complications None - Admit VTE Documentation VTE Present on Admission: No VTE Mechan Device Prophylaxis: SCD's
--- NOTE | 2020-04-05 08:40 | EMB_PTH ---
PATIENT: CARLOS STRANGE [place] [facility] [id number] AGE/SX: 40/F ROOM: RE04/05/[address]: Dr. Mandy Cornejo DO : 1980 BED: DIS: 04/05/2020 SPEC #: [id number] RECD: 04/05/20 11:49 STATUS: AMARILIS REFelisa #: [id number] GAVIN: 04/05/20 08:[address]: Mandy Cornejo DEPT: SURGICAL PATHOLOGY RECD BY: Suad Patiño ENTERED: 04/05/20 12:31 SP TYPE: ENDOM BX/C OTHR DR: Dr. Albert Gibson MD Tissues: Endometrium, NOS Procedures: Surgery Specimen Level IV HEADER OPERATION: Hysteroscopy, D & C, IUD removal PRE-OP DIAGNOSIS: Dysfunctional uterine bleeding TISSUE SUBMITTED: Endometrial curettings MICROSCOPIC DIAGNOSIS Endometrial curettings: Fragments of benign endometrial tissue with extensive pseudodecidualization and focal calcifications. Mild chronic endometritis and minimal acute endometritis. Fragments of benign ecto- and endocervical mucosa with chronic inflammation. TAL:alyssa 04/06/2020 COMMENT Correlation with clinical findings and appropriate follow up are necessary. MICROSCOPIC DESCRIPTION Slides are reviewed. GROSS DESCRIPTION Received in fixative is one container labeled with the patient's name and designated endometrial curettings. The specimen consists of multiple fragments of hemorrhagic soft tissue that in aggregate measure 5 x 3 x 0.3 cm. The specimen is totally submitted in two cassettes. / TAL:alyssa 04/05/20 TC:5 CPT: 69874
[2020-04-05] MEDS: Lidocaine 1% (20 ml mdv) 20 ML Vial (08:42)
== END 2020-04-05 10:33 | disposition home or self-care (01) ==
LOC: SDC 07:08 → AC 07:09
PROVIDERS: Anesthesiology; PCP Family Medicine; Referring Provider Obstetrics & Gynecology; Visit Provider Obstetrics & Gynecology
PROC: 0UB98ZZ Excision of Uterus, Via Natural or Artificial Opening Endoscopic (ICD-10-PCS; CPT 58558; principal; 2020-04-05 08:25)
DX: N71.0 Acute inflammatory disease of uterus (principal); N71.1 Chronic inflammatory disease of uterus; N93.8 Other specified abnormal uterine and vaginal bleeding; K21.9 Gastro-esophageal reflux disease without esophagitis; I10 Essential (primary) hypertension; G47.30 Sleep apnea, unspecified; Z79.899 Other long term (current) drug therapy; Z20.822 Contact with and (suspected) exposure to COVID-19
CPT/HCPCS: 58300; 58301; 58558; 36415; 81025; 85027; 86850; 86900; 86901; 87426; 88305; C9803; J7120; J2405

== ENCOUNTER 2020-05-07 11:30 | Outpatient (RCR) | payer MEDICAID, SELFPAY ==
[2020-04-05 07:44] VITALS: BMI 49.2
--- NOTE | 2020-04-10 14:41 | HP.OTEVAL ---
Patient's Visit Information CARLOS STRANGE is a 40 year old F, referred to Occupational Therapy by Dr. Darya Cordon DO, with a diagnosis of right lat. ep,. Date of Evaluation: 04/10/20 Occupational Therapist: Elsy Gary, OTR/Jad, CHT - Subjective This 40 year old female was seen for OT eval with dx of lat. epicondylitis. Pt states she had pain on and off for about two years. Pt states she was to have sx about a year ago but due to COVID sx was delayed. Pt states Feb 21 she had sx a right lateral epicondyle debridement. pt states she continues to have limited right elbow ROM and weakness with ADls and IADLs. pt would like to regain ROM and strenght to retun to her PLOF. - Pain right elbow 2 Pain Intensity Range: 4 - ROM Elbow: right -15/130 left 0/145 Forearm: right WNL left WNL Wrist: right WNL left WNL - Strength [employer] Sales Representative: right 28# left 45# Lateral Pinch: right 16# left 12# Tripod Pinch: right 8# left 14# Strength Comments: pt demo with weak right city route driver and pinch strength - Sensation Sensation Comments: denies - Quick DASH-Disab of Arm,Shoulder& Hand Quick DASH Score: 53.3325 - Goals Goal:: pt will demo a increase in right city route driver to 40# or greater to increase pts ind. with ADLs and IADLs by d/c Goal:: pt will demo right elbow ext to -5 or greater and elbow flex to 140 or greater to return pt to PLOF and ind. with ADLs and IADLS by d/c Goal:: pt will report no pain greater than 1/10 with use of right UE with ADLs and IADLS - Rehabilitation General Assessment: Pt currently 7 weeks s/p right lateral ECRB/ECRL debridement. Pt continues to demo with limited right elbow ROM and strength limiting her with IND ADLs and IADLS. Pt would benefit from skilled OT services 1-2x week for 4 weeks to return pt to PLOF with ADLs and IADLs. Today therapist ed. pt on end range stretch for elbow ROM. Therapist will initiate PRE with triceps/ biceps/ forearm and city route driver. pt demo understanding and agree to POC. Rehabilitation Potential: Good - Anticipated Interventions A/AAROM/PROM, Strengthening, Scar Care, Triggerpoint Release, Joint Protection/Energy Conservation, Ergonomic Education - Visit Plan Frequency: 1-2x /Week Duration: 4 Weeks General Plan: initiate passive strength of elbow flex/ext followed with PRE following protocol. TEXT: Thank you for the opportunity to evaluate your patient. For Medicare and Medicare HMO plans, please review the plan of care and approve it. It will need to be FAXED BACK to us at [phone] for Medicare purposes. Please let me know if there are questions or concerns regarding this plan of care. Physician Signature: Date:
--- NOTE | 2020-05-07 12:03 | HP.OTDCSUM_ITS ---
It has been my pleasure to treat CARLOS STRANGE under orders from Dr. Darya Cordon DO, for the diagnosis of right lat. ep, for a total of 8 visit(s). Please see the following information for a summary of their discharge status. % Improvement: 95 Objective/Function: pt demo right elbow -10/143. left elbow 0/145. pt slight limited with ROM but this does not limit her with ADls. pt demo ability to slate picker 45# from floor, waist and shoulder levels with good lifting mechanics. right dispatcher service strength 50# a increase form 28#. right lateral pinch 20# a increase from 16# and right tripod pinch 14# increase from 8# -. right tricpes MMT 4+/5. right biceps MMT 5/5. pt has met OT goals at this time. therapist rec'd cont w ith HEP Patient Goals: Regain Mobility, Regain Strength, Use Hand/Wrist/Arm Normally Again Goal:: pt will demo a increase in right dispatcher service to 40# or greater to increase pts ind. with ADLs and IADLs by d/c Goal:: pt will demo right elbow ext to -5 or greater and elbow flex to 140 or greater to return pt to PLOF and ind. with ADLs and IADLS by d/c Goal:: pt will report no pain greater than 1/10 with use of right UE with ADLs and IADLS Plan: cont POC. May 15 appt with Ortho, 3 more appts. Discharge Comments: pt has been see for 8 visits in OT- pt has made great gains in her strength and mobility. Pt has met OT goals and will cont. HEP of band for shoulder, tric/bic, wrist eccentric,and wrist ergo with daily tasks. pt agree to POC. If there are questions or concerns regarding this patient's occupational therapy, please fell free to call me at [phone]. Thank you for the referral of this patient. Sincerely, Elsy Gary, OTR/L, CHT
== END 2020-05-07 19:00 | disposition home or self-care (01) ==
LOC: OT 11:30
PROVIDERS: PCP Family Medicine; Referring Provider Orthopaedic Surgery; Visit Provider Orthopaedic Surgery
DX: Z98.890 Other specified postprocedural states (principal)
CPT/HCPCS: 97110; 97165; 97530

== ENCOUNTER → 2020-10-10 | Outpatient (CLI) | payer MEDICAID, SELFPAY | END | disposition home or self-care (01) | LOC: LABSPEC 13:38 | PROVIDERS: PCP Family Medicine; Referring Provider Family Medicine; Visit Provider Family Medicine | DX: N39.0 Urinary tract infection, site not specified (principal) | CPT/HCPCS: 87086; 87088; 87186 ==

== ENCOUNTER → 2020-11-02 14:37 | Outpatient (CLI) | payer MEDICAID, SELFPAY ==
--- NOTE | 2020-11-02 14:49 | BI_ITS ---
MAMMOGRAPHY - BILATERAL SCREENING REASON FOR EXAM: Female, 40 years old. Routine annual screening examination. PERTINENT HISTORY: Non-contributory. TECHNIQUE: Digital bilateral breast ermelinda (3D mammographic acquisition) in the CC and MLO projections. 2-D mediolateral oblique (MLO) and craniocaudad (CC) views of both breasts were obtained. CAD: Full Field Digital Mammography with Computer Added Detection was performed. COMPARISON: Comparison is made with prior study 10/19/2019 and 08/09/2018. FINDINGS: Breast Composition: There are scattered areas of fibroglandular density. There are no dominant masses or suspicious calcifications. No other significant abnormalities are identified. There has been no significant change since the prior study. BI/SCRN MAMM (CAD)W/ERMELINDA BILAT IMPRESSION: Stable bilateral screening mammogram. Yearly follow-up mammogram recommended. (A) ASSESSMENT CATEGORY: BIRADS Category 1: Negative. A letter regarding these results will be sent to the patient by the facility within 30 days. Approximately 10% of breast cancers are not detected by mammography. A normal mammogram should not delay biopsy of a clinically suspicious abnormality. [id number] Electronically Signed: Lion Perdomo MD at 15:44 EDT , Service support ,
== END ==
PROVIDERS: PCP Family Medicine; Referring Provider Family Medicine; Visit Provider Family Medicine
DX: Z12.31 Encounter for screening mammogram for malignant neoplasm of breast (principal)
CPT/HCPCS: 77063; 77067

== ENCOUNTER → 2021-07-17 | Outpatient (CLI) | payer MEDICAID, SELFPAY ==
--- NOTE | 2021-07-17 10:24 | RAD_ITS ---
STUDY: X-RAY - LUMBAR SPINE REASON FOR EXAM: Female, 41 years old. PAINTechnologist Notes low back pain into left leg since she woke up this morning TECHNIQUE: XR Spine Lumbar Min 4 Views COMPARISON: None FINDINGS: Normal lumbar lordosis. There is no substantial scoliosis. There is a normal alignment of the vertebrae. There is multilevel endplate spondylosis of the lumbar vertebrae. There is multi-level degenerative disc disease with multi-level disc space narrowing. The soft tissue structures are unremarkable. RAD/L/S Spine Min 4 Views IMPRESSION: There are no acute findings. Electronically Signed: Himanshu Silveira MD at 16:37 EDT ,
== END | disposition home or self-care (01) ==
LOC: MTRAD 10:22
PROVIDERS: PCP Family Medicine; Referring Provider Family Medicine; Visit Provider Family Medicine
DX: M54.9 Dorsalgia, unspecified (principal)
CPT/HCPCS: 72110

== ENCOUNTER 2021-10-18 11:01 | Outpatient (CLI) | payer MEDICAID, SELFPAY ==
[2021-10-18 11:54] LABS: Absolute Lymphocyte Count 1.67 X10^3/uL (0.83-4.51); Absolute Neutrophil Count 6.1 X10^3/uL (2.0-7.7); Basophil# 0.03 X10^3/uL; Basophil% 0.4 % (0-1); Eosinophil# 0.18 X10^3/uL; Eosinophils% 2.1 % (0-5); Hematocrit 38.7 % (37-47); Hemoglobin 12.9 g/dL (12.0-15.0); Lymphocyte # 1.67 X10^3/ul (0.83-4.51); Lymphocyte % 19.5 % (19-41); Mean Corp Hgb Conc 33.3 g/dL (32-36); Mean Corpuscular Hgb 29.7 pg (27.0-32.0); Mean Corpuscular Volume 89.2 fL (81-99); Mean Platelet Vol. 9.8 fl (6.2-12.0); Monocyte# 0.57 X10^3/uL; Monocyte% 6.7 % (0-10); NRBC Flagged by Analyzer 0 % (0-5); Neutrophil # 6.07 X10^3/uL (2.7-7.7); Neutrophil % 70.8 % (47-70); Platelet Count 323 K/mm3 (150-450); RBC Distribution Width CV 13.3 % (11.6-14.6); RBC Distribution Width SD 43.7 fl (35.1-43.9); Red Blood Count 4.34 M/mm3 (4.2-5.4); White Blood Count 8.6 K/mm3 (4.4-11.0)
[2021-10-18 12:24] LABS: ALB/GLOB Ratio 0.9 RATIO (0.9-2.4); AST(SGOT) 18 U/L (15-37); Alanine Aminotransfer ALT/SGPT 30 U/L (13-56); Albumin, Serum 3.4 g/dL (3.2-5.0); Alkaline Phosphatase 71 U/L (45-117); Anion Gap 5 (5-15); BUN 15 mg/dL (7-18); BUN/Creat Ratio 18.8 RATIO (10-20); Calcium,Total 8.9 mg/dL (8.5-10.1); Chloride 106 mmol/L (98-107); EST Glomerular Filtration Rate 83 mL/min (>60); Est Glom Filt Rate - Afr Amer 101 mL/min (>60); Globulin 3.9 g/dL (2.2-4.2); Glucose 113 mg/dL (74-106); Potassium 3.8 mmol/L (3.5-5.1); Protein, Total 7.3 g/dL (6.4-8.2); Sodium Level 139 mmol/L (136-145)
[2021-10-23 10:08] LABS: QNTFERON TB Mitogen Value > 10.00 IU/mL (.); QNTFERON TB Nil Value 0 IU/mL (.); QNTFERON TB1+ Ag Value 0.08 IU/mL (.); QNTFERON TB2+ Ag Value 0.01 IU/mL (.)
[2021-10-23 16:43] LABS: Hepatitis B Core Ab Total Negative (Negative); QNTIFERON TB Positive Criteria Negative (Negative)
== END 2021-10-18 23:59 | disposition home or self-care (01) ==
LOC: MTLAB 11:02
PROVIDERS: PCP Family Medicine; Referring Provider Physician Assistant Medical; Visit Provider Physician Assistant Medical
DX: Z11.1 Encounter for screening for respiratory tuberculosis (principal); L40.0 Psoriasis vulgaris; Z79.899 Other long term (current) drug therapy
CPT/HCPCS: 36415; 80053; 85025; 86480; 86704

== ENCOUNTER → 2021-11-05 | Outpatient (CLI) | payer MEDICAID, SELFPAY ==
--- NOTE | 2021-11-05 14:44 | BI_ITS ---
MAMMOGRAPHY - BILATERAL SCREENING REASON FOR EXAM: Female, 41 years old. Routine annual screening examination. PERTINENT HISTORY: Non-contributory. TECHNIQUE: Digital bilateral breast ermelinda (3D mammographic acquisition) in the CC and MLO projections. 2-D mediolateral oblique (MLO) and craniocaudad (CC) views of both breasts were obtained. CAD: Full Field Digital Mammography with Computer Added Detection was performed. COMPARISON: Comparison is made with prior study 11/02/2020 and 10/19/2019. FINDINGS: Breast Composition: There are scattered areas of fibroglandular density. There are no dominant masses or suspicious calcifications. No other significant abnormalities are identified. There has been no significant change since the prior study. BI/SCRN MAMM (CAD)W/ERMELINDA BILAT IMPRESSION: Stable bilateral screening mammogram. Yearly follow-up mammogram recommended. (A) ASSESSMENT CATEGORY: BIRADS Category 1: Negative. A letter regarding these results will be sent to the patient by the facility within 30 days. Approximately 10% of breast cancers are not detected by mammography. A normal mammogram should not delay biopsy of a clinically suspicious abnormality. [id number] Electronically Signed: Lion Perdomo MD at 15:27 EDT ,
== END | disposition home or self-care (01) ==
LOC: OPBI 14:42
PROVIDERS: PCP Family Medicine; Visit Provider Family Medicine
DX: Z12.31 Encounter for screening mammogram for malignant neoplasm of breast (principal)
CPT/HCPCS: 77063; 77067

== ENCOUNTER → 2022-10-06 | Outpatient (CLI) | payer MEDICAID, SELFPAY ==
[2022-10-06 18:03] LABS: Absolute Lymphocyte Count 1.47 X10^3/uL (0.83-4.51); Absolute Neutrophil Count 7.9 X10^3/uL (2.0-7.7); Basophil# 0.05 X10^3/uL; Basophil% 0.5 % (0-1); Eosinophil# 0.15 X10^3/uL; Eosinophils% 1.5 % (0-5); Hemoglobin 12.9 g/dL (12.0-15.0); Lymphocyte # 1.47 X10^3/ul (0.83-4.51); Lymphocyte % 14.3 % (19-41); Mean Corp Hgb Conc 32.3 g/dL (32-36); Mean Platelet Vol. 10.2 fl (6.2-12.0); Monocyte# 0.66 X10^3/uL; Monocyte% 6.4 % (0-10); NRBC Flagged by Analyzer 0 % (0-5); Neutrophil # 7.86 X10^3/uL (2.7-7.7); Neutrophil % 76.7 % (47-70); Platelet Count 350 K/mm3 (150-450); RBC Distribution Width CV 12.9 % (11.6-14.6); RBC Distribution Width SD 43.8 fl (35.1-43.9); White Blood Count 10.3 K/mm3 (4.4-11.0)
[2022-10-06 18:40] LABS: AST(SGOT) 14 U/L (15-37); Alanine Aminotransfer ALT/SGPT 23 U/L (13-56); Albumin, Serum 3.8 g/dL (3.2-5.0); Alkaline Phosphatase 76 U/L (45-117); Anion Gap 7 (5-15); BUN 11 mg/dL (7-18); BUN/Creat Ratio 13.1 RATIO (10-20); Calcium,Total 8.5 mg/dL (8.5-10.1); Chloride 106 mmol/L (98-107); Cholesterol 107 mg/dL (200); Creatinine, Serum 0.84 mg/dL (0.55-1.02); EST Glomerular Filtration Rate 78 mL/min (>60); Est Glom Filt Rate - Afr Amer 95 mL/min (>60); Globulin 3.9 g/dL (2.2-4.2); Glucose 79 mg/dL (74-106); High Density Lipoprotein 36 mg/dL; Potassium 3.3 mmol/L (3.5-5.1); Protein, Total 7.7 g/dL (6.4-8.2); Sodium Level 137 mmol/L (136-145); Triglycerides 84 mg/dL; Very Low Density Lipoprotein 17 mg/dL (5-40)
[2022-10-06 18:46] LABS: Microalbumin,Random Urine 63.5 mg/L (NO RANGE EST.); Microalbumin:Creatinine Ratio 12.9 mg/g CRE (<30 mg/g CRE)
== END | disposition home or self-care (01) ==
LOC: MTLAB 15:53
PROVIDERS: PCP Family Medicine; Referring Provider Family Medicine; Visit Provider Family Medicine
DX: L40.50 Arthropathic psoriasis, unspecified (principal); I10 Essential (primary) hypertension; I25.10 Atherosclerotic heart disease of native coronary artery without angina pectoris
CPT/HCPCS: 36415; 80053; 80061; 82043; 82570; 85025

== ENCOUNTER → 2022-11-25 | Outpatient (CLI) | payer MEDICAID, SELFPAY ==
--- NOTE | 2022-11-25 10:30 | BI_ITS ---
MAMMOGRAPHY - BILATERAL SCREENING 3-D TOMOSYNTHESIS REASON FOR EXAM: Female, 42 years old. annual PERTINENT HISTORY: No significant family history. TECHNIQUE: 2-D mammograms and 3-D Tomosynthesis of the breast (s) were performed. CAD was performed. COMPARISON: 11/05/2021 FINDINGS: The breast composition is composed of scattered fibroglandular density. Scattered benign calcifications are seen. No dense spiculated masses or suspicious microcalcifications are identified. No architectural distortion is identified. There is no skin thickening or retraction. There has been no significant change since the prior study. BI/SCRN MAMM (CAD)W/ERMELINDA BILAT IMPRESSION: No mammographic signs of malignancy. Routine yearly mammograms recommended. ASSESSMENT CATEGORY: BIRADS Category 1: Negative. A letter regarding these results will be sent to the patient by the facility within 30 days. FOLLOW UP RECOMMENDATION: Yearly follow up mammogram recommended. (A) Approximately 10% of breast cancers are not detected by mammography. A normal mammogram should not delay biopsy of a clinically suspicious abnormality. Electronically Signed: Herminio Rossi MD at 13:28 EDT ,
== END | disposition home or self-care (01) ==
LOC: OPBI 10:30
PROVIDERS: PCP Family Medicine; Referring Provider Family Medicine; Visit Provider Family Medicine
DX: Z12.31 Encounter for screening mammogram for malignant neoplasm of breast (principal)
CPT/HCPCS: 77063; 77067

== ENCOUNTER → 2023-03-05 | Outpatient (CLI) | payer MEDICAID, SELFPAY ==
--- OUTSIDE RECORDS SUMMARY | 2023-03-05 12:09 | XMS RPT_ITS | CCD ---
Author Name Unknown Address [address] [place] [address] Organization [facility] Care Team Providers Care Special Projects Coordinator Name Role Phone Emilyavery Kimmie Unavailable [phone] FIGUEROA GIBSON MD Primary Care Physician [phone] Figueroa Gibson MD Primary Care Provider Figueroa Gibson MD Primary Care Provider Figueroa Gibson MD Primary Care Provider [phone] Allergies Allergy Classification Reported Allergen(s) Allergy Type Date of Onset Reaction(s) Facility (2 sources) penicillin v drug allergy 04-22-2012 [facility] Work Phone: (1 source) Penicillin; Translations: [penicillins] Drug Allergy [facility] (10 sources) Penicillins Drug Allergy 12-31-2010 [facility] Work Phone: (13 sources) Norethindrone-Et hin Estradiol Drug Allergy 04-25-2014 [facility] Work Phone: (3 sources) Penicillins Drug Allergy 12-31-2010 [facility] Work Phone: Medications Current Medications Medication Drug Class(es) Dates Sig (Normalized) Sig (Original) Aspirin (14 sources) Platelet Aggregation Inhibitor, Nonsteroidal Anti-inflammatory Drug Start: 07-10-2020 Ecotrin Adult Low Strength 81 mg oral delayed release tablet Dose : 81 mg = 1 tab(s), Oral, qDayM, # 30 tab(s), 11 Refill(s), Pharmacy: [id number], 170.2, cm, 07/07/20 20:45:00 EDT, Height, kg, 07/07/20 20:45:00 EDT, Dosing Weight Start Date: 07/10/20 Status: Ordered Completed/Discontinued Medications Medication Drug Class(es) Dates Sig (Normalized) Sig (Original) acetaminophen 325 mg / HYDROcodone bitartrate 5 mg oral tablet (14 sources) Opioid Agonist Start: 12-01-2019 acetaminophen-hydr ocodone 325 mg-5 mg oral tablet Dose = 1 tab(s), Oral, BID, PRN for pain, 0 Refill(s), 144.3 Start Date: 12/01/19 Status: Ordered Problems Active Problems Problem Classification Problem Date Documented Da te Episodic/Chronic Abdominal pain (8 sources) Pain in female pelvis; Translations: [Pelvic and perineal pain] Episodic Coronary atherosclerosis and other heart disease (2 sources) Old myocardial infarction; Translations: [Old myocardial infarction] Chronic Disorders of lipid metabolism (1 source) Hyperlipidemia 08-08-2020 Chronic Essential hypertension (1 source) Hypertensive disorder 11-18-2015 Chronic Genitourinary symptoms and ill-defined conditions (2 sources) Urgent desire to urinate; Translations: [Urgency of urination] Episodic Headache; including migraine (1 source) Migraine 11-18-2015 Chronic Menstrual disorders (17 sources) Intermenstrual bleeding - irregular; Translations: [Excessive and frequent menstruation with irregular cycle] Onset: 08-06-2011 08-06-2011 Chronic Other female genital disorders (1 source) Dyspareunia; Translations: [Other specified dyspareunia] Chronic Other female genital disorders (1 source) Pelvic floor dysfunction; Translations: [Other specified conditions associated with female genital organs and menstrual cycle] Episodic Other nervous system disorders (4 sources) Carpal tunnel syndrome; Translations: [Ulnar neuropathy] Onset: 11-10-2013 11-11-2013 Chronic Other nervous system disorders (2 sources) Carpal tunnel syndrome of right wrist; Translations: [Carpal tunnel syndrome, right upper limb] Chronic Other nervous system disorders (1 source) Neuritis of right ulnar nerve; Translations: [Lesion of ulnar nerve, right upper limb] Chronic Other nervous system disorders (1 source) Carpal tunnel syndrome of left wrist; Translations: [Carpal tunnel syndrome, left upper limb] Chronic Other nervous system disorders (1 source) Paresthesia; Translations: [Paresthesia of skin] Episodic Residual codes; unclassified (2 sources) Pain; Translations: [Pain, unspecified] Episodic Past or Other Problems Problem Classification Problem Date Documented Da te Episodic/Chronic Complications of surgical procedures or medical care (13 sources) Postoperative wound infection; Translations: [Infection following a procedure, other surgical site, initial encounter] Onset: 10-25-2011 10-25-2011 Episodic Other aftercare (2 sources) Encounter for other specified surgical aftercare; Translations: [Encounter for other specified surgical aftercare] Onset: 05-13-2016 05-13-2016 Episodic Other connective tissue disease (4 sources) Lateral epicondylitis, left elbow; Translations: [Medial epicondylitis] Onset: 04-26-2015 04-26-2015 Episodic Other connective tissue disease (13 sources) Pain in right hand; Translations: [Pain in right hand] Onset: 11-19-2020 11-19-2020 Episodic Other gastrointestinal disorders (13 sources) Adhesion of intestine; Translations: [Peritoneal adhesions (postprocedural) (postinfection)] Onset: 10-22-2011 10-22-2011 Episodic Other nervous system disorders (13 sources) Skin sensation disturbance; Translations: [Unspecified disturbances of skin sensation] Onset: 03-14-2019 03-14-2019 Episodic Other non-traumatic joint disorders (6 sources) Pain in elbow; Translations: [Pain in wrist] Onset: 04-22-2012 04-26-2015 Episodic Ovarian cyst (13 sources) Cyst of ovary; Translations: [Unspecified ovarian cyst, unspecified side] Onset: 08-25-2011 08-25-2011 Episodic Results Test Name Value Interpretation Reference Range Facil ity Vital Signs Date Time Vital Sign Value Performing Clinician Facility 08-27-2021 11:22-0400 Body height 170.2 cm Dodie Richards MD Work Phone: [facility] 08-27-2021 11:22040 Body weight 132.04 kg Dodie Richards MD Work Phone: [facility] 08-27-2021 11:22-0400 Diastolic blood pressure 82 mm[Hg] Dodie Richards MD Work Phone: [facility] 08-27-2021 11:22-0400 Systolic blood pressure 138 mm[Hg] Dodie Richards MD Work Phone: [facility] 07-02-2021 09:24-0400 Body height 170.2 cm Nita Reaper DAYCARE WORKER.PATIENT SITTER Work Phone: [facility] 07-02-2021 09:24-0400 Body weight 130.64 kg Nita Reaper DAYCARE WORKER.PATIENT SITTER Work Phone: [facility] 07-02-2021 09:24-0400 Diastolic blood pressure 84 mm[Hg] Nita Reaper DAYCARE WORKER.PATIENT SITTER Work Phone: [facility] 07-02-2021 09:24-0400 Systolic blood pressure 143 mm[Hg] Nita Reaper DAYCARE WORKER.PATIENT SITTER Work Phone: [facility] 11-10-2013 13:11-0400 BMI (Body Mass Index) 42.91 kg/m2 [facility] Work Phone: 11-10-2013 13:11-0400 Weight 124.29 kg [facility] Work Phone: 05-24-2013 14:01-0400 BP Diastolic 75 mm[Hg] [facility] Work Phone: 05-24-2013 14:01-0400 BP Systolic 116 mm[Hg] [facility] Work Phone: 10-28-2012 13:40-0400 Pulse (Heart Rate) 75 /min [facility] Work Phone: 04-22-2012 10:47-0400 Height 170.18 cm [facility] Work Phone: Encounters Encounter Date Encounter Type Care Provider Facility Start: 10-08-2021 End: 10-08-2021 Subsequent hospital visit by physician Mri 3 Radio Main Q (I-Stat/1.5t/3t) Work Phone: MRI Q Procedures Date Procedure Procedure Detail Performing Clinician Start: 06-21-2021 Nerve conduction enmanuel dies 5-6 studies Darya Domínguez Neris DO Work Phone: Start: 06-19-2021 Radex elbow complete minimum 3 views Kimmielen Cordon DO Work Phone: Start: 07-07-2020 Percutaneous coronar y intervention RENATA TURK MD Plan of Treatment Date Care Activity Detail Author Start: 08-14-2023 HPV TESTING HPV TESTING [facility] Start: 08-14-2023 PAP TESTING PAP TESTING [facility] Start: 10-10-2021 Influenza vaccination INFLUENZA (#1) [facility] Start: 10-06-2021 Urine microalbumin profile DTAP,TDAP,TD (2 - Td or Tdap) [facility] Start: 02-09-2021 DEPRESSION ASSESSMENT DEPRESSION ASSESSMENT [facility] Start: 2018 Mammography MAMMOGRAM [facility] Start: 10-11-2015 End: 10-11-2015 Mri joint upr extrem w/o dye MRI Joint Upper Extremity [facility] Work Phone: Start: 04-26-2015 End: 04-26-2015 X-ray exam of elbow X-Ray, Elbow [facility] Work Phone: Start: 02-09-1996 HEPATITIS C SCREENING HEPATITIS C SCREENING [facility] Start: 02-09-1996 HIV SCREENING HIV SCREENING [facility] Start: 1990 Adult depression screening assessment DEPRESSION SCREENING [facility] Start: 1990 COVID-19 VACCINE (1) COVID-19 VACCINE (1) [facility] Start: 02-09-1984 PNEUMOCOCCAL (1 - PCV) PNEUMOCOCCAL (1 - PCV) [facility] Start: 1983 COVID-19 VACCINE (#1) COVID-19 VACCINE (#1) [facility] Start: 1978 COVID-19 VACCINE (#1) COVID-19 VACCINE (#1) [facility] Start: 1978 HEPATITIS B (1 of 3 - 3-dose series) HEPATITIS B (1 of 3 - 3-dose series) [facility] End: 08-01-2022 Mri pelvis w/o & w/contrast material MRI FEMALE PELVIS WO/W IVCON Radiology Routine Pelvic and perineal pain Dysmenorrhea Menorrhagia with regular cycle Chronic pelvic pain in female 1 Occurrences starting 07/02/2021 until 08/01/2022 [facility] Work Phone: Immunizations Immunization Date Immunization Notes Care Provider Fa cility 12-01-2020 influenza, injectabl e, quadrivalent, contains preservative Darya Cordon DO Work Phone: [facility] Work Phone: 12-13-2013 influenza, seasonal, injectable Darya Cordon DO Work Phone: [facility] Work Phone: 10-07-2011 tetanus toxoid, reduced diphtheria toxoid, and acellular pertussis vaccine, adsorbed Darya Cordon DO Work Phone: [facility] Work Phone: Payers Date Payer Category Payer Medicaid [employer] [id number] 2011-Present [phone] [address] [place] [address] Medicaid [id number] 2011 Medicaid [facility] [id number] 2011-Present [phone] [address] [place] [address] Medicaid [id number] Social History Date Type Detail Facility Start: 03-17-2011 End: 08-08-2020 Never smoked tobacco (finding) [facility] Sex Assigned At [facility] Start: 01-16-2021 End: 07-05-2021 Alcohol intake Current drinker of alcohol (finding) [facility] Start: 04-01-2018 History SDOH Alcohol Comment rarely [facility] Start: 1980 Sex Assigned At Female [facility] Start: 05-24-2021 End: 08-27-2021 Exposure to SARS-CoV-2 (event) Not sure [facility] Start: 03-17-2011 Tobacco use and exposure Smokeless tobacco non-user [facility] Clinical Notes 08-06-2011 to 10-08-2021 Luana Herrera RN - 10/08/2021 7:00 PM EDTRT Jazmin(R) - 10/08/2021 7:00 PM Poncho Richards MD - 08/27/2021 11:00 AM EDTTelephone Encounter - Dean Fernandez RN - 07/25/2021 11:01 AM EDT Note Date & Type Note Facility 10-08-2021 Note HNO ID: [id number] Author: Luana Herrera RN Service: Radiology Author Type: Registered Nurse Type: Progress Notes Filed: 10/08/2021 6:57 PM Note Text: Radiology Service Progress Note DATE OF SERVICE: October 08, 2021 TIME: 6:53 PM PATIENT WEIGHT: 290 LBS PATIENT IDENTITY VERIFICATION COMPLETED USING TWO (2) STANDARD IDENTIFIERS: Name and Date of confirmed by patient verbally and Name and Date of confirmed by identification band. FALL SCREENING: Has the patient had 2 falls in the last year or 1 fall with injury or currently using an Ambulatory Assistive Device (Walker, Cane, Wheelchair, Crutches, etc.)? No PATIENT GENDER DATA: Female. status: : No status: NO. ALLERGIES: Reviewed and unchanged CONTRAST ALLERGY: No EXAM: MRI - CONTRAST TYPE: GROUP II IV SITE: Ambulatory: A peripheral IV was started in the Right antecubital site with a Angio cath: 22 gauge. and A Saline lock was inserted per protocol IV SITE APPEARANCE: Clean,Dry and Intact SIGNATURE: Luana Herrera RN PATIENT NAME: Carlos López DATE: October 08, 2021 TIME: 6:53 PM [facility] 10-08-2021 Note HNO ID: [id number] Author: RT Jazmin(R) Service: Radiology Author Type: Technologist Type: Progress Notes Filed: 10/08/2021 7:44 PM Note Text: Radiology Service Progress Note PATIENT NAME: Carlos López DATE OF SERVICE: October 08, 2021 TIME: 7:43 PM PATIENT IDENTITY VERIFICATION COMPLETED USING TWO (2) IDENTIFIERS: Name and Date of confirmed by patient verbally and Name and Date of confirmed by identification band. FALL SCREENING: Has the patient had 2 falls in the last year or 1 fall with injury or currently using an Ambulatory Assistive Device (Walker, Cane, Wheelchair, Crutches, etc.)? No PATIENT GENDER DATA: Female. status: : No status: NO. PATIENT RELEVANT IMPLANT DATA REVIEWED: Yes RADIOLOGY DEPARTMENT: MR; Exam(s) Completed: Body: Female Pelvis PERIPHERAL IV DATA: Site assessment: Clean,Dry and Intact, Site disposition Discontinued SIGNED BY: RT Jazmin(R) October 08, 2021 7:43 PM [facility] 10-08-2021 History of Present illness Narrative Radiology Service Progress Note DATE OF SERVICE: October 08, 2021 TIME: 6:53 PM PATIENT WEIGHT: 290 LBS PATIENT IDENTITY VERIFICATION COMPLETED USING TWO (2) STANDARD IDENTIFIERS: Name and Date of confirmed by patient verbally and Name and Date of confirmed by identification band. FALL SCREENING: Has the patient had 2 falls in the last year or 1 fall with injury or currently using an Ambulatory Assistive Device (Walker, Cane, Wheelchair, Crutches, etc.)? No PATIENT GENDER DATA: Female. status: : No status: NO. ALLERGIES: Reviewed and unchanged CONTRAST ALLERGY: No EXAM: MRI - CONTRAST TYPE: GROUP II IV SITE: Ambulatory: A peripheral IV was started in the Right antecubital site with a Angio cath: 22 gauge. and A Saline lock was inserted per protocol IV SITE APPEARANCE: Clean,Dry and Intact SIGNATURE: Luana Herrera RN PATIENT NAME: Carlos López DATE: October 08, 2021 TIME: 6:53 PM Radiology Service Progress Note PATIENT NAME: Carlos López DATE OF SERVICE: October 08, 2021 TIME: 7:43 PM PATIENT IDENTITY VERIFICATION COMPLETED USING TWO (2) IDENTIFIERS: Name and Date of confirmed by patient verbally and Name and Date of confirmed by identification band. FALL SCREENING: Has the patient had 2 falls in the last year or 1 fall with injury or currently using an Ambulatory Assistive Device (Walker, Cane, Wheelchair, Crutches, etc.)? No PATIENT GENDER DATA: Female. status: : No status: NO. PATIENT RELEVANT IMPLANT DATA REVIEWED: Yes RADIOLOGY DEPARTMENT: MR; Exam(s) Completed: Body: Female Pelvis PERIPHERAL IV DATA: Site assessment: Clean,Dry and Intact, Site disposition Discontinued SIGNED BY: RT Jazmin(R) October 08, 2021 7:43 PM documented in this encounter [facility] 08-27-2021 Note HNO ID: [id number] Author: Dodie Richards MD Service: ? Author Type: Physician Type: Progress Notes Filed: 09/01/2021 4:15 PM Note Text: [facility] [place] SECTION FOR MINIMALLY INVASIVE GYNECOLOGIC SURGERY OUTPATIENT VISIT DATE 08/27/2021 OUTPATIENT VISIT TYPE CONSULT PRIMARY CARE PHYSICIAN: Figueroa Gibson MD ([facility]) [address] [place] [address] CHIEF COMPLAINT: Pelvic pain Consultation requested by Nita Mendes APRN.CNP for an opinion regarding Carlos López , and my final recommendations will be communicated back to the requesting physician by way of shared medical record or letter via [place] mail. HISTORY OF PRESENT ILLNESS: Carlos López is a pleasant 41 year old (C/S; 13 yo boy; currently Mirena IUD) female who presents with a history of pelvic pain, fibroids. She would like to discuss possible hysterectomy as well. In clinic today, pt reports having AUB for the past months Her most bothersome sxs include pain, cramping. She notes her periods are irregular last 1-7 days, with light flow. Pt soaks her pad/tampon within 1 day and does not pass clots with no/association of cramping with menses. Has had pelvic pain for several years. Previously resolved with Mirena IUD. When this was removed. Pain recurred Mirena replaced 18 mos ago. More recently however, pain has recurred. Severe Dysmenorrhea: No. Spots only Acyclic pain: Stabbing severe. 3-4 x /week. Stops her in her tracks. Dysuria: neg Dyschezia: neg Dyspareunia: Yes. Right side deep. Pt reports she does not desire future child bearing and is currently sexually active. PSG: lscp exploration for abd pain. One tube removed at that time She has had the following work up thus far: Pelvic US She has had an endometrial biopsy (2014). IMAGING/LABS: PELVIC US [facility] 01/17/2021 Impression anteverted fibroid uterus that measures 123 mm x 67 mm x 77 mm. 3D rendering of the uterus confirms the proper location of the IUD within the endometrial cavity. The largest fibroids are described below. 1. Size 41 mm x 49 mm x 38 mm. Mean 42.7 mm. Vol 39.973 cm?. Right lateral wall 2. Size 22 mm x 19 mm x 22 mm. Mean 21.0 mm. Vol 4.815 cm?. Anterior, Right 3. Size 29 mm x 29 mm x 30 mm. Mean 29.3 mm. Vol 13.210 cm?. Posterior, Left Both ovaries are visualized and appear normal. No adnexal masses were observed. There is no free fluid visualized in the peritoneal cavity. Technique: Three dimensional imaging was created on a dedicated stand-alone 3D workstation with images created and archived, and supervised and reviewed by the interpreting physician utilizing images from a US Scan performed on 01/17/2021 Recommendations Follow up as clinically indicated. EMB [id number] CONVERTED FINAL DIAGNOSIS Endometrium, biopsy - Fragments of benign endometrium with small inactive glands and pseudodecidualized stoma, consistent with exogenous progestin effect. - Rare psammomatous calcification identified (see comment). ? MRI scheduled at [facility] on Thursday - will move to [place]. Past Gynecologic History: Menarche:11 LMP: June 2021 Approximate Last pap cytology: 2019 History of abnormal history Yes, more than 10 years ago, colposcopy negative History of STI: No History of PID: No Past Obstetrical History: Vaginal delivery: 0 Section: 1 Ectopic: 0 Miscarriage: 1 Past Medical History: PAST MEDICAL HISTORY Diagnosis Date - Heart attack (HCC) 07/07/2020 - History of heavy periods - HTN (hypertension) - Migraines - NISHA on CPAP - Snoring Past Surgical History: PAST SURGICAL HISTORY Procedure Laterality Date - DANDC, DIAG AND/OR THERAPEUTIC 04/05/2020 hysteroscopy, DANDC, polypectomy, IUD removal and reinsertion - ELBOW SURGERY HX Left 2016 - ELBOW SURGERY HX Right 02/2020 - ESOPHAGOGASTRODUODENOSCOPY TRANSORAL DIAGNOSTIC 04/16/2018 EGD - INSERTION OF IUD 05/23/2014 - IR RT HEART CATH 07/07/2020 1 stent placed - LAPAROSCOPY ENTEROLYSIS SEPARATE PROCEDURE 10/16/2011 adhesions - RTG - PAST SURGICAL HISTORY OF 2006 - PAST SURGICAL HISTORY OF 2003 bilat carpal tunnel - PAST SURGICAL HISTORY OF D7C - PAST SURGICAL HISTORY OF 10/16/2011 laproscopic ovary cystectomy- JV - UNSPECIFIED ORAL SURGERY PROCEDURE, BY REPORT 07/03/2015 Family History: FAMILY HISTORY Problem Relation Age of Onset - Allergies Mother - Skin Cancer Mother - Diabetes Mother - Hypertension Father - Heart Father - Skin Cancer Father - other (bladder cancer) Father - Hypertension Sister Social History: [employer] at [employer]. Nonsmoker. Social History Tobacco Use - Smoking status: Never Smoker - Smokeless tobacco: Never Used Vaping Use - Vaping Use: Never used Substance Use Topics - Alcohol use: Yes Comment: rarely - Drug use: No Current Outpatient Medications Medication Sig - (more content not included)... [facility] 08-27-2021 History of Present illness Narrative Images from the original note were not included. [facility] SECTION FOR MINIMALLY INVASIVE GYNECOLOGIC SURGERY OUTPATIENT VISIT DATE 08/27/2021 OUTPATIENT VISIT TYPE CONSULT PRIMARY CARE PHYSICIAN: Figueroa Gibson MD ([facility]) [address] [place] [id number] CHIEF COMPLAINT: Pelvic pain Consultation requested by Nita Mendes APRN.CNP for an opinion regarding Carlos López , and my final recommendations will be communicated back to the requesting physician by way of shared medical record or letter via [place] mail. HISTORY OF PRESENT ILLNESS: Carlos López is a pleasant 41 year old (C/S; 13 yo boy; currently Mirena IUD) female who presents with a history of pelvic pain, fibroids. She would like to discuss possible hysterectomy as well. In clinic today, pt reports having AUB for the past months Her most bothersome sxs include pain, cramping. She notes her periods are irregular last 1-7 days, with light flow. Pt soaks her pad/tampon within 1 day and does not pass clots with no/association of cramping with menses. Has had pelvic pain for several years. Previously resolved with Mirena IUD. When this was removed. Pain recurred Mirena replaced 18 mos ago. More recently however, pain has recurred. Severe Dysmenorrhea: No. Spots only Acyclic pain: Stabbing severe. 3-4 x /week. Stops her in her tracks. Dysuria: neg Dyschezia: neg Dyspareunia: Yes. Right side deep. Pt reports she does not desire future child bearing and is currently sexually active. PSG: lscp exploration for abd pain. One tube removed at that time She has had the following work up thus far: Pelvic US She has had an endometrial biopsy (2014). IMAGING/LABS: PELVIC US I 01/17/2021 Impression anteverted fibroid uterus that measures 123 mm x 67 mm x 77 mm. 3D rendering of the uterus confirms the proper location of the IUD within the endometrial cavity. The largest fibroids are described below. 1. Size 41 mm x 49 mm x 38 mm. Mean 42.7 mm. Vol 39.973 cm . Right lateral wall 2. Size 22 mm x 19 mm x 22 mm. Mean 21.0 mm. Vol 4.815 cm . Anterior, Right 3. Size 29 mm x 29 mm x 30 mm. Mean 29.3 mm. Vol 13.210 cm . Posterior, Left Both ovaries are visualized and appear normal. No adnexal masses were observed. There is no free fluid visualized in the peritoneal cavity. Technique: Three dimensional imaging was created on a dedicated stand-alone 3D workstation with images created and archived, and supervised and reviewed by the interpreting physician utilizing images from a US Scan performed on 01/17/2021 Recommendations Follow up as clinically indicated. EMB [id number] CONVERTED FINAL DIAGNOSIS Endometrium, biopsy - Fragments of benign endometrium with small inactive glands and pseudodecidualized stoma, consistent with exogenous progestin effect. - Rare psammomatous calcification identified (see comment). MRI scheduled at [facility] on Thursday - will move to [place]. Past Gynecologic History: Menarche:11 LMP: June 2021 Approximate Last pap cytology: 2018 History of abnormal history Yes, more than 10 years ago, colposcopy negative History of STI: No History of PID: No Past Obstetrical History: Vaginal delivery: 0 Section: 1 Ectopic: 0 Miscarriage: 1 Past Medical History: PAST MEDICAL HISTORY Diagnosis Date Heart attack (HCC) 07/07/2020 History of heavy periods HTN (hypertension) Migraines NISHA on CPAP Snoring Past Surgical History: PAST SURGICAL HISTORY Procedure Laterality Date D&C, DIAG AND/OR THERAPEUTIC 04/05/2020 hysteroscopy, D&C, polypectomy, IUD removal and reinsertion ELBOW SURGERY HX Left 2016 ELBOW SURGERY HX Right 02/2020 ESOPHAGOGASTRODUODENOSCOPY TRANSORAL DIAGNOSTIC 04/16/2018 EGD INSERTION OF IUD 05/23/2014 IR RT HEART CATH 07/07/2020 1 stent placed LAPAROSCOPY ENTEROLYSIS SEPARATE PROCEDURE 10/16/2011 adhesions - RTG PAST SURGICAL HISTORY OF 2006 PAST SURGICAL HISTORY OF 2003 bilat carpal tunnel PAST SURGICAL HISTORY OF D7C PAST SURGICAL HISTORY OF 10/16/2011 laproscopic ovary cystectomy- JV UNSPECIFIED ORAL SURGERY PROCEDURE, BY REPORT 07/03/2015 Family History: FAMILY HISTORY Problem Relation Age of Onset Allergies Mother Skin Cancer Mother Diabetes Mother Hypertension Father Heart Father Skin Cancer Father other (bladder cancer) Father Hypertension Sister Social History: [employer]. Nonsmoker. Social History Tobacco Use Smoking status: Never Smoker Smokeless tobacco: Never Used Vaping Use Vaping Use: Never used Substance Use Topics Alcohol use: Yes Comment: rarely Drug use: No Current Outpatient Medications Medication Sig rimegepant (NURTEC ODT) 75 mg disintegrating tablet Take 75 mg by mouth once daily as needed. baclofen vaginal suppository 10 mg (CPD) Use 1 Suppository vaginally daily at bedtime. Unwrap and insert one suppository as directed. Surgical Lubricant Jelly gel For MRI Female Pelvis, MRI department to provide. Administer intra-vaginal Surgilube immediately prior the MRI procedure (total amount to patient toleranace). levonorgestrel (MIRENA) 20 mcg/24 hours (7 yrs) 52 mg IUD 1 Each by INTRAUTERINE route as directed. lamoTRIgine (LAMICTAL) 100 mg tablet Take 100 mg by mouth twice daily. buPROPion SR (ZYBAN SR; WELLBUTRIN SR) 150 mg 12 hr tablet Take 300 mg by mouth once daily. aspirin, enteric coated (ASPIRIN, ENTERIC COATED) 81 mg EC tablet Take 81 mg by mouth once daily. prasugrel (EFFIENT) 10 mg tab Take 10 mg by mouth once daily. carvedilol (COREG) 6.25 mg tablet Take 6.25 mg by mouth twice daily with meals. 12.5 in the morning 6.25 at night atorvastatin (LIPITOR) 80 mg tablet Take 80 mg by mouth once daily. folic acid 1 mg tablet Take 1 mg by mouth once daily. cholecalciferol, vitamin D3, (VITAMIN D3 ORAL) Take by mouth. metFORMIN (GLUCOPHAGE) 500 mg tablet Take 500 mg by mouth twice daily. coenzyme Q10 (COENZYME Q-10) 100 mg cap capsule 100 mg. Calcium Carb-Magnesium Carb 250-300 mg tab Calcium Carbonate / magnesium carbonate calcium carb-magnesium carb 250 mg-300 mg tablet Active 1 TAB TWICE A DAY December 16, 2017 11:30am 12-16-2017 [facility] ([id number]) hydroCHLOROthiazide (HYDRODIURIL, ESIDRIX) 25 mg tablet 25 mg. vit A-vit D3-vit E-vit K 2,000 unit-2000 unit-1,000 mcg cap Take by mouth. traZODone (DESYREL) 50 mg tablet Take 50 mg by mouth daily at bedtime. Ipratropium [place] (ATROVENT) 0.03 % nasal spray Use 2 Sprays in the nose every 12 hours. vitamin B complex (B COMPLEX 1 ORAL) Take by mouth. esomeprazole (NEXIUM 24HR) 20 mg capsule Take 2 capsules by mouth DAILY (6 AM). SUMAtriptan (IMITREX) 50 mg tablet Take 50 mg by mouth as needed. fexofenadine (HUMBERTO) 180 mg tablet Take 180 mg by mouth twice daily. promethazine (PHENERGAN) 25 mg tablet Take 25 mg by mouth as needed. quinapril (ACCUPRIL) 20 mg tablet Take 20 mg by mouth daily at bedtime. spironolactone (ALDACTONE) 50 mg tablet Take 50 mg by mouth once daily. HYDROcodone-Acetaminophen (VICODIN) 5-300 mg tab Take by mouth as needed. MULTI-VITAMIN ORAL Take by mouth. No current facility-administered medications for this visit. Allergies As of Date: 08/27/2021 Allergen Noted Reaction NECON [NORETHINDRONE-ETHIN ESTRAD*04/25/2014 Hives PENICILLINS 12/31/2010 Hives Fully Assessed 07/09/2021 REVIEW OF SYSTEMS: POSITIVES IN BOLD Constitutional: Denies fever or chills Eyes: Denies change in visual acuity HENT: Denies nasal congestion or sore throat Respiratory: Denies cough or shortness of breath Cardiovascular: Denies chest pain or edema GI: Denies abdominal pain, nausea, vomiting, bloody stools or diarrhea : Denies dysuria Musculoskeletal: Denies back pain or joint pain Integument: Denies rash Neurologic: Denies headache, focal weakness or sensory changes Endocrine: Denies polyuria or polydipsia Lymphatic: Denies swollen glands Psychiatric: Denies depression or anxiety PHYSICAL EXAMINATION: Vital Signs: There were no vitals filed for this visit. There is no height or weight on file to calculate BMI. General appearance: Well appearing, alert, in no acute distress, well-hydrated, well nourished. and Obese Skin: Skin color, texture, turgor normal, no suspicious rashes or lesions Neck: Supple, no adenopathy; thyroid symmetric, normal size, no bruits Abd: obese PELVIC EXAMINATION: Not repeated IMPRESSION: Ms. López is a 41 year old female who presents today with chronic pelvic pain, fibroid uterus, failed medical therapy Patient interested in hysterectomy High surgical risk factors include - Morbid obesity, HTN, S/p CO cardiac stent in place PLAN: Obtain MRI following endometriosis protocol Risks of hysterectomy, benefits, indications and expectations were discussed with the patient in detail. Questions answered. RTC for discussion Written and verbal health teaching given to patient, patient verbalizes understanding and agrees with treatment plan. Medical Decision Making: Problems: Moderate: 1+ chronic illnesses with change Data: Unique test result(s) reviewed: 3+ Unique test(s) ordered: 2 Risk: High: Decision on elective major surgery w/ risk factors Medical Decision Making Level: 4 - Moderate I personally interviewed, confirmed and edited the above information if obtained by others. Dodie Richards MD documented in this encounter [facility] 07-25-2021 Miscellaneous Notes Called patient, left VM that rx for MRI was sent to pharmacy, how soon to take, and to have someone drive her if she takes medication Dean Fernandez RN July 25, 2021 11:02 AM The following approved medication requests have been transmitted electronically. Signed Prescriptions Disp Refills diazePAM (VALIUM) 2 mg tablet 1 tablet 0 Sig: Take 1 tablet by mouth one time only for 1 dose. Take 30-60 minutes prior to procedure. No driving while taking this medication BRUNO Class: C-IV Authorizing Provider: RADHA STORM Pharmacy Information Pharmacy Address [facility] [phone] [place] [address] [facility] website checked and validated. All prescriptions have been APPROPRIATELY filled. No suspicious activity was identified. 07/25/2021 by Radha Storm APRN.KARINA Please call patient, valium Rx sent to take 30-60 minutes prior to MRI. Must have responsible adult drive her to/from procedure if she takes this medication Radha Storm APRN.CNP July 25, 2021 10:57 AM Patient is schedule for an MRI 08/08/2021 Requesting some medication due to being catastrophic appt with Dr Richards 08/27/2021 07/02/2021 Nita Mendes CNP PLAN Pelvic floor physical therapy Baclofen suppository - especially after intercourse, night before PT Relaxation techniques MRI - to evaluate for Adenomyosis and fibroids MIGS consult after MRI Nita Mendes APRN.PATIENT SITTER Carlos López Patient called in stating she has claustrophobia and need something to assist her thru her MRI test coming soon Please contact Patient [phone] Thanks Madisyn Sultana documented in this encounter [facility] 07-24-2021 Note HNO ID: [id number] Author: Gosia Quan PT Service: ? Author Type: Physical Therapist Type: Progress Notes Filed: 07/24/2021 6:35 PM Note Text: Episode Visit Count: 1 Therapist That Will Oversee The Plan Of Care: Gosia Quan PT, DPT Start of Care Date: 07/24/21 Onset Date: 07/25/07 (worse after the of her son) Plan of Care Certification Date: 07/24/21 Next Certification Due Date: 10/16/21 Patient Identified by Name and Date of : Yes REHABILITATION AND SPORTS THERAPY PHYSICAL THERAPY EVALUATION PLAN OF CARE: Assessment: Carlos López presents with chief complaint of pelvic pain with urinary dysfunction (post-void dribble, mild PATRICIA, diversion of stream) that interferes with bladder function;bowel function;altered sexual function . She presents with impairments in coordination, overall function, range of motion, symptom management and tissue tenderness. PROMIS? (Patient-Reported Outcomes Measurement Information System) scores were reviewed and all domains identified as within normal limits. Prognosis for therapy is Good due to: current objective clinical presentation;good support system/ coping skills . Deficits likely due to dietary factors causing irritation to bladder. She will benefit from skilled therapy services to meet the goals established for this plan of care as noted below. Goals for Episode of Care: created on 07/24/21 through 11/27/21 Incontinence: Patient to demonstrate independence with HEP Patient able to cough, sneeze, and laugh without leaking Pelvic Pain: Patient to demonstrate independence in HEP Patient reports painfree intercourse Patient displays decreased muscle spasms in levator and obturator internus to allow for decreased pain levels Patient demonstrates ability to perform diaphragmatic breathing and relaxation to improve coordination with pelvic floor muscles. Patient will be able to decrease muscle resting tone of pelvic floor muscles to allow for decreased pain. Patient displays improved muscle dynamics of pelvic floor including ability to lengthen Patient will decrease pain rating by 2 points to meet minimal clinical important difference for numeric pain rating scale. Patient will verbalize knowledge of bladder irritants and implications for her symptoms. Patient will decrease caffeine consumption to 1 cup per day. Patient Goals: Loosen up the hips, make the pain go away Planned Interventions, Frequency, and Duration: Current Frequency: 1x/week Duration: 12 weeks Total Number of Visits Planned: 12 Planned Treatment Interventions: Therapeutic exercise (96759);Neuromuscular re-education (02288);Manual therapy (91318);Therapeutic activities (99668);Self-custodial management (49289);Patient/Family/Caregiver Education PLAN FOR NEXT VISIT: Review HEP, assess response to eliminating soda, provide downtraining exercises, assess hips Patient demonstrates good understanding of plan of care and treatment. The above goals and plan of care were discussed and agreed upon by patient/family. SUBJECTIVE: Carlos López is a 41 year old female seen today for tight pelvic floor muscles and urinary dysfunction.. She has been having pain and cramping in lower abdomen with irregular bleeding. Bleeding has stopped though. This started several years ago, and then IUD took away symptoms, but when it and was replaced, symptoms came back. Ibuprofen helped some, and heat made pain not as intense. position helps. Currently having discomfort on left side. Previous heart cath/stent Pelvic pain Patient Goals: Loosen up the hips, make the pain go away Functional Limitations: bladder function;bowel function;altered sexual function Intake Information: Prescription present Previous Treatment: Heat?;Ice?;NSAIDs? (Chamomile tea) Pain: Pain Pain Level: 5 Pain Location: Suprapubic Description: Cramping;Sharp Frequency: Intermittent (not every day, but has pain about 75% of the time,) Detailed Pain Score: Yes Worst Pain Level: 8 Average Pain Level: 5 Best Pain Level: 0 PROMIS Scales Higher is Better 12/25/2020 07/23/2021 Phys Func - Score 48 (within normal limits) 47 (within normal limits) Phys Func - Percentile 42 % 38 % Social Roles - Score 52 (within normal limits) 57 (within normal limits) Social Role - Percentile 58 % 76 % GH Physical - Score 47.7 (Good) 47.7 (Good) GH Physical - Percentile 41 % 41 % GH Mental - Score 50.8 (Very Good) 43.5 (Good) GH Mental - Percentile 53 % 26 % Self-Eff Symptom - Score - 48 (Average) Self-Eff Symptom - Percentile - 42 % T-scores: mean of general population = 50. 5 points is clinically meaningfully difference Percentiles provide an indication of how the patient's score ranks in relation to the general population. Higher percentile rankings indicate better function/quality of life. 50th percentile is the average of the general population and in (more content not included)... [facility] 07-24-2021 History of Present illness Narrative Episode Visit Count: 1 Therapist That Will Oversee The Plan Of Care: Gosia Quan PT, DPT Start of Care Date: 07/24/21 Onset Date: 07/25/07 (worse after the of her son) Plan of Care Certification Date: 07/24/21 Next Certification Due Date: 10/16/21 Patient Identified by Name and Date of : Yes REHABILITATION AND SPORTS THERAPY PHYSICAL THERAPY EVALUATION PLAN OF CARE: Assessment: Carlos López presents with chief complaint of pelvic pain with urinary dysfunction (post-void dribble, mild PATRICIA, diversion of stream) that interferes with bladder function;bowel function;altered sexual function . She presents with impairments in coordination, overall function, range of motion, symptom management and tissue tenderness. PROMIS (Patient-Reported Outcomes Measurement Information System) scores were reviewed and all domains identified as within normal limits. Prognosis for therapy is Good due to: current objective clinical presentation;good support system/ coping skills . Deficits likely due to dietary factors causing irritation to bladder. She will benefit from skilled therapy services to meet the goals established for this plan of care as noted below. Goals for Episode of Care: created on 07/24/21 through 11/27/21 Incontinence: Patient to demonstrate independence with HEP Patient able to cough, sneeze, and laugh without leaking Pelvic Pain: Patient to demonstrate independence in HEP Patient reports painfree intercourse Patient displays decreased muscle spasms in levator and obturator internus to allow for decreased pain levels Patient demonstrates ability to perform diaphragmatic breathing and relaxation to improve coordination with pelvic floor muscles. Patient will be able to decrease muscle resting tone of pelvic floor muscles to allow for decreased pain. Patient displays improved muscle dynamics of pelvic floor including ability to lengthen Patient will decrease pain rating by 2 points to meet minimal clinical important difference for numeric pain rating scale. Patient will verbalize knowledge of bladder irritants and implications for her symptoms. Patient will decrease caffeine consumption to 1 cup per day. Patient Goals: Loosen up the hips, make the pain go away Planned Interventions, Frequency, and Duration: Current Frequency: 1x/week Duration: 12 weeks Total Number of Visits Planned: 12 Planned Treatment Interventions: Therapeutic exercise (92953);Neuromuscular re-education (76594);Manual therapy (66029);Therapeutic activities (57986);Self-custodial management (97877);Patient/Family/Caregiver Education PLAN FOR NEXT VISIT: Review HEP, assess response to eliminating soda, provide downtraining exercises, assess hips Patient demonstrates good understanding of plan of care and treatment. The above goals and plan of care were discussed and agreed upon by patient/family. SUBJECTIVE: Carlos López is a 41 year old female seen today for tight pelvic floor muscles and urinary dysfunction.. She has been having pain and cramping in lower abdomen with irregular bleeding. Bleeding has stopped though. This started several years ago, and then IUD took away symptoms, but when it and was replaced, symptoms came back. Ibuprofen helped some, and heat made pain not as intense. position helps. Currently having discomfort on left side. Previous heart cath/stent Pelvic pain Patient Goals: Loosen up the hips, make the pain go away Functional Limitations: bladder function;bowel function;altered sexual function Intake Information: Prescription present Previous Treatment: Heat ;Ice ;NSAIDs (Chamomile tea) Pain: Pain Pain Level: 5 Pain Location: Suprapubic Description: Cramping;Sharp Frequency: Intermittent (not every day, but has pain about 75% of the time,) Detailed Pain Score: Yes Worst Pain Level: 8 Average Pain Level: 5 Best Pain Level: 0 PROMIS Scales Higher is Better 12/25/2020 07/23/2021 Phys Func - Score 48 (within normal limits) 47 (within normal limits) Phys Func - Percentile 42 % 38 % Social Roles - Score 52 (within normal limits) 57 (within normal limits) Social Role - Percentile 58 % 76 % GH Physical - Score 47.7 (Good) 47.7 (Good) GH Physical - Percentile 41 % 41 % GH Mental - Score 50.8 (Very Good) 43.5 (Good) GH Mental - Percentile 53 % 26 % Self-Eff Symptom - Score - 48 (Average) Self-Eff Symptom - Percentile - 42 % T-scores: mean of general population = 50. 5 points is clinically meaningfully difference Percentiles provide an indication of how the patient's score ranks in relation to the general population. Higher percentile rankings indicate better function/quality of life. 50th percentile is the average of the general population and indicates half of respondents had a worse score. Lower is Better 12/25/2020 07/23/2021 Fatigue - Score 48 (within normal limits) 47 (within normal limits) Fatigue - Percentile 58 % 62 % T-scores: mean of general population = 50. 5 points is clinically meaningfully difference Percentiles provide an indication of how the patient's score ranks in relation to the general population. Higher percentile rankings indicate better function/quality of life. 50th percentile is the average of the general population and indicates half of respondents had a worse score. OBJECTIVE MEASURES WITH LEVEL OF FUNCTION: Pelvic Floor Control Method: IUD Pregnancies: 2 ( that did not result in went to 14 weeks) Births: 1 : 1 (Emergency , 3 weeks early, did not labor) Aggravates Pain: Urination (only if she has to hold it for a while; standing up too fast) Alleviates Pain: Medications;Heat/Ice;Lying Pain with penetration: Pain after intercourse Urinary/Bowel History : Urinary History;Bowel History Difficulty starting stream: No slow or intermittent stream: No Incomplete emptying: No Diversion of stream: Yes Stress Incontinence: Cough/sneeze;Laughing (maybe once a month) Post Void Dribble: Yes Urgency: No Nocturia (times per night): 1 Fluid Intake: Water;Tea;Pop/Diet Pop;Juice Water : 8-10 cups Tea : 2 cups iced black tea, daily Juice : Couple times a week, 2-3 cups Pop/Diet Pop : Diet coke 4 cups a day Daytime Voiding Interval: Can go up to 8 hours during the day Difficulty evacuating / Excessive Straining: No Incomplete emptying: No Bowel Movement Frequency: 1/day Bowel Movement Consistency ([place]en) : 3: Like a sausage or snake but with cracks on its surface Bloating / abdominal pain: Yes (just the lower abdominal pain) Fecal incontinence: No Daily Dietary Fiber/ Food Intake: Vegetables, apples with skin, beans, nuts Bowel Aides / Supplements: None Pelvic Floor Muscle Assessment Consent for pelvic assessment/testing and treatment: Patient was educated regarding pelvic floor physical therapy assessment/treatment which may include pelvic floor and girdle muscle assessment externally or internally (vaginal or rectal approach).;Patient verbalized consent for the above treatment approaches today. Patient understands they have control of the treatment and an opportunity to stop treatment at any time. Pelvic Floor Muscle Assessment: Muscle Dynamics Contracton Pressure: Moderate squeeze, felt all the way around finger surface Duration of Contraction: >3 seconds Recruitment of pelvic floor muscles: Coordinated Range of Motion: Decreased Ability to Lengthen pelvic floor: Difficulty at first, but improves with cueing and practice (best with flood gate cue) Paradoxical Contraction: Yes Diaphragmatic Breathing : Good Pelvic Floor Manual Assessment External Pelvic Region Tenderness/ Hyperactivity - Trunk: Upper abdominals;Suprapubic Upper abdominals: Bilateral (min restrictions in diaphragm, no TTP) Suprapubic: (min-mod tension) Pelvic Floor Tenderness/Hyperactivity: Tested Vaginally in Tested Vaginally in : Supine/hooklying Ischiocavernosus: Bilateral (mod tightness and TTP) Obturator internus: Bilateral (mod tightness and TTP) Pubococcygeus: Bilateral (min-mod tightness) Education: Education Learning Preferences: Demonstration;Explanation;Performance; Printed Materials Barriers: None Learning/educational needs: Health promotion;Lifestyle changes;Home exercise program;Plan of Care;Posture;Body Mechanics Education Provided: Yes, see treatment interventions for education provided Education Provided To: Patient Education Mode/Type: Explanation/Discussion;Demonstration;L iterature/Printed Materials;Performance Response to Education/Teach Back: States/Identifies;Return Demonstration;Requires Review/Additional Education TREATMENT: PT Treatment Interventions: Self-Long-Term Management;Neuromuscular Re-Education Evaluation Evaluation Neuromuscular Re-Education: 1: Educated patient on reciprocal relationship between respiratory diaphragm and pelvic floor, pump for the intestines, role in pressure management 2: *Diaphragmatic breathing 3: *Reverse kegels/PFM lengthening with breathing coordination Skilled Intervention: Skilled judgment used to assess appropriate program for coordination activity. Provided written instruction for home program to facilitate proper performance and compliance. Correct performance of home program was facilitated with verbal, visual and tactile cueing. Patient education as noted. Self-Long-Term Management: 1: Educated patient on normal voiding interval of 2-4 hours, also educated on avoiding just in case voiding. 2: *Educated patient on bladder irritants. Recommended eliminating soda 3: *Educated patient briefly on fiber types, amounts, roles etc Skilled Intervention: Skilled judgment in the selection of proper modification for activity of daily living/home management based on clinical presentation, deficits, and needs. Educated the patient regarding recommendations and provided written instruction to facilitate compliance. Provided written instruction for activities of daily living techniques to facilitate proper performance and compliance. Reviewed patient specific diagnosis in relation to activities of daily living/home management. Billing * Evaluation Low Complexity: 1 Unit Neuromuscular Re-Education Treatment Minutes: 10 Self-Care/Home Management Treatment Minutes: 14 Total Treatment Time Minutes (timed/untimed): 60 Gosia Quan PT documented in this encounter [facility] 07-05-2021 Note HNO ID: [id number] Author: Darya Cordon, DO Service: ? Author Type: Physician Type: Progress Notes Filed: 07/09/2021 11:17 AM Note Text: Follow Up Visit Chief Complaint Carlos López is a 41 year old female who presents today for follow up office visit. Patient presents with: Right Wrist - Follow Up, Pain History of Present Illness PAIN EVALUATION 07/05/2021 1301 Pain Level: 3 Pain Location: Elbow-Right Description: Aching;Dull;Burning;Numbness;Tingling Duration Amount of Time: ? ongoing Frequency: Continuous Intervention/Comfort measure: Reposition;Relaxation;Medication HPI: Carlos López is a 41 year old female for a follow up visit right elbow pain. Patient is here to go over EMG results. Still experiencing an increase of burning/numbness sensation from elbow to thumb. Pain history is noted as above. Is there any overall improvement in your condition? No Any new injury, since being seen last: No REVIEW OF SYMPTOMS: Patient did not have, and does not currently have, any weight loss, malaise, fever, chills, headache, chest pain, chest pressure, palpitations, cough, shortness of breath, orthopnea, paroxsymal nocturnal dyspnea, nausea, vomiting, diarrhea, constipation, melena, hematochezia, urinary difficulties, prolonged bleeding, easily bruising, heat or cold intolerance, new onset joint pain or swelling, new onset extremity weakness or numbness, new onset auditory or visual disturbances, lightheadedness, dizziness, partial loss of consciousness or full loss of consciousness. Current Outpatient Medications Medication Sig - rimegepant (NURTEC ODT) 75 mg disintegrating tablet Take 75 mg by mouth once daily as needed. - baclofen vaginal suppository 10 mg (CPD) Use 1 Suppository vaginally daily at bedtime. Unwrap and insert one suppository as directed. - Surgical Lubricant Jelly gel For MRI Female Pelvis, MRI department to provide. Administer intra-vaginal Surgilube immediately prior the MRI procedure (total amount to patient toleranace). - levonorgestrel (MIRENA) 20 mcg/24 hours (7 yrs) 52 mg IUD 1 Each by INTRAUTERINE route as directed. - lamoTRIgine (LAMICTAL) 100 mg tablet Take 100 mg by mouth twice daily. - buPROPion SR (ZYBAN SR; WELLBUTRIN SR) 150 mg 12 hr tablet Take 300 mg by mouth once daily. - aspirin, enteric coated (ASPIRIN, ENTERIC COATED) 81 mg EC tablet Take 81 mg by mouth once daily. - prasugrel (EFFIENT) 10 mg tab Take 10 mg by mouth once daily. - carvedilol (COREG) 6.25 mg tablet Take 6.25 mg by mouth twice daily with meals. 12.5 in the morning 6.25 at night - atorvastatin (LIPITOR) 80 mg tablet Take 80 mg by mouth once daily. - folic acid 1 mg tablet Take 1 mg by mouth once daily. - cholecalciferol, vitamin D3, (VITAMIN D3 ORAL) Take by mouth. - metFORMIN (GLUCOPHAGE) 500 mg tablet Take 500 mg by mouth twice daily. - coenzyme Q10 (COENZYME Q-10) 100 mg cap capsule 100 mg. - Calcium Carb-Magnesium Carb 250-300 mg tab Calcium Carbonate / magnesium carbonate calcium carb-magnesium carb 250 mg-300 mg tablet Active 1 TAB TWICE A DAY December 16, 2017 11:30am 12-16-2017 [facility] ([id number]) - hydroCHLOROthiazide (HYDRODIURIL, ESIDRIX) 25 mg tablet 25 mg. - vit A-vit D3-vit E-vit K 2,000 unit-2000 unit-1,000 mcg cap Take by mouth. - traZODone (DESYREL) 50 mg tablet Take 50 mg by mouth daily at bedtime. - Ipratropium [place] (ATROVENT) 0.03 % nasal spray Use 2 Sprays in the nose every 12 hours. - vitamin B complex (B COMPLEX 1 ORAL) Take by mouth. - esomeprazole (NEXIUM 24HR) 20 mg capsule Take 2 capsules by mouth DAILY (6 AM). - SUMAtriptan (IMITREX) 50 mg tablet Take 50 mg by mouth as needed. - fexofenadine (HUMBERTO) 180 mg tablet Take 180 mg by mouth twice daily. - promethazine (PHENERGAN) 25 mg tablet Take 25 mg by mouth as needed. - quinapril (ACCUPRIL) 20 mg tablet Take 20 mg by mouth daily at bedtime. - ondansetron (ZOFRAN) 8 mg tablet Take 8 mg by mouth every 8 hours as needed. - spironolactone (ALDACTONE) 50 mg tablet Take 50 mg by mouth once daily. - HYDROcodone-Acetaminophen (VICODIN) 5-300 mg tab Take by mouth as needed. - MULTI-VITAMIN ORAL Take by mouth. - apremilast (OTEZLA) 30 mg tablet Take 30 mg by mouth twice daily. (Patient not taking: Reported on 07/05/2021 ) - hydrALAZINE (APRESOLINE) 25 mg tablet 25 mg. - amLODIPine (NORVASC) 5 mg tablet Take 5 mg by mouth daily at bedtime. - bisoprolol (ZEBETA) 10 mg tablet Take 10 mg by mouth daily at bedtime. - meclizine 12.5 mg ORAL Tab Take 1 tablet by mouth every 6 hours as needed (dizziness). (Patient taking differently: Take 25 mg by mouth three times daily as needed (dizziness). ) No current facility-administered medications for this visit. Physical Exam Vitals: [facility] 07/11/2015 Psych: Pleasant, good affect and mood General Appearance: Well appearing, alert, in no acute distress, well-hydrated, well nourished.. (more content not included)... [facility] 07-05-2021 History of Present illness Narrative Images from the original note were not included. Follow Up Visit Chief Complaint Carlos López is a 41 year old female who presents today for follow up office visit. Patient presents with: Right Wrist - Follow Up, Pain History of Present Illness PAIN EVALUATION 07/05/2021 1301 Pain Level: 3 Pain Location: Elbow-Right Description: Aching;Dull;Burning;Numbness;Tingling Duration Amount of Time: ongoing Frequency: Continuous Intervention/Comfort measure: Reposition;Relaxation;Medication HPI: Carlos López is a 41 year old female for a follow up visit right elbow pain. Patient is here to go over EMG results. Still experiencing an increase of burning/numbness sensation from elbow to thumb. Pain history is noted as above. Is there any overall improvement in your condition? No Any new injury, since being seen last: No REVIEW OF SYMPTOMS: Patient did not have, and does not currently have, any weight loss, malaise, fever, chills, headache, chest pain, chest pressure, palpitations, cough, shortness of breath, orthopnea, paroxsymal nocturnal dyspnea, nausea, vomiting, diarrhea, constipation, melena, hematochezia, urinary difficulties, prolonged bleeding, easily bruising, heat or cold intolerance, new onset joint pain or swelling, new onset extremity weakness or numbness, new onset auditory or visual disturbances, lightheadedness, dizziness, partial loss of consciousness or full loss of consciousness. Current Outpatient Medications Medication Sig rimegepant (NURTEC ODT) 75 mg disintegrating tablet Take 75 mg by mouth once daily as needed. baclofen vaginal suppository 10 mg (CPD) Use 1 Suppository vaginally daily at bedtime. Unwrap and insert one suppository as directed. Surgical Lubricant Jelly gel For MRI Female Pelvis, MRI department to provide. Administer intra-vaginal Surgilube immediately prior the MRI procedure (total amount to patient toleranace). levonorgestrel (MIRENA) 20 mcg/24 hours (7 yrs) 52 mg IUD 1 Each by INTRAUTERINE route as directed. lamoTRIgine (LAMICTAL) 100 mg tablet Take 100 mg by mouth twice daily. buPROPion SR (ZYBAN SR; WELLBUTRIN SR) 150 mg 12 hr tablet Take 300 mg by mouth once daily. aspirin, enteric coated (ASPIRIN, ENTERIC COATED) 81 mg EC tablet Take 81 mg by mouth once daily. prasugrel (EFFIENT) 10 mg tab Take 10 mg by mouth once daily. carvedilol (COREG) 6.25 mg tablet Take 6.25 mg by mouth twice daily with meals. 12.5 in the morning 6.25 at night atorvastatin (LIPITOR) 80 mg tablet Take 80 mg by mouth once daily. folic acid 1 mg tablet Take 1 mg by mouth once daily. cholecalciferol, vitamin D3, (VITAMIN D3 ORAL) Take by mouth. metFORMIN (GLUCOPHAGE) 500 mg tablet Take 500 mg by mouth twice daily. coenzyme Q10 (COENZYME Q-10) 100 mg cap capsule 100 mg. Calcium Carb-Magnesium Carb 250-300 mg tab Calcium Carbonate / magnesium carbonate calcium carb-magnesium carb 250 mg-300 mg tablet Active 1 TAB TWICE A DAY December 16, 2017 11:30am 12-16-2017 [facility] ([id number]) hydroCHLOROthiazide (HYDRODIURIL, ESIDRIX) 25 mg tablet 25 mg. vit A-vit D3-vit E-vit K 2,000 unit-2000 unit-1,000 mcg cap Take by mouth. traZODone (DESYREL) 50 mg tablet Take 50 mg by mouth daily at bedtime. Ipratropium [place] (ATROVENT) 0.03 % nasal spray Use 2 Sprays in the nose every 12 hours. vitamin B complex (B COMPLEX 1 ORAL) Take by mouth. esomeprazole (NEXIUM 24HR) 20 mg capsule Take 2 capsules by mouth DAILY (6 AM). SUMAtriptan (IMITREX) 50 mg tablet Take 50 mg by mouth as needed. fexofenadine (HUMBERTO) 180 mg tablet Take 180 mg by mouth twice daily. promethazine (PHENERGAN) 25 mg tablet Take 25 mg by mouth as needed. quinapril (ACCUPRIL) 20 mg tablet Take 20 mg by mouth daily at bedtime. ondansetron (ZOFRAN) 8 mg tablet Take 8 mg by mouth every 8 hours as needed. spironolactone (ALDACTONE) 50 mg tablet Take 50 mg by mouth once daily. HYDROcodone-Acetaminophen (VICODIN) 5-300 mg tab Take by mouth as needed. MULTI-VITAMIN ORAL Take by mouth. apremilast (OTEZLA) 30 mg tablet Take 30 mg by mouth twice daily. (Patient not taking: Reported on 07/05/2021 ) hydrALAZINE (APRESOLINE) 25 mg tablet 25 mg. amLODIPine (NORVASC) 5 mg tablet Take 5 mg by mouth daily at bedtime. bisoprolol (ZEBETA) 10 mg tablet Take 10 mg by mouth daily at bedtime. meclizine 12.5 mg ORAL Tab Take 1 tablet by mouth every 6 hours as needed (dizziness). (Patient taking differently: Take 25 mg by mouth three times daily as needed (dizziness). ) No current facility-administered medications for this visit. Physical Exam Vitals: [facility] 07/11/2015 Psych: Pleasant, good affect and mood General Appearance: Well appearing, alert, in no acute distress, well-hydrated, well nourished.. Skin: Skin color, texture, turgor normal, no suspicious rashes or lesions. Peripheral Pulses: Normal. Neurologic: Gait normal. Reflexes normal and symmetric. Sensation grossly intact.. Lymph Nodes: No cervical lymphadenopathy, No supraclavicular lymphadenopathy, No axillary lymphadenopathy. and No inguinal lymphadenopathy.. Respiratory: No recent pulmonary infection, hemoptysis, chronic cough, or shortness of breath at rest Rheumatologic: Joint deformities: Right elbow pain Right Hand Exam Right hand exam is normal. Tenderness The patient is experiencing no tenderness. Range of Motion The patient has normal right wrist ROM. Wrist Extension: normal Flexion: normal Pronation: normal Supination: normal Muscle Strength The patient has normal right wrist strength. Tests Phalen s Sign: negative Tinel's sign (median nerve): negative Charlie's test: negative Other Erythema: absent Sensation: normal Pulse: present Comments: B/l med/uln/rad/ax nerves intact Left Hand Exam Left hand exam is normal. Tenderness The patient is experiencing no tenderness. Range of Motion The patient has normal left wrist ROM. Wrist Extension: normal Flexion: normal Pronation: normal Supination: normal Muscle Strength The patient has normal left wrist strength. Tests Phalen s Sign: negative Tinel's sign (median nerve): negative Charlie's test: negative Other Erythema: absent Sensation: normal Pulse: present Assessment and Plan Radiographs: I have independently reviewed films and my findings are the same. and I have reviewed the images with the patient and family. Impression: Encounter Diagnosis ICD-10-CM 1. Carpal tunnel syndrome of right wrist G56.01 H/o b/l ctr years ago Will recommend cock up wrist brace No injections at this time At night wear towel around elbow B complex vitamin Night towel around elbow with loose rubber bands Antiinflammatories as needed Rest Sleeve brace prn If not improving, return for further treatment injections- for mild carpal tunnel , but with history of release many years ago Today, in detail, through a thorough evaluation, we discussed possible etiologies of pain and our plans for further diagnostic and therapeutic interventions. We discussed strategies for decreasing pain and improving strength, stability and motion. Patient's questions were answered in detailed. Patient verbalizes understanding and agrees with the treatment plan as discussed. documented in this encounter [facility] 07-02-2021 Miscellaneous Notes Patient called back, declined VV but accepted in person visit this Thursday. LVM and sent [facility] to set up a VV with Dr. Diaz to go over EMG results. Thank you Telehealth visit please :) Thanks so much!!!! Darya Cordon DO Pt calling (not very nice on VM) for EMG results from 06/18/21 Do you want her schedule a VV on a Thursday or make an in person appt? documented in this encounter [facility] 07-02-2021 Note HNO ID: [id number] Author: Nita Mendes APRN.KARINA Service: ? Author Type: Nurse Practitioner Type: Progress Notes Filed: 07/02/2021 11:39 PM Note Text: CONSULT: [facility] SERVICE DATE: July 01, 2021 Referring Provider: Lilly Cornejo, [facility], Nimesh ? Figueroa Gibson MD, MD ? Single. Lives with my son. Feels safe in home. ? 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 Patient Goal: I don't know. To talk options concerning pain. My Mechanical Laboratory Technician told me its either hysterectomy or pelvic pain clinic What do you think is causing your pain? My uterus Is there an event you associate with the onset of your pain? Yes, puberty, more recently, IUD Have you had pain in your pelvis or lower abdomen for greater than 6 months: Yes, 30+ years ? First IUD had no periods after 6 months. Then at 5 years had it replaced and then she was having so much abnormal bleeding and cramping. Removed within 6 months because it was crooked. The most recent IUD, still having cramping. Only spotting this month. Cramps are awful. Having to drive bent over sometimes. Usually with bleeding no precurser. Pain usually on left lower quandrant. Can go down leg and into hip With cramps, sometimes has a tinge and then get severe. Present several times a week. Made with orgasm, standing up too fast Made better with heat, bending over, position Never Pelvic floor physical therapy Urinary - Nocturia x1. Mornings has some urgency, maybe incontinence GI - Nausea. Upper endoscopy a few years ago. On Nexium but still has nausea. No constipation Gird[place]ree - orgasm cause cramps. Orgasm used to relieve pain. ? Csection x1, miscarriage No physical, sexual abuse No trauma, falls, car accident. Hx of ovarian cyst. Large cyst at age [age] - OCP got rid of it. On and off OCP since. Has high BP, side effects. Nuva ring - caused a lot of irritation. Depo provera - heavy bleeding, anemic. Laparoscopy in 2012 - was told they removed ovary. Reviewed op report - no oopherectomy but did remove 8 cm paratubal cyst, scar tissue Location: Pelvis: bilateral Quality: Pain: stabbing, sharp, cramping and aching Severity: Moderate: 4-7 at the least, and Moderate: 4-7 at the most Radiation: pelvis bilateral ? Aggravating factors: sitting, lifting, physical activity, sex, full bladder, urination and ovulation Alleviating factors: rest, lying down, bowel movement, urination, relaxation and heating pad ? Diagnoses related to pelvic pain: none Interventions tried for pain: laparoscopic surgery 2011 ? PAST MEDICAL HISTORY PAST MEDICAL HISTORY Diagnosis Date - Heart attack (HCC) 07/07/2020 - History of heavy periods ? - HTN (hypertension) ? - Migraines ? - NISHA on CPAP ? - Snoring ? ? ? PAST SURGICAL HISTORY PAST SURGICAL HISTORY Procedure Laterality Date - DANDC, DIAG AND/OR THERAPEUTIC ? 04/05/2020 ? hysteroscopy, DANDC, polypectomy, IUD removal and reinsertion - EGD W/O OR W/BRUSH/WASH ? 04/16/2018 ? EGD - ELBOW SURGERY HX Left 2016 - ELBOW SURGERY HX Right ? ? 02/2020 - INSERTION OF IUD ? 05/23/2014 - IR RT HEART CATH ? 07/07/2020 ? 1 stent placed - LAP, SURG ENTEROLYSIS ? 10/16/2011 ? adhesions - RTG - PAST SURGICAL HISTORY OF ? 2006 ? - PAST SURGICAL HISTORY OF ? 2003 ? bilat carpal tunnel - PAST SURGICAL HISTORY OF ? ? ? D7C - PAST SURGICAL HISTORY OF ? 10/16/2011 ? laproscopic ovary cystectomy- JV - UNSPECIFIED ORAL SURGERY PROCEDURE, BY REPORT ? 07/03/2015 ? ? OB History T1 L1 SAB1 IAB0 Ectopic0 Multiple0 Live Births0 ? Comment: 1 section DANDC for missed ab ? Menstrual Symptoms: Painful, Heavy flow, Clots, Missing school/work and periods started at 11 and became painful at age 13. LMP 22. Irregular cycles, flow lasting 6+ days. Taking hormonal medication for period regulation, heavy abnormal bleeding Menstrual regulation tried: IUD ? Gird[place]ree: sexually active FSFI6: 23 (<19 can indicate FSD) ? Urinary Symptoms: urgency PUF: 13 (20+ can indicate probable Interstitial Cystitis) ? GI Symptoms: nausea, rectal bleeding or blood in your stool and frequent diarrhea ? FAMILY HISTORY FAMILY HISTORY Problem Relation Age of Onset - Allergies Mother ? - Skin Cancer Mother ? - Diabetes Mother ? - Hypertension Father ? - Heart Father ? - Skin Cancer Father ? - other (bladder cancer) Father ? - Hypertension Sister ? IBS Depression ? ALLERGIES ALLERGIES Allergen Reactions - Necon [Norethindron* Hives - Penicillins Hives ? ? Current Outpatient Medications on File Prior to Visit Medication Sig - apremilast (OTEZLA) 30 mg tablet Take 30 mg by mouth twice daily. - levonorgestrel (MIRENA) 20 mcg/24 hours (7 yrs) 52 mg IUD 1 Each by INTRAUTERINE route as directed. - lamoTRIgine (LAMICTAL) 100 mg tablet Take 100 mg by mouth twice daily. - buPROPion SR (ZY (more content not included)... [facility] 07-02-2021 Instructions Nita Mendes APRN.KARINA - 07/02/2021 10:22 AM EDT Plan: Pelvic floor physical therapy Baclofen suppository - especially after intercourse, night before PT Relaxation techniques MRI - to evaluate for Adenomyosis and fibroids MIGS consult after MRI Nita Mendes APRN.PATIENT SITTER Relaxation techniques for pain flares: Heating pads Stretching Hot bath (can add Epsom salts or soothing scents (caution if you have been diagnosed with vulvodynia in the past) Non-narcotic pain medications: Tylenol and Ibuprofen alternating Muscle relaxers*: Tizanidine, Flexeril, Baclofen suppositories, Valium suppositories Mindfulness/meditation/relaxation techniques Massage therapy Yoga Distraction Exercise, slow walks * May cause drowsiness, so caution with driving, performing tasks that require full attention Caution do not keep pad or bottle on >30 minutes, and do not heat too hot for risk of kc and/or temporary or permanent skin changes. [email or web address].com Pelvic Floor Dysfunction (PFD) The pelvic floor is made up of the bony pelvis (hip bones) together with different layers of muscles, fascia, and ligaments. The pelvic floor acts like a hammock to support the pelvic organs including the uterus, bladder, and rectum. If the muscles become overactive, strained or uncoordinated, they may cause pain in the pelvis. This pain may lead the muscles to not contract, relax, or work together. This in turn can lead to shifting of your bony pelvis with subsequent pain in your lower back, hips, knees, or ankles. Symptoms Symptoms related to PFD may include pain of the lower abdomen and pelvic region, a sensation of vaginal heaviness or pressure, pain with vaginal penetration, and low back pain that cannot be explained by other reasons. PFD can also impact bladder and bowel function. Bladder symptoms may include urinary urgency and frequency, feeling of incomplete emptying, intermittent urinary stream or the need to strain, and urinary incontinence (leakage). Bowel symptoms may include constipation, pain with bowel movements, frequent bowel movements and fecal incontinence (leakage of stool.) Symptoms of PFD tend to develop slowly and worsen over time. Main causes of PFD While the cause of PFD is not always known contributing factors may include , vaginal delivery, pelvic trauma, pelvic surgery and obesity. PFD is also frequently found alongside pelvic diseases such as endometriosis, bladder pain syndrome, irritable bowel syndrome and vulvar pain. PFD may also arise due to repeated straining (such as with bowel movements) leading to poor coordination of the pelvic floor muscles. The pelvic floor muscles may also be involved in compensating for other musculoskeletal conditions, such as low back or hip pain. Treatment Physical Therapy is performed by a physical therapist who has been specifically trained in pelvic health. The physical therapist will perform a complete initial evaluation and, together with the patient, will establish goals and develop an individualized treatment plan. The treatment plan may include patient education, manual therapy, therapeutic exercise, postural training, breathing exercises, neuromuscular reeducation (teaching how to improve pelvic floor muscle control including relaxation, contraction, and coordination), biofeedback, and home exercise program. Modalities such as cold laser, interferential current, electrical stimulation, ultrasound, heat, and ice may also be used. Medications in the form of muscle relaxants or nerve pain medicines can be given to relax the pelvic muscles, desensitize the nervous system, and help the patient tolerate physical therapy. Trigger point injections are injections placed directly in the dysfunctional muscles to control pain, treat inflammation, and reduce spasm. Injections may include a numbing agent, a steroid, or even botulinum toxin. PFD often requires a combination of treatments in addition to physical therapy. In patients with chronic pain, other interventions such as stress control, lifestyle modification, cognitive behavioral therapy (CBT), relationship therapy, meditation, yoga, and acupuncture may be used to reduce pain and improve function. This information is from the international pelvic pain society (pelvicpain.org) documented in this encounter [facility] 07-02-2021 History of Present illness Narrative CONSULT: [facility] SERVICE DATE: July 01, 2021 Referring Provider: Lilly Cornejo, [facility], Nimesh Gibson MD, MD Single. Lives with my son. Feels safe in home. 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 To talk options concerning pain. My Mechanical Laboratory Technician told me its either hysterectomy or pelvic pain clinic What do you think is causing your pain? My uterus Is there an event you associate with the onset of your pain? Yes, puberty, more recently, IUD Have you had pain in your pelvis or lower abdomen for greater than 6 months: Yes, 30+ years First IUD had no periods after 6 months. Then at 5 years had it replaced and then she was having so much abnormal bleeding and cramping. Removed within 6 months because it was crooked. The most recent IUD, still having cramping. Only spotting this month. Cramps are awful. Having to drive bent over sometimes. Usually with bleeding no precurser. Pain usually on left lower quandrant. Can go down leg and into hip With cramps, sometimes has a tinge and then get severe. Present several times a week. Made with orgasm, standing up too fast Made better with heat, bending over, position Never Pelvic floor physical therapy Urinary - Nocturia x1. Mornings has some urgency, maybe incontinence GI - Nausea. Upper endoscopy a few years ago. On Nexium but still has nausea. No constipation G[place] - orgasm cause cramps. Orgasm used to relieve pain. Csection x1, miscarriage No physical, sexual abuse No trauma, falls, car accident. Hx of ovarian cyst. Large cyst at age [age] - OCP got rid of it. On and off OCP since. Has high BP, side effects. Nuva ring - caused a lot of irritation. Depo provera - heavy bleeding, anemic. Laparoscopy in 2012 - was told they removed ovary. Reviewed op report - no oopherectomy but did remove 8 cm paratubal cyst, scar tissue Location: Pelvis: bilateral Quality: Pain: stabbing, sharp, cramping and aching Severity: Moderate: 4-7 at the least, and Moderate: 4-7 at the most Radiation: pelvis bilateral Aggravating factors: sitting, lifting, physical activity, sex, full bladder, urination and ovulation Alleviating factors: rest, lying down, bowel movement, urination, relaxation and heating pad Diagnoses related to pelvic pain: none Interventions tried for pain: laparoscopic surgery 2011 PAST MEDICAL HISTORY PAST MEDICAL HISTORY Diagnosis Date Heart attack (HCC) 07/07/2020 History of heavy periods HTN (hypertension) Migraines NISHA on CPAP Snoring PAST SURGICAL HISTORY PAST SURGICAL HISTORY Procedure Laterality Date D&C, DIAG AND/OR THERAPEUTIC 04/05/2020 hysteroscopy, D&C, polypectomy, IUD removal and reinsertion EGD W/O OR W/BRUSH/WASH 04/16/2018 EGD ELBOW SURGERY HX Left 2016 ELBOW SURGERY HX Right 02/2020 INSERTION OF IUD 05/23/2014 IR RT HEART CATH 07/07/2020 1 stent placed LAP, SURG ENTEROLYSIS 10/16/2011 adhesions - RTG PAST SURGICAL HISTORY OF 2006 PAST SURGICAL HISTORY OF 2003 bilat carpal tunnel PAST SURGICAL HISTORY OF D7C PAST SURGICAL HISTORY OF 10/16/2011 laproscopic ovary cystectomy- JV UNSPECIFIED ORAL SURGERY PROCEDURE, BY REPORT 07/03/2015 OB History T1 L1 SAB1 IAB0 Ectopic0 Multiple0 Live Births0 Comment: 1 section D&C for missed ab Menstrual Symptoms: Painful, Heavy flow, Clots, Missing school/work and periods started at 11 and became painful at age 13. LMP 05/21/21. Irregular cycles, flow lasting 6+ days. Taking hormonal medication for period regulation, heavy abnormal bleeding Menstrual regulation tried: IUD Gird[place]ree: sexually active FSFI6: 23 (<19 can indicate FSD) Urinary Symptoms: urgency PUF: 13 (20+ can indicate probable Interstitial Cystitis) GI Symptoms: nausea, rectal bleeding or blood in your stool and frequent diarrhea FAMILY HISTORY FAMILY HISTORY Problem Relation Age of Onset Allergies Mother Skin Cancer Mother Diabetes Mother Hypertension Father Heart Father Skin Cancer Father other (bladder cancer) Father Hypertension Sister IBS Depression ALLERGIES ALLERGIES Allergen Reactions Necon [Norethindron* Hives Penicillins Hives Current Outpatient Medications on File Prior to Visit Medication Sig apremilast (OTEZLA) 30 mg tablet Take 30 mg by mouth twice daily. levonorgestrel (MIRENA) 20 mcg/24 hours (7 yrs) 52 mg IUD 1 Each by INTRAUTERINE route as directed. lamoTRIgine (LAMICTAL) 100 mg tablet Take 100 mg by mouth twice daily. buPROPion SR (ZYBAN SR; WELLBUTRIN SR) 150 mg 12 hr tablet Take 300 mg by mouth once daily. aspirin, enteric coated (ASPIRIN, ENTERIC COATED) 81 mg EC tablet Take 81 mg by mouth once daily. prasugrel (EFFIENT) 10 mg tab Take 10 mg by mouth once daily. carvedilol (COREG) 6.25 mg tablet Take 6.25 mg by mouth twice daily with meals. 12.5 in the morning 6.25 at night atorvastatin (LIPITOR) 80 mg tablet Take 80 mg by mouth once daily. folic acid 1 mg tablet Take 1 mg by mouth once daily. cholecalciferol, vitamin D3, (VITAMIN D3 ORAL) Take by mouth. metFORMIN (GLUCOPHAGE) 500 mg tablet Take 500 mg by mouth twice daily. hydrALAZINE (APRESOLINE) 25 mg tablet 25 mg. coenzyme Q10 (COENZYME Q-10) 100 mg cap capsule 100 mg. Calcium Carb-Magnesium Carb 250-300 mg tab Calcium Carbonate / magnesium carbonate calcium carb-magnesium carb 250 mg-300 mg tablet Active 1 TAB TWICE A DAY December 16, 2017 11:30am 12-16-2017 [facility] ([id number]) hydroCHLOROthiazide (HYDRODIURIL, ESIDRIX) 25 mg tablet 25 mg. vit A-vit D3-vit E-vit K 2,000 unit-2000 unit-1,000 mcg cap Take by mouth. traZODone (DESYREL) 50 mg tablet Take 50 mg by mouth daily at bedtime. Ipratropium [place] (ATROVENT) 0.03 % nasal spray Use 2 Sprays in the nose every 12 hours. vitamin B complex (B COMPLEX 1 ORAL) Take by mouth. esomeprazole (NEXIUM 24HR) 20 mg capsule Take 2 capsules by mouth DAILY (6 AM). SUMAtriptan (IMITREX) 50 mg tablet Take 50 mg by mouth as needed. amLODIPine (NORVASC) 5 mg tablet Take 5 mg by mouth daily at bedtime. bisoprolol (ZEBETA) 10 mg tablet Take 10 mg by mouth daily at bedtime. fexofenadine (HUMBERTO) 180 mg tablet Take 180 mg by mouth twice daily. promethazine (PHENERGAN) 25 mg tablet Take 25 mg by mouth as needed. quinapril (ACCUPRIL) 20 mg tablet Take 20 mg by mouth daily at bedtime. baclofen (LIORESAL) 20 mg tablet Take 20 mg by mouth daily at bedtime. ondansetron (ZOFRAN) 8 mg tablet Take 8 mg by mouth every 8 hours as needed. spironolactone (ALDACTONE) 50 mg tablet Take 50 mg by mouth once daily. HYDROcodone-Acetaminophen (VICODIN) 5-300 mg tab Take by mouth as needed. famotidine (PEPCID) 20 mg tablet Take 20 mg by mouth daily at bedtime. MULTI-VITAMIN ORAL Take by mouth. meclizine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 and off since placement. REVIEW OF SYSTEMS: As noted in HPI. PHYSICAL EXAMINATION: BP 124/84 Wt 314 lb 6.4 oz (142.6kg) LMP 07/11/2015 ABDOMEN:soft and non-tender EXTERNAL GENITALIA: Normal genitalia and Bartholins, Urethra, Sken'e normal CERVIX: smooth, no lesions. IUD strings visible. IMPRESSION/PLAN: IUD correctly positioned. Patient reasonably has been wanting to avoid hysterectomy. Has had pain and irregular bleeding since before surgery, which has now continued. Has been treated for endometritis, BV, and had IUD replaced since polypectomy. Still having pain and irregular bleeding. Discussed cause could be from fibroids and adenomyosis. Discussed possible pedunculated fibroid, and if she has off an on torsion of this fibroid that can cause pain. She understands I cannot guarantee that the fibroids and adenomyosis are causing this pain. Will check again for BV and check IUD placement, but told patient recommend considering hysterectomy at this point. Reviewed other medical management options. Discussed high chance of failure with ablation. Discussed recommendation for consultation with [facility] if she would like to proceed with hysterectomy. She is considering. Will call with results. Denice Cornejo, Medical Decision Making: Problems: Low: Stable chronic illness Risk: Moderate: Moderate risk from testing/treatment Medical Decision Making Level: 3 - Low [facility] 12-27-2020 Note HNO ID: [id number] Author: Heather Vyas, OT/L Service: ? Author Type: Occupational Therapist Type: Progress Notes Filed: 12/27/2020 5:38 PM Note Text: The patient did not show up for this appointment. [facility] 12-26-2020 Note HNO ID: [id number] Author: Darya Cordon DO Service: ? Author Type: Physician Type: Progress Notes Filed: 12/26/2020 11:54 AM Note Text: Follow Up Visit Chief Complaint Carlos López is a 40 year old female who presents today for follow up office visit. Patient presents with: Right Hand - Follow Up, Pain History of Present Illness PAIN EVALUATION 12/26/2020 1140 Pain Level: 3 Pain Location: Hand-Right Description: Aching;Sore;Dull Duration Amount of Time: ? Ongoing Frequency: Intermittent Intervention/Comfort measure: Reposition;Relaxation;Other: See comment;Medication HPI: Carlos López is a 40 year old female for a follow up visit for right hand pain. Pain history is noted as above. Has been on otezlia for psoriasis and has been on it for 10 days with limited relief, but may take a month for resolution of symptoms. No new complaints today. Denies calf pain, numbness, tingling, fever, chills or other constitutional symptoms. Is there any overall improvement in your condition? Yes, Any new injury, since being seen last: No REVIEW OF SYMPTOMS: Patient did not have, and does not currently have, any weight loss, malaise, fever, chills, headache, chest pain, chest pressure, palpitations, cough, shortness of breath, orthopnea, paroxsymal nocturnal dyspnea, nausea, vomiting, diarrhea, constipation, melena, hematochezia, urinary difficulties, prolonged bleeding, easily bruising, heat or cold intolerance, new onset joint pain or swelling, new onset extremity weakness or numbness, new onset auditory or visual disturbances, lightheadedness, dizziness, partial loss of consciousness or full loss of consciousness. Current Outpatient Medications Medication Sig - apremilast (OTEZLA) 30 mg tablet Take 30 mg by mouth twice daily. - levonorgestrel (MIRENA) 20 mcg/24 hours (7 yrs) 52 mg IUD 1 Each by INTRAUTERINE route as directed. - lamoTRIgine (LAMICTAL) 100 mg tablet Take 100 mg by mouth twice daily. - buPROPion SR (ZYBAN SR; WELLBUTRIN SR) 150 mg 12 hr tablet Take 300 mg by mouth once daily. - aspirin, enteric coated (ASPIRIN, ENTERIC COATED) 81 mg EC tablet Take 81 mg by mouth once daily. - prasugrel (EFFIENT) 10 mg tab Take 10 mg by mouth once daily. - carvedilol (COREG) 6.25 mg tablet Take 6.25 mg by mouth twice daily with meals. 12.5 in the morning 6.25 at night - atorvastatin (LIPITOR) 80 mg tablet Take 80 mg by mouth once daily. - folic acid 1 mg tablet Take 1 mg by mouth once daily. - cholecalciferol, vitamin D3, (VITAMIN D3 ORAL) Take by mouth. - metFORMIN (GLUCOPHAGE) 500 mg tablet Take 500 mg by mouth twice daily. - hydrALAZINE (APRESOLINE) 25 mg tablet 25 mg. - coenzyme Q10 (COENZYME Q-10) 100 mg cap capsule 100 mg. - Calcium Carb-Magnesium Carb 250-300 mg tab Calcium Carbonate / magnesium carbonate calcium carb-magnesium carb 250 mg-300 mg tablet Active 1 TAB TWICE A DAY December 16, 2017 11:30am 12-16-2017 [facility] ([id number]) - hydroCHLOROthiazide (HYDRODIURIL, ESIDRIX) 25 mg tablet 25 mg. - vit A-vit D3-vit E-vit K 2,000 unit-2000 unit-1,000 mcg cap Take by mouth. - traZODone (DESYREL) 50 mg tablet Take 50 mg by mouth daily at bedtime. - Ipratropium [place] (ATROVENT) 0.03 % nasal spray Use 2 Sprays in the nose every 12 hours. - vitamin B complex (B COMPLEX 1 ORAL) Take by mouth. - esomeprazole (NEXIUM 24HR) 20 mg capsule Take 2 capsules by mouth DAILY (6 AM). - SUMAtriptan (IMITREX) 50 mg tablet Take 50 mg by mouth as needed. - amLODIPine (NORVASC) 5 mg tablet Take 5 mg by mouth daily at bedtime. - bisoprolol (ZEBETA) 10 mg tablet Take 10 mg by mouth daily at bedtime. - fexofenadine (HUMBERTO) 180 mg tablet Take 180 mg by mouth twice daily. - promethazine (PHENERGAN) 25 mg tablet Take 25 mg by mouth as needed. - quinapril (ACCUPRIL) 20 mg tablet Take 20 mg by mouth daily at bedtime. - baclofen (LIORESAL) 20 mg tablet Take 20 mg by mouth daily at bedtime. - ondansetron (ZOFRAN) 8 mg tablet Take 8 mg by mouth every 8 hours as needed. - spironolactone (ALDACTONE) 50 mg tablet Take 50 mg by mouth once daily. - HYDROcodone-Acetaminophen (VICODIN) 5-300 mg tab Take by mouth as needed. - famotidine (PEPCID) 20 mg tablet Take 20 mg by mouth daily at bedtime. - MULTI-VITAMIN ORAL Take by mouth. - meclizine 12.5 mg ORAL Tab Take 1 tablet by mouth every 6 hours as needed (dizziness). (Patient taking differently: Take 25 mg by mouth three times daily as needed (dizziness). ) No current facility-administered medications for this visit. Physical Exam Vitals: [facility] 07/11/2015 Psych: Pleasant, good affect and mood General Appearance: Well appearing, alert, in no acute distress, well-hydrated, well nourished.. Skin: Skin color, texture, turgor normal, no suspicious rashes or lesions. Peripheral Pulses: Normal. Neurologic: Gait normal. Reflexes normal and symmetric. Sensation grossly intact.. Lymp (more content not included)... [facility] 12-12-2020 Note HNO ID: [id number] Author: Denice Cornejo MD Service: ? Author Type: Physician Type: Progress Notes Filed: 12/12/2020 9:34 AM Note Text: Marycruz presents for removal of IUD due to Malpositioned. UNIVERSAL PROTOCOL / SAFETY CHECKLIST Procedure to be Performed: IUD Removal Sign In: A Moment of CARE was completed. Personnel directly involved with the procedure wore the appropriate PPE (Personal Protective Equipment). Patient/Surrogate Stated/Verified: PATIENT VERIFIED(optional for EMERGENT procedures): Patient name, Date of , Relevant allergies and The intended procedure Time Out Communication: Intended patient and procedure match the source documents. Consent documented and matches the intended procedure. Sign Out: SIGN OUT (optional for EMERGENT procedures): No specimen collected. Post-procedure follow-up management communicated and Plan of Care Visit completed when applicable. PROCEDURE: Speculum placed in vagina, IUD string visualized and grasped with ring forceps. ASSESSMENT/PLAN: IUD removed without difficulty, intact, and patient tolerated procedure well. Contraception plans: Mirena IUD DO Marycruz Ríos presents today for IUD insertion for contraception, dysmenorrhea, menstrual dysfunction. Patient's last menstrual period was 07/11/2015 (exact date). GC/chlamydia: Negative on 09/03/20 test: n/a Side effects including irregular bleeding were discussed with the patient. The patient understands that it should be removed in 6 years or sooner if the patiient desires a . IUD source: office provided IUD lot #: [id number] Exp date: 03/2023 UNIVERSAL PROTOCOL / SAFETY CHECKLIST Procedure to be Performed: Mirena IUD Insertion Sign In: A Moment of CARE was completed. Personnel directly involved with the procedure wore the appropriate PPE (Personal Protective Equipment). Patient/Surrogate Stated/Verified: PATIENT VERIFIED(optional for EMERGENT procedures): Patient name, Date of , Relevant allergies and The intended procedure Time Out Communication: Intended patient and procedure match the source documents. Consent documented and matches the intended procedure. Sign Out: SIGN OUT (optional for EMERGENT procedures): Post-procedure follow-up management communicated and Plan of Care Visit completed when applicable. The uterus sounded to 9 cm and the uterus is Anteverted.. After prepping the cervix with betadine and using sterile technique, the Mirena IUD was inserted after the cervix was dilated and the string was cut to 2 cm from the external os of the cervix. Patient tolerated procedure well. PLAN: Patient was advised to observe for signs and symptoms of infection including but not limited to fever, malodorous vaginal discharge and/or pain. The patient was told to check the string monthly for accurate placement. Bleeding expectations were reviewed. Follow up in one month. Denice Cornejo DO [facility] 11-26-2020 Note HNO ID: [id number] Author: Denice Cornejo MD Service: ? Author Type: Physician Type: Progress Notes Filed: 11/28/2020 9:08 AM Note Text: Carlos López is a 40 year old female who presents for problem visit - pelvic pain. HPI: Follow up for pelvic pain and DUB with Mirena IUD in place. See prior note for details. Has cramping with standing and activity. It is described as menstrual like cramping. Vaginal bleeding has stopped. Having increased urinary frequency as well. No uriunary urgency, dysuria, leakage. Having regular BM's. PAST MEDICAL HISTORY Diagnosis Date - Heart attack (HCC) 07/07/2020 - History of heavy periods - HTN (hypertension) - Migraines - NISHA on CPAP - Snoring PAST SURGICAL HISTORY Procedure Laterality Date - DANDC, DIAG AND/OR THERAPEUTIC 04/05/2020 hysteroscopy, DANDC, polypectomy, IUD removal and reinsertion - EGD W/O OR W/BRUSH/WASH 04/16/2018 EGD - ELBOW SURGERY HX Left 2016 - ELBOW SURGERY HX Right 02/2020 - INSERTION OF IUD 05/23/2014 - IR RT HEART CATH 07/07/2020 1 stent placed - LAP, SURG ENTEROLYSIS 10/16/2011 adhesions - RTG - PAST SURGICAL HISTORY OF 2006 - PAST SURGICAL HISTORY OF 2003 bilat carpal tunnel - PAST SURGICAL HISTORY OF D7C - PAST SURGICAL HISTORY OF 10/16/2011 laproscopic ovary cystectomy- JV - UNSPECIFIED ORAL SURGERY PROCEDURE, BY REPORT 07/03/2015 FAMILY HISTORY Problem Relation Age of Onset - Allergies Mother - Skin Cancer Mother - Diabetes Mother - Hypertension Father - Heart Father - Skin Cancer Father - other (bladder cancer) Father - Hypertension Sister Social History Tobacco Use - Smoking status: Never Smoker - Smokeless tobacco: Never Used Vaping Use - Vaping Use: Never used Substance Use Topics - Alcohol use: Yes Comment: rarely - Drug use: No Current Outpatient Medications Medication Sig - buPROPion SR (ZYBAN SR; WELLBUTRIN SR) 150 mg 12 hr tablet Take 300 mg by mouth once daily. - aspirin, enteric coated (ASPIRIN, ENTERIC COATED) 81 mg EC tablet Take 81 mg by mouth once daily. - prasugrel (EFFIENT) 10 mg tab Take 10 mg by mouth once daily. - carvedilol (COREG) 6.25 mg tablet Take 6.25 mg by mouth twice daily with meals. - atorvastatin (LIPITOR) 80 mg tablet Take 80 mg by mouth once daily. - folic acid 1 mg tablet Take 1 mg by mouth once daily. - cholecalciferol, vitamin D3, (VITAMIN D3 ORAL) Take by mouth. - metFORMIN (GLUCOPHAGE) 500 mg tablet Take 500 mg by mouth twice daily. - hydrALAZINE (APRESOLINE) 25 mg tablet 25 mg. - Calcium Carb-Magnesium Carb 250-300 mg tab Calcium Carbonate / magnesium carbonate calcium carb-magnesium carb 250 mg-300 mg tablet Active 1 TAB TWICE A DAY December 16, 2017 11:30am 12-16-2017 [facility] ([id number]) - hydroCHLOROthiazide (HYDRODIURIL, ESIDRIX) 25 mg tablet 25 mg. - vit A-vit D3-vit E-vit K 2,000 unit-2000 unit-1,000 mcg cap Take by mouth. - Ipratropium [place] (ATROVENT) 0.03 % nasal spray Use 2 Sprays in the nose every 12 hours. - vitamin B complex (B COMPLEX 1 ORAL) Take by mouth. - esomeprazole (NEXIUM 24HR) 20 mg capsule Take 2 capsules by mouth DAILY (6 AM). - SUMAtriptan (IMITREX) 50 mg tablet Take 50 mg by mouth as needed. - bisoprolol (ZEBETA) 10 mg tablet Take 10 mg by mouth daily at bedtime. - fexofenadine (HUMBERTO) 180 mg tablet Take 180 mg by mouth twice daily. - promethazine (PHENERGAN) 25 mg tablet Take 25 mg by mouth as needed. - quinapril (ACCUPRIL) 20 mg tablet Take 20 mg by mouth daily at bedtime. - ondansetron (ZOFRAN) 8 mg tablet Take 8 mg by mouth every 8 hours as needed. - spironolactone (ALDACTONE) 50 mg tablet Take 50 mg by mouth once daily. - HYDROcodone-Acetaminophen (VICODIN) 5-300 mg tab Take by mouth as needed. - MULTI-VITAMIN ORAL Take by mouth. - meclizine 12.5 mg ORAL Tab Take 1 tablet by mouth every 6 hours as needed (dizziness). (Patient taking differently: Take 25 mg by mouth three times daily as needed (dizziness). ) - coenzyme Q10 (COENZYME Q-10) 100 mg cap capsule 100 mg. (Patient not taking: Reported on 11/26/2020 ) - traZODone (DESYREL) 50 mg tablet Take 50 mg by mouth daily at bedtime. (Patient not taking: Reported on 11/26/2020 ) - amLODIPine (NORVASC) 5 mg tablet Take 5 mg by mouth daily at bedtime. (Patient not taking: Reported on 11/26/2020 ) - baclofen (LIORESAL) 20 mg tablet Take 20 mg by mouth daily at bedtime. - famotidine (PEPCID) 20 mg tablet Take 20 mg by mouth daily at bedtime. No current facility-administered medications for this visit. Allergies As of Date: 11/26/2020 Allergen Noted Reaction NECON [NORETHINDRONE-ETHIN ESTRAD*04/25/2014 Hives PENICILLINS 12/31/2010 Hives Fully Assessed 11/26/2020 REVIEW OF SYSTEMS Abdomen: No bloating, early satiety, indigestion, or increased flatulence. No abdominal pain, nausea, vomiting, diarrhea, or constipation. Bladder: No dysuria, gross hematuria, uri (more content not included)... [facility] 11-19-2020 Note HNO ID: [id number] Author: Tracy Delogn, OT/L Service: ? Author Type: Occupational Therapist Type: Progress Notes Filed: 07/18/2021 12:21 PM Note Text: 07/18/2021 REHABILITATION AND SPORTS THERAPY OCCUPATIONAL THERAPY DISCONTINUANCE OF CARE Plan of Care Period: Start of Care Date: 10/16/20 Last Visit Date: 11/19/2020 Therapy Program: The following is a summary of the interventions provided for this episode of care; Therapeutic exercise and Self-custodial management Assessment: Based on most recent visit, patient was progressing as expected toward functional goals based on documented subjective information on progress. Unable to formally assess goal achievement due to non-compliance with therapy plan of care. Reason for Discontinuation of Care: Patient has not returned to therapy or scheduled additional follow-up appointments. 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 The patient will continue to benefit from continued skilled occupational therapy for improved symptom free functional hand use. Patient noticed Decreased palmar crepitus While making a fist with relative motin orthosis on right hand. PLAN FOR NEXT VISIT: recheck effectiveness of relative motion splint for daytime activty use and probable discharge SUBJECTIVE: Likes using the brace at night has occassional daytime achiness with active repetive full gripping at the midmetacarpla of ring finger Pain: Pain Pain Level: 0 Post Treatment Pain Post Treatment Pain Level: 0 OBJECTIVE MEASURES WITH LEVEL OF FUNCTION: Hand Strength: Pinch Meter;Editor News Position 2 Hand Strength R Editor News Position 2 (lbs): 75 lbs R Lateral Pinch (lbs): 19 lbs R Tripod/ 3 Jaw Bienvenido (lbs): 15.5 lbs TREATMENT: Therapeutic Exercise: 1: measurements taken 2: ice cup massage palmar region after work activities 3: fabricated relative motion finger splint for ring finger to use at work and with driving and daytime AADls Skilled Intervention: Skilled judgment was provided in selection of appropriate interventions. Custom orthosis: L 3919 HO w/out fingers (hand only, palm protector, hand clam) Custom orthosis to provide protection of A-1 kaila and flxor tendon sheaths reducing crepitus thus allowing/promoting healing and reducing pain and symptoms with hand use. Pt practiced orthosis application, donning on/off while under OT's supervision.. 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 Skilled Intervention: Clinical knowledge and skills required for custom orthotic fabrication and wearing schedule Billing Therapeutic Exercise Treatment Minutes: 10 Fabrication time for custom splint (minutes): 20 Tracy Delong OT/L [facility] 11-14-2020 Note HNO ID: [id number] Author: RT Pollo(R) Service: Radiology Author Type: Technologist Type: Progress Notes Filed: 11/14/2020 2:23 PM Note Text: Radiology Service Progress Note PATIENT NAME: Carlos López DATE OF SERVICE: November 14, 2020 TIME: 2:23 PM PATIENT IDENTITY VERIFICATION COMPLETED USING TWO (2) IDENTIFIERS: Name and Date of confirmed by patient verbally. FALL SCREENING: Has the patient had 2 falls in the last year or 1 fall with injury or currently using an Ambulatory Assistive Device (Walker, Cane, Wheelchair, Crutches, etc.)? No PATIENT GENDER DATA: Female. status: : No status: N/A PATIENT RELEVANT IMPLANT DATA REVIEWED: Not Applicable RADIOLOGY DEPARTMENT: General X-ray: Exam(s) Completed: Upper Extremity X-Ray(s): Hand, right PERIPHERAL IV DATA: Not applicable SIGNED BY: RT Pollo(R) November 14, 2020 2:23 PM [facility] 11-14-2020 Note HNO ID: [id number] Author: Darya Cordon, DO Service: ? Author Type: Physician Type: Progress Notes Filed: 11/14/2020 2:33 PM Note Text: Follow Up Visit Chief Complaint Carlos López is a 40 year old female who presents today for follow up office visit. Patient presents with: Right Hand - Follow Up, Pain History of Present Illness PAIN EVALUATION 11/14/2020 1308 Pain Level: 2 Pain Location: Hand-Right Description: Aching;Stiffness;Dull;Sore Duration Amount of Time: ? ongoing Frequency: Intermittent Intervention/Comfort measure: Reposition;Relaxation HPI: Carlos J Rene is a 40 year old female for a follow up visit For right hand pain, not specific pain, wosrse with extended use. Pain history is noted as above. Denies calf pain, numbness, tingling, fever, chills or other constitutional symptoms. Is there any overall improvement in your condition? No Any new injury, since being seen last: No REVIEW OF SYMPTOMS: Patient did not have, and does not currently have, any weight loss, malaise, fever, chills, headache, chest pain, chest pressure, palpitations, cough, shortness of breath, orthopnea, paroxsymal nocturnal dyspnea, nausea, vomiting, diarrhea, constipation, melena, hematochezia, urinary difficulties, prolonged bleeding, easily bruising, heat or cold intolerance, new onset joint pain or swelling, new onset extremity weakness or numbness, new onset auditory or visual disturbances, lightheadedness, dizziness, partial loss of consciousness or full loss of consciousness. Current Outpatient Medications Medication Sig - buPROPion SR (ZYBAN SR; WELLBUTRIN SR) 150 mg 12 hr tablet Take 150 mg by mouth once daily. - aspirin, enteric coated (ASPIRIN, ENTERIC COATED) 81 mg EC tablet Take 81 mg by mouth once daily. - prasugrel (EFFIENT) 10 mg tab Take 10 mg by mouth once daily. - carvedilol (COREG) 6.25 mg tablet Take 6.25 mg by mouth twice daily with meals. - atorvastatin (LIPITOR) 80 mg tablet Take 80 mg by mouth once daily. - folic acid 1 mg tablet Take 1 mg by mouth once daily. - cholecalciferol, vitamin D3, (VITAMIN D3 ORAL) Take by mouth. - metFORMIN (GLUCOPHAGE) 500 mg tablet Take 500 mg by mouth twice daily. - hydrALAZINE (APRESOLINE) 25 mg tablet 25 mg. - coenzyme Q10 (COENZYME Q-10) 100 mg cap capsule 100 mg. - Calcium Carb-Magnesium Carb 250-300 mg tab Calcium Carbonate / magnesium carbonate calcium carb-magnesium carb 250 mg-300 mg tablet Active 1 TAB TWICE A DAY December 16, 2017 11:30am 12-16-2017 [facility] ([id number]) - hydroCHLOROthiazide (HYDRODIURIL, ESIDRIX) 25 mg tablet 25 mg. - vit A-vit D3-vit E-vit K 2,000 unit-2000 unit-1,000 mcg cap Take by mouth. - traZODone (DESYREL) 50 mg tablet Take 50 mg by mouth daily at bedtime. - Ipratropium [place] (ATROVENT) 0.03 % nasal spray Use 2 Sprays in the nose every 12 hours. - vitamin B complex (B COMPLEX 1 ORAL) Take by mouth. - esomeprazole (NEXIUM 24HR) 20 mg capsule Take 2 capsules by mouth DAILY (6 AM). - SUMAtriptan (IMITREX) 50 mg tablet Take 50 mg by mouth as needed. - amLODIPine (NORVASC) 5 mg tablet Take 5 mg by mouth daily at bedtime. - bisoprolol (ZEBETA) 10 mg tablet Take 10 mg by mouth daily at bedtime. - fexofenadine (HUMBERTO) 180 mg tablet Take 180 mg by mouth twice daily. - promethazine (PHENERGAN) 25 mg tablet Take 25 mg by mouth as needed. - quinapril (ACCUPRIL) 20 mg tablet Take 20 mg by mouth daily at bedtime. - baclofen (LIORESAL) 20 mg tablet Take 20 mg by mouth daily at bedtime. - ondansetron (ZOFRAN) 8 mg tablet Take 8 mg by mouth every 8 hours as needed. - spironolactone (ALDACTONE) 50 mg tablet Take 50 mg by mouth once daily. - HYDROcodone-Acetaminophen (VICODIN) 5-300 mg tab Take by mouth as needed. - famotidine (PEPCID) 20 mg tablet Take 20 mg by mouth daily at bedtime. - MULTI-VITAMIN ORAL Take by mouth. - meclizine 12.5 mg ORAL Tab Take 1 tablet by mouth every 6 hours as needed (dizziness). (Patient taking differently: Take 25 mg by mouth three times daily as needed (dizziness). ) No current facility-administered medications for this visit. Physical Exam Vitals: [facility] 07/11/2015 Psych: Pleasant, good affect and mood General Appearance: Well appearing, alert, in no acute distress, well-hydrated, well nourished.. Skin: Skin color, texture, turgor normal, no suspicious rashes or lesions. Peripheral Pulses: Normal. Neurologic: Gait normal. Reflexes normal and symmetric. Sensation grossly intact.. Lymph Nodes: No cervical lymphadenopathy, No supraclavicular lymphadenopathy, No axillary lymphadenopathy. and No inguinal lymphadenopathy.. Respiratory: No recent pulmonary infection, hemoptysis, chronic cough, or shortness of breath at rest Rheumatologic: Joint deformities: Right hand soreness Right Hand Exam Right hand exam is normal. Tenderness The patient is experiencing no tenderness. Range of Motion The (more content not included)... [facility] 10-16-2020 Note HNO ID: [id number] Author: Heather Vyas OT/L Service: ? Author Type: Occupational Therapist Type: Progress Notes Filed: 10/16/2020 5:36 PM Note Text: Episode Visit Count: 1 Therapist That Will Oversee The Plan Of Care: Asael Romero Start of Care Date: 10/16/20 Onset Date: 10/10/20 Plan of Care Certification Date: 10/16/20 Next Certification Due Date: 12/14/20 Patient Identified by Name and Date of : Yes [facility] OCCUPATIONAL THERAPY EVALUATION PLAN OF CARE: Assessment: Carlos López presents with the chief complaint of hand pain. She presents with impairments of motion pain. She may benefit from skilled occupational therapy services to improve function reduce pain. Prognosis: Good Goals for Episode of Care created on 10/16/20 through Patient will report a good understanding of diagnosis and OT recommendations for progression of program. Patient will demonstrate independence with ongoing home recommendations/exercise program throughout therapy plan of care. Patient will report a decrease in pain in Right hand to 1/10 with prior functional tasks. Planned Interventions, Frequency, and Duration: Current Frequency: 1x every other week Total Number of Visits Planned: 3 Planned Treatment Interventions: Prefabricated orthosis fitting;Therapeutic exercise (46535);Manual therapy (67669);Self-custodial management (30604);Fluidotherapy (80542) PLAN FOR NEXT VISIT: re check Patient demonstrates good understanding of plan of care and treatment. The above goals and plan of care were discussed and agreed upon by patient/family. 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 5 points is clinically meaningfully difference Percentiles provide an indication of how the patient's score ranks in relation to the general population. Higher percentile rankings indicate better function/quality of life. 50th percentile is the average of the general population and indicates half of respondents had a worse score. T-scores: mean of general population = 50. 5 points is clinically meaningfully difference Percentiles provide an indication of how the patient's score ranks in relation to the general population. Higher percentile rankings indicate better function/quality of life. 50th percentile is the average of the general population and indicates half of respondents had a worse score. OBJECTIVE MEASURES WITH LEVEL OF FUNCTION: Hand Edema Description: Mild Edema Measurements: DPC (cm) R DPC (cm): 19.5 L DPC (cm): 19 Elbow AROM: WFL Wrist AROM: WFL Right Hand AROM: WFL Left Hand AROM: WFL Strength: Editor News Position 2;Pinch Meter;Wrist Hand Strength R Editor News Position 2 (lbs): 57 lbs L Editor News Position 2 (lbs): 61 lbs R Lateral Pinch (lbs): 16 lbs R Tripod/ 3 Jaw Bienvenido (lbs): 12 lbs R Tip Pinch (lbs): 14 lbs L Lateral Pinch (lbs): 19 lbs L Tripod/ 3 Jaw Bienvenido (lbs): 16 lbs L Tip Pinch (lbs): 16 lbs UE AROM Right Hand AROM: WFL Left Hand AROM: WFL Education: Education Learning Preferences: Demonstration;Explanation;Performance TREATMENT: OT Treatment Interventions : Therapeutic Exercise;Self-Long-Term Management;Custom Orthosis/Splint Fabrication Evaluation Evaluation Therapeutic Exercise: 1: claw AROM 2: full fist PROM 3: ice and or contrast bath with precautions 4: fabricated night splint instructed in wear schedule and precautions Skilled Intervention: Patient was educated in proper exercise technique and purpose for exercises. Self-Long-Term Management: 1: educated in diagnosis and healing 2: activity modification Skilled Intervention: Skilled judgment in the selection of proper modification for activity of daily living/home management based on clinical presentation, deficits, and needs. Custom orthosis: L 3919 HO w/out fingers (hand only, palm protector, hand clam) Custom orthosis to provide Pt practiced orthosis application, donning on/off while under OT's supervision. and to promote healin (more content not included)... [facility] 10-16-2020 Note HNO ID: [id number] Author: Darya Cordon, DO Service: ? Author Type: Physician Type: Progress Notes Filed: 10/16/2020 5:59 PM Note Text: Follow Up Visit Chief Complaint Carlos López is a 40 year old female who presents today for follow up office visit. Patient presents with: Right Hand - Established Patient, Pain History of Present Illness PAIN EVALUATION 10/16/2020 1114 Pain Level: 5 Pain Location: Hand-Right Description: Aching;Dull Duration Amount of Time: 5 Duration Units: Days Frequency: Continuous Intervention/Comfort measure: Reposition;Relaxation;Medication Ibuprofen, thumb splint, KT tape, HPI: Carlos López is a 40 year old female for a follow up visit Left hand pain. Patient states Denies numbness, tingling, fever, chills or other constitutional symptoms. Pain history is noted as above. States doing well other than hand feels tight and resting it improves her pain. Is there any overall improvement in your condition? No Any new injury, since being seen last: No REVIEW OF SYMPTOMS: Patient did not have, and does not currently have, any weight loss, malaise, fever, chills, headache, chest pain, chest pressure, palpitations, cough, shortness of breath, orthopnea, paroxsymal nocturnal dyspnea, nausea, vomiting, diarrhea, constipation, melena, hematochezia, urinary difficulties, prolonged bleeding, easily bruising, heat or cold intolerance, new onset joint pain or swelling, new onset extremity weakness or numbness, new onset auditory or visual disturbances, lightheadedness, dizziness, partial loss of consciousness or full loss of consciousness. Current Outpatient Medications Medication Sig - buPROPion SR (ZYBAN SR; WELLBUTRIN SR) 150 mg 12 hr tablet Take 150 mg by mouth once daily. - aspirin, enteric coated (ASPIRIN, ENTERIC COATED) 81 mg EC tablet Take 81 mg by mouth once daily. - prasugrel (EFFIENT) 10 mg tab Take 10 mg by mouth once daily. - carvedilol (COREG) 6.25 mg tablet Take 6.25 mg by mouth twice daily with meals. - atorvastatin (LIPITOR) 80 mg tablet Take 80 mg by mouth once daily. - folic acid 1 mg tablet Take 1 mg by mouth once daily. - cholecalciferol, vitamin D3, (VITAMIN D3 ORAL) Take by mouth. - metFORMIN (GLUCOPHAGE) 500 mg tablet Take 500 mg by mouth twice daily. - hydrALAZINE (APRESOLINE) 25 mg tablet 25 mg. - coenzyme Q10 (COENZYME Q-10) 100 mg cap capsule 100 mg. - Calcium Carb-Magnesium Carb 250-300 mg tab Calcium Carbonate / magnesium carbonate calcium carb-magnesium carb 250 mg-300 mg tablet Active 1 TAB TWICE A DAY December 16, 2017 11:30am 12-16-2017 [facility] (98839) - hydroCHLOROthiazide (HYDRODIURIL, ESIDRIX) 25 mg tablet 25 mg. - vit A-vit D3-vit E-vit K 2,000 unit-2000 unit-1,000 mcg cap Take by mouth. - traZODone (DESYREL) 50 mg tablet Take 50 mg by mouth daily at bedtime. - Ipratropium [place] (ATROVENT) 0.03 % nasal spray Use 2 Sprays in the nose every 12 hours. - vitamin B complex (B COMPLEX 1 ORAL) Take by mouth. - esomeprazole (NEXIUM 24HR) 20 mg capsule Take 2 capsules by mouth DAILY (6 AM). - SUMAtriptan (IMITREX) 50 mg tablet Take 50 mg by mouth as needed. - amLODIPine (NORVASC) 5 mg tablet Take 5 mg by mouth daily at bedtime. - bisoprolol (ZEBETA) 10 mg tablet Take 10 mg by mouth daily at bedtime. - fexofenadine (HUMBERTO) 180 mg tablet Take 180 mg by mouth twice daily. - promethazine (PHENERGAN) 25 mg tablet Take 25 mg by mouth as needed. - quinapril (ACCUPRIL) 20 mg tablet Take 20 mg by mouth daily at bedtime. - baclofen (LIORESAL) 20 mg tablet Take 20 mg by mouth daily at bedtime. - ondansetron (ZOFRAN) 8 mg tablet Take 8 mg by mouth every 8 hours as needed. - spironolactone (ALDACTONE) 50 mg tablet Take 50 mg by mouth once daily. - HYDROcodone-Acetaminophen (VICODIN) 5-300 mg tab Take by mouth as needed. - famotidine (PEPCID) 20 mg tablet Take 20 mg by mouth daily at bedtime. - MULTI-VITAMIN ORAL Take by mouth. - meclizine 12.5 mg ORAL Tab Take 1 tablet by mouth every 6 hours as needed (dizziness). (Patient taking differently: Take 25 mg by mouth three times daily as needed (dizziness). ) No current facility-administered medications for this visit. Physical Exam Vitals: [facility] 07/11/2015 Psych: Pleasant, good affect and mood General Appearance: Well appearing, alert, in no acute distress, well-hydrated, well nourished.. Skin: Skin color, texture, turgor normal, no suspicious rashes or lesions. Peripheral Pulses: Normal. Neurologic: Gait normal. Reflexes normal and symmetric. Sensation grossly intact.. Lymph Nodes: No cervical lymphadenopathy, No supraclavicular lymphadenopathy, No axillary lymphadenopathy. and No inguinal lymphadenopathy.. Respiratory: No recent pulmonary infection, hemoptysis, chronic cough, or shortness of breath at rest Rheumatologic: Joint deformities: Right hand pain Right Hand Exam Right hand exam is normal (more content not included)... [facility] 09-26-2020 Note HNO ID: [id number] Author: MANGO Purvis Service: Radiology Author Type: Clinical [employer] Type: Progress Notes Filed: 09/26/2020 10:26 AM Note Text: Radiology Service Progress Note PATIENT NAME: Carlos López DATE OF SERVICE: September 26, 2020 TIME: 10:26 AM PATIENT IDENTITY VERIFICATION COMPLETED USING TWO (2) IDENTIFIERS: Name and Date of confirmed by patient verbally. FALL SCREENING: Has the patient had 2 falls in the last year or 1 fall with injury or currently using an Ambulatory Assistive Device (Walker, Cane, Wheelchair, Crutches, etc.)? No PATIENT GENDER DATA: Female. status: : No status: NO. PATIENT RELEVANT IMPLANT DATA REVIEWED: Not Applicable RADIOLOGY DEPARTMENT: General X-ray: Exam(s) Completed: Upper Extremity X-Ray(s): Hand, left PERIPHERAL IV DATA: Not applicable SIGNED BY: MANGO Purvis September 26, 2020 10:26 AM [facility] documented as of this encounter (statuses as of 06/03/2021) [facility] History of Past illness Narrative* Problem Noted Date Resolved Date Dysplasia of cervix, unspecified 08/06/2011 08/06/2011 documented as of this encounter (statuses as of 06/12/2021) [facility] History of Past illness Narrative* Problem Noted Date Resolved Date Dysplasia of cervix, unspecified 08/06/2011 08/06/2011 documented as of this encounter (statuses as of 06/18/2021) [facility] of Past illness Narrative* Problem Noted Date Resolved Date Dysplasia of cervix, unspecified 08/06/2011 08/06/2011 documented as of this encounter (statuses as of 06/20/2021) [facility] of Past illness Narrative* Problem Noted Date Resolved Date Dysplasia of cervix, unspecified 08/06/2011 08/06/2011 documented as of this encounter (statuses as of 06/21/2021) [facility] of Past illness Narrative* Problem Noted Date Resolved Date Dysplasia of cervix, unspecified 08/06/2011 08/06/2011 documented as of this encounter (statuses as of 07/02/2021) [facility] of Past illness Narrative* Problem Noted Date Resolved Date Dysplasia of cervix, unspecified 08/06/2011 08/06/2011 documented as of this encounter (statuses as of 07/02/2021) [facility] of Past illness Narrative* Problem Noted Date Resolved Date Dysplasia of cervix, unspecified 08/06/2011 08/06/2011 documented as of this encounter (statuses as of 07/09/2021) [facility] of Past illness Narrative* Problem Noted Date Resolved Date Dysplasia of cervix, unspecified 08/06/2011 08/06/2011 documented as of this encounter (statuses as of 07/24/2021) [facility] of Past illness Narrative* Problem Noted Date Resolved Date Dysplasia of cervix, unspecified 08/06/2011 08/06/2011 documented as of this encounter (statuses as of 07/25/2021) [facility] of Past illness Narrative* Problem Noted Date Resolved Date Dysplasia of cervix, unspecified 08/06/2011 08/06/2011 documented as of this encounter (statuses as of 09/01/2021) [facility] of Past illness Narrative* Problem Noted Date Resolved Date Dysplasia of cervix, unspecified 08/06/2011 08/06/2011 documented as of this encounter (statuses as of 10/09/2021) [facility] of [facility] illness Narrative* Problem Noted Date Resolved Date Dysplasia of cervix, unspecified 08/06/2011 08/06/2011 documented as of this encounter (statuses as of 11/06/2021) [facility] + Plan note Future Appointments Appointment Date:01/25/2021 11:00:00 AM Scheduled Provider: Location:[facility] Appointment Type:[facility] Future Scheduled Tests Laboratory* Lipid Profile 08/08/20 [facility] Evaluation note* Diagnosis Pain- Primary Generalized pain [facility] Pain Generalized pain [facility] Diagnosis Carpal tunnel syndrome of right wrist Carpal tunnel syndrome Ulnar neuritis, right Carpal tunnel syndrome, left upper limb Paresthesia of skin Disturbance of skin sensation [facility] Diagnosis Chronic pelvic pain in female- Primary Unspecified symptom associated with female genital organs Pelvic pain in female Unspecified symptom associated with female genital organs Pelvic and perineal pain Unspecified symptom associated with female genital organs Dysmenorrhea Menorrhagia with regular cycle Excessive or frequent menstruation High-tone pelvic floor dysfunction Other specified disorders of female genital organs Urinary urgency Urgency of urination Other specified dyspareunia [facility] Carpal tunnel syndrome of right wrist- Primary Carpal tunnel syndrome [facility] Diagnosis Suprapubic pain- Primary Abdominal pain, other specified site Urinary dysfunction Other abnormality of urination [facility] Diagnosis Chronic pelvic pain in female- Primary Unspecified symptom associated with female genital organs [facility] Diagnosis Dysmenorrhea Menorrhagia with regular cycle Excessive or frequent menstruation Chronic pelvic pain in female Unspecified symptom associated with female genital organs Pelvic and perineal pain Unspecified symptom associated with female genital organs [facility] Diagnosis Pelvic and perineal pain Unspecified symptom associated with female genital organs Dysmenorrhea Menorrhagia with regular cycle Excessive or frequent menstruation Chronic pelvic pain in female Unspecified symptom associated with female genital organs [facility] Narr[facility] No data available for this section [facility] Hospital Discharge instructions No data available for this section [facility] Reason for referral (narrative)* Diagnostic Procedure Only (Routine) - Authorized Specialty Diagnoses / Procedures Referred By Contac t Referred To Contact XR IMAGING Diagnoses Pain Procedures XR ELBOW SPECIAL VIEWS AP/LAT/OTHER RIGHT RADEX ELBOW COMPLETE MINIMUM 3 VIEWS Darya Cordon DO [address] [place] [address] Xr Imaging Referral ID Status Reason Start Date Expiration Date Visits Requested Visits Authorized [id number] Authorized Auto-Generat ed Referral 06/03/2021 07/03/2022 1 1 [facility] for referral (narrative)* Diagnostic Procedure Only (Routine) - Closed Specialty Diagnoses / Procedures Referred By Contac t Referred To Contact XR IMAGING Diagnoses Pain Procedures XR ELBOW SPECIAL VIEWS AP/LAT/OTHER RIGHT RADEX ELBOW COMPLETE MINIMUM 3 VIEWS Darya Cordon DO [address] [place] [id number] Xr Imaging Referral ID Status Reason Start Date Expiration Date V isits Requested Visits Authorized [id number] Closed Auto-Generate d Referral 06/03/2021 07/03/2022 1 1 [facility] for visit Narrative* Diagnostic Procedure Only (Routine) - Closed Specialty Diagnoses / Procedures Referred By Contac t Referred To Contact XR IMAGING Diagnoses Pain Procedures XR ELBOW SPECIAL VIEWS AP/LAT/OTHER RIGHT RADEX ELBOW COMPLETE MINIMUM 3 VIEWS Darya Cordon DO [address] [place] [address] Xr Imaging Referral ID Status Reason Start Date Expiration Date V isits Requested Visits Authorized [id number] Closed Auto-Generate d Referral 06/03/2021 07/03/2022 1 1 [facility] Summary Purpose Family History No Family History Records FoundNo Family History Records FoundNo Family History Records FoundNo Family History Records Found Advance Directives Documents on File Type Date Recorded 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 Advance Directive(s) 04/16/2018 8:38 AM Documents on File Type Date Recorded 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 Advance Directive(s) 04/16/2018 8:38 AM Reason for Referral Specialty Diagnoses / Procedures Referred By Contac t Referred To Contact Diagnoses Chronic pelvic pain in female Radha Storm, DAYCARE WORKER.PATIENT SITTER [address] [place] [address] Referral ID Status Reason Start Date Expiration Date Visits Re quested Visits Authorized [id number] Closed 1 1 Specialty Diagnoses / Procedures Referred By Contac t Referred To Contact [facility] Diagnoses Suprapubic pain Urinary dysfunction Procedures PT REHAB FOLLOW UP ORDER PT REHAB FOLLOW UP ORDER THERAPEUTIC EXERCISES RE, EA 15 [address] [place] [address] [facility] [address] [place] [id number] Referral ID Status Reason Start Date Expiration Date Visits Requested Visits Authorized [id number] Pending Review PCP Requested Referral Auto-Generate d Referral 07/24/2021 10/22/2021 1 1 Specialty Diagnoses / Procedures Referred By Contac t Referred To Contact Diagnoses Dysmenorrhea Menorrhagia with regular cycle Chronic pelvic pain in female Procedures CONSULT TO MINIMALLY INVASIVE GYNECOLOGIC SURGERY OFFICE/OUTPATIENT NEW HIGH MDM 60-74 MINUTES Nita Mendes, DAYCARE WORKER.PATIENT SITTER [address] [place] [id number] Referral ID Status Reason Start Date Expiration Date Visits Requested Visits Authorized [id number] Authorized PCP Requested Referral Auto-Generate d Referral 07/02/2021 07/02/2022 1 1 Specialty Diagnoses / Procedures Referred By Contac t Referred To Contact MR IMAGING Diagnoses Pelvic and perineal pain Dysmenorrhea Menorrhagia with regular cycle Chronic pelvic pain in female Procedures MRI FEMALE PELVIS WO/W IVCON MRI PELVIS W/O & W/CONTRAST MATERIAL Nita Mendes, DAYCARE WORKER.PATIENT SITTER [address] [place], [place] [id number] Mr Imaging Referral ID Status Reason Start Date Expiration Date Visits Requested Visits Authorized [id number] Pending Review Auto-Generat ed Referral 07/02/2021 08/01/2022 1 1 Specialty Diagnoses / Procedures Referred By Contac t Referred To Contact [facility] Diagnoses Dysmenorrhea Menorrhagia with regular cycle High-tone pelvic floor dysfunction Urinary urgency Other specified dyspareunia Chronic pelvic pain in female Procedures CONSULT TO PHYSICAL THERAPY PHYSICAL THERAPY EVALUATION HIGH COMPLEX 45 MINS Nita Mendes, DAYCARE WORKER.PATIENT SITTER [address] [place] [address] [facility] [address] [place] [address] Referral ID Status Reason Start Date Expiration Date Visits Requested Visits Authorized [id number] Pending Review Auto-Generat ed Referral 07/02/2021 07/02/2022 1 1 Additional Source Comments INFORMATION SOURCE (unrecogn ized section and content) DATE CREATED AUTHOR AUTHOR'S ORGANIZ ATION 07/19/2021 [facility] DATE CREATED AUTHOR AUTHOR'S ORGANIZ ATION 07/25/2021 [facility] DATE CREATED AUTHOR AUTHOR'S ORGANIZ ATION 10/09/2021 [facility] Source Comments (unrecognize d section and content) In the event this informatio n is protected by the Federal Confidentiality of Alcohol and Drug Abuse Patient Records regulations: The Federal rules restrict any use of the information to criminally investigate or prosecute any alcohol or drug abuse patient.[facility] the event this information is protected by the Federal Confidentiality of Alcohol and Drug Abuse Patient Records regulations: The Federal rules restrict any use of the information to criminally investigate or prosecute any alcohol or drug abuse patient.[facility] the event this information is protected by the Federal Confidentiality of Alcohol and Drug Abuse Patient Records regulations: The Federal rules restrict any use of the information to criminally investigate or prosecute any alcohol or drug abuse patient.[facility] the event this information is protected by the Federal Confidentiality of Alcohol and Drug Abuse Patient Records regulations: The Federal rules restrict any use of the information to criminally investigate or prosecute any alcohol or drug abuse patient.[facility] the event this information is protected by the Federal Confidentiality of Alcohol and Drug Abuse Patient Records regulations: The Federal rules restrict any use of the information to criminally investigate or prosecute any alcohol or drug abuse patient.[facility] the event this information is protected by the Federal Confidentiality of Alcohol and Drug Abuse Patient Records regulations: The Federal rules restrict any use of the information to criminally investigate or prosecute any alcohol or drug abuse patient.[facility] HospitalIn the event this information is protected by the Federal Confidentiality of Alcohol and Drug Abuse Patient Records regulations: The Federal rules restrict any use of the information to criminally investigate or prosecute any alcohol or drug abuse patient.[facility] HospitalIn the event this information is protected by the Federal Confidentiality of Alcohol and Drug Abuse Patient Records regulations: The Federal rules restrict any use of the information to criminally investigate or prosecute any alcohol or drug abuse patient.[facility]In the event this information is protected by the Federal Confidentiality of Alcohol and Drug Abuse Patient Records regulations: The Federal rules restrict any use of the information to criminally investigate or prosecute any alcohol or drug abuse patient.[facility] HospitalIn the event this information is protected by the Federal Confidentiality of Alcohol and Drug Abuse Patient Records regulations: The Federal rules restrict any use of the information to criminally investigate or prosecute any alcohol or drug abuse patient.[facility] HospitalIn the event this information is protected by the Federal Confidentiality of Alcohol and Drug Abuse Patient Records regulations: The Federal rules restrict any use of the information to criminally investigate or prosecute any alcohol or drug abuse patient.[facility] HospitalIn the event this information is protected by the Federal Confidentiality of Alcohol and Drug Abuse Patient Records regulations: The Federal rules restrict any use of the information to criminally investigate or prosecute any alcohol or drug abuse patient.[facility] HospitalIn the event this information is protected by the Federal Confidentiality of Alcohol and Drug Abuse Patient Records regulations: The Federal rules restrict any use of the information to criminally investigate or prosecute any alcohol or drug abuse patient.[facility] Care Teams (unrecognized sec tion and content) Special Projects Coordinator Relationship Specialty Start Date End Date Figueroa Gibson MD PCP - General Family Practice 12/12/10 Special Projects Coordinator Relationship Specialty Start Date End Date Figueroa Gibson MD PCP - General Family Practice 12/12/10 Special Projects Coordinator Relationship Specialty Start Date End Date Figueroa Gibson MD PCP - General Family Practice 12/12/10 Special Projects Coordinator Relationship Specialty Start Date End Date Figueroa Gibson MD PCP - General Family Practice 12/12/10 Special Projects Coordinator Relationship Specialty Start Date End Date Figueroa Gibson MD PCP - General Family Practice 12/12/10 Special Projects Coordinator Relationship Specialty Start Date End Date Figueroa Gibson MD PCP - General Family Practice 12/12/10 Special Projects Coordinator Relationship Specialty Start Date End Date Figueroa Gibson MD PCP - General Family Practice 12/12/10 Special Projects Coordinator Relationship Specialty Start Date End Date Figueroa Gibson MD PCP - General Family Practice 12/12/10 Special Projects Coordinator Relationship Specialty Start Date End Date Figueroa Gibson MD PCP - General Family Practice 12/12/10 Special Projects Coordinator Relationship Specialty Start Date End Date Figueroa Gibson MD PCP - General Family Practice 12/12/10 Special Projects Coordinator Relationship Specialty Start Date End Date Figueroa Gibson MD PCP - General Family Practice 12/12/10 Special Projects Coordinator Relationship Specialty Start Date End Date Figueroa Gibson MD PCP - General Family Medicine 12/12/10 Reason for Visit (unrecogniz ed section and content) Reason Onset Date Comments EMG 06/21/2021 Specialty Diagnoses / Procedures Referred By Contac t Referred To Contact [facility] Diagnoses Carpal tunnel syndrome of right wrist Ulnar neuritis, right Procedures EMG(NEURO/NI) NERVE CONDUCTION STUDIES 9-10 STUDIES Darya Cordon DO [address] [place] [address] [facility] [place] [address] [place] [id number] Referral ID Status Reason Start Date Expiration Date V isits Requested Visits Authorized [id number] Closed Auto-Generate d Referral 06/20/2021 2022 1 1 Reason Comments Consult Specialty Diagnoses / Procedures Referred By Contac t Referred To Contact Diagnoses Pelvic pain in female Procedures CONSULT TO SALES APPOINTMENT COORDINATOR PELVIC PAIN NEW PATIENT VISIT LEVEL 5 Denice Cornejo MD [address] [place] [address] Referral ID Status Reason Start Date Expiration Date V isits Requested Visits Authorized [id number] Closed PCP Requested Referral Auto-Generated Referral 01/23/2021 01/23/2022 1 1 Reason Comments Results Reason Comments Follow Up Pain Reason Comments PT Eval Specialty Diagnoses / Procedures Referred By Contac t Referred To Contact PHYSICAL THERAPY Diagnoses Dysmenorrhea Menorrhagia with regular cycle High-tone pelvic floor dysfunction Urinary urgency Other specified dyspareunia Chronic pelvic pain in female Procedures CONSULT TO PHYSICAL THERAPY PHYSICAL THERAPY EVALUATION HIGH COMPLEX 45 MINS Nita Mendes APRN.PATIENT SITTER [address] [place] [address] Pt [facility] [address] [place] [address] Referral ID Status Reason Start Date Expiration Date Visits Requested Visits Authorized [id number] Authorized Auto-Generat ed Referral 07/02/2021 12/09/2021 20 20 Reason Comments Orders Patient Question Reason Comments Consult Specialty Diagnoses / Procedures Referred By Contac t Referred To Contact Diagnoses Dysmenorrhea Menorrhagia with regular cycle Chronic pelvic pain in female Procedures CONSULT TO MINIMALLY INVASIVE GYNECOLOGIC SURGERY OFFICE/OUTPATIENT NEW [facility] MDM 60-74 MINUTES Nita Mendes, DAYCARE WORKER.PATIENT SITTER [address] [place] [id number] Referral ID Status Reason Start Date Expiration Date V isits Requested Visits Authorized [id number] Closed PCP Requested Referral Auto-Generated Referral 07/02/2021 07/02/2022 1 1 Specialty Diagnoses / Procedures Referred By Contac t Referred To Contact [facility] IMAGING Diagnoses Pelvic and perineal pain Procedures MRI FEMALE PELVIS WO/W IVCON MRI PELVIS W/O & W/CONTRAST MATERIAL Dodie Richards MD [address] [place] [address] Mr Imaging Referral ID Status Reason Start Date Expiration Date V isits Requested Visits Authorized [id number] Closed Auto-Generate d Referral 09/16/2021 11/15/2021 1 1 Specialty Diagnoses / Procedures Referred By Contac t Referred To Contact MR IMAGING Diagnoses Pelvic and perineal pain Dysmenorrhea Menorrhagia with regular cycle Chronic pelvic pain in female Procedures MRI FEMALE PELVIS WO/W IVCON MRI PELVIS W/O & W/CONTRAST MATERIAL Nita Mendes, LULY.PATIENT SITTER [address] [place] [address] Mr Imaging Referral ID Status Reason Start Date Expiration Date V isits Requested Visits Authorized [id number] Closed Auto-Generate d Referral 07/02/2021 09/22/2021 1 1 FOR RECORDS PERTAINING TO PATIENTS WHO ARE OR HAVE BEEN ENROLLED IN A CHEMICAL DEPENDENCY/SUBSTANCEABUSE PROGRAM, SOME INFORMATION MAY BE OMITTED. This clinical summary was aggregated from multiple sources. Caution should be exercised in using it in the provision of clinical care. This summary normalizes information from multiple sources, and as a consequence, information in this document may materially change the coding, format and clinical context of patient data. In addition, data may be omitted in some cases. CLINICAL DECISIONS SHOULD BE BASED ON THE PRIMARY CLINICAL RECORDS. [facility]. provides no warranty or guarantee of the accuracy or completeness of information in this document.
[2023-03-09 13:07] LABS: Hepatitis B Core Ab Total Negative (Negative); QNTFERON TB Mitogen Value > 10.00 IU/mL (.); QNTFERON TB Nil Value 0 IU/mL (.); QNTFERON TB1+ Ag Value 0 IU/mL (.); QNTFERON TB2+ Ag Value 0.01 IU/mL (.); QNTIFERON TB Positive Criteria Negative (Negative)
== END | disposition home or self-care (01) ==
LOC: MTLAB 11:38
PROVIDERS: PCP Family Medicine; Referring Provider Physician Assistant; Visit Provider Physician Assistant
DX: L40.0 Psoriasis vulgaris (principal); Z79.899 Other long term (current) drug therapy
CPT/HCPCS: 36415; 86480; 86704

== ENCOUNTER → 2023-09-15 | Outpatient (CLI) | payer MEDICAID, SELFPAY ==
--- NOTE | 2023-09-15 10:12 | RAD_ITS ---
EXAM: XR RIGHT HIP WITH PELVIS WHEN PERFORMED, 2 OR 3 VIEWS CLINICAL INDICATION: HIP PAIN TECHNIQUE: Two or three views of the right hip with pelvis when performed. COMPARISON: No relevant prior studies available. FINDINGS: BONES/JOINTS: Unremarkable. No displaced fracture. No destructive or sclerotic lesions. Note that overlapping bowel shadows may however obscure fine detail. Sacroiliac joint is unremarkable. No widening of the pubic symphysis. The articular structures are unremarkable. L4-L5 degenerative disc space height narrowing with endplate sclerosis. SOFT TISSUES: Unremarkable. No soft tissue swelling or gas. TUBES, LINES AND DEVICES: IUD device in place. OTHER FINDINGS: Left-sided calcified uterine fibroid. RAD/HIP, UNI W/ Pelvis 2-3 Views IMPRESSION: 1. No acute findings in the pelvis or right hip. 2. No significant osteoarthropathy of both hips, particularly the right hip. 3. Left-sided calcified uterine fibroid. 4. L4-L5 degenerative disc space height narrowing with endplate sclerosis. Electronically Signed: Jesus Lopez MD at 14:26 EDT ,
--- NOTE | 2023-09-15 10:12 | RAD_ITS ---
EXAM: XR LUMBOSACRAL SPINE, 2 OR 3 VIEWS CLINICAL INDICATION: HIP PAIN TECHNIQUE: Frontal and lateral views of the lumbar spine and sacrum. COMPARISON: No relevant prior studies available. FINDINGS: VERTEBRAE: Mild multilevel spondylosis especially at L4 and L5. Preserved vertebral body height. No fracture. No spondylolisthesis. Preservation of the normal lumbar lordosis. No significant facet arthropathy. DISC SPACES: No acute findings. Moderate loss of disc height at L4-L5, otherwise disc spaces are maintained. GASTROINTESTINAL TRACT: Unremarkable as visualized. Included bowel gas pattern is non-obstructive. RAD/Lumbar Spine 2 or 3 Views IMPRESSION: No acute abnormality. Moderate degenerative changes at L4-L5. Electronically Signed: Quinn Patel MD at 19:44 EDT ,
== END | disposition home or self-care (01) ==
LOC: MTLAB 10:05 → MTRAD 10:19
PROVIDERS: PCP Family Medicine; Referring Provider Family Medicine; Visit Provider Family Medicine
DX: M25.551 Pain in right hip (principal)
CPT/HCPCS: 72100; 73502

== ENCOUNTER → 2023-12-02 | Outpatient (CLI) | payer MEDICAID, SELFPAY ==
--- NOTE | 2023-12-02 10:37 | BI_ITS ---
MAMMOGRAPHY - BILATERAL SCREENING REASON FOR EXAM: Female, 43 years old. Routine annual screening examination. PERTINENT HISTORY: Non-contributory. TECHNIQUE: Digital bilateral breast jose (3D mammographic acquisition) in the CC and MLO projections. 2-D mediolateral oblique (MLO) and craniocaudad (CC) views of both breasts were obtained. CAD: Full Field Digital Mammography with Computer Added Detection was performed. COMPARISON: Comparison is made with prior study November 25, 2022 and November 05, 2021. FINDINGS: Breast Composition: There are scattered areas of fibroglandular density. There are no dominant masses or suspicious calcifications. No other significant abnormalities are identified. There has been no significant change since the prior study. BI/SCREENING MAMM (CAD), BILAT IMPRESSION: Stable bilateral screening mammogram. Yearly follow-up mammogram recommended. (A) ASSESSMENT CATEGORY: BIRADS Category 1: Negative. A letter regarding these results will be sent to the patient by the facility within 30 days. Approximately 10% of breast cancers are not detected by mammography. A normal mammogram should not delay biopsy of a clinically suspicious abnormality. [id number] Electronically Signed: Lion Perdomo MD at 12:04 EDT ,
== END | disposition home or self-care (01) ==
LOC: OPBI 10:31
PROVIDERS: PCP Family Medicine; Referring Provider Nurse Practitioner Family; Visit Provider Nurse Practitioner Family
DX: Z12.31 Encounter for screening mammogram for malignant neoplasm of breast (principal)
CPT/HCPCS: 77067

== ENCOUNTER → 2024-03-24 | Outpatient (CLI) | payer MEDICAID, SELFPAY ==
[2024-03-26 17:07] LABS: QNTFERON TB Mitogen Value 8.27 IU/mL (.); QNTFERON TB Nil Value 0 IU/mL (.); QNTFERON TB1+ Ag Value 0.02 IU/mL (.); QNTFERON TB2+ Ag Value 0.03 IU/mL (.); QNTIFERON TB Positive Criteria Negative (Negative)
== END | disposition home or self-care (01) ==
LOC: MTLAB 11:28
PROVIDERS: PCP Family Medicine; Referring Provider Physician Assistant Medical; Visit Provider Physician Assistant Medical
DX: L40.0 Psoriasis vulgaris (principal); L40.59 Other psoriatic arthropathy; Z79.899 Other long term (current) drug therapy
CPT/HCPCS: 36415; 86480

== ENCOUNTER → 2024-09-12 | Outpatient (CLI) | payer MEDICAID, SELFPAY ==
[2024-09-12 13:32] LABS: Creatinine, Urine (random) 97.10 mg/dL (28.00-217.00); Microalbumin,Random Urine < 12.0 mg/L (<20 mg/L)
[2024-09-12 13:42] LABS: AST(SGOT) 18 U/L (<=31); Alanine Aminotransfer ALT/SGPT 17 U/L (<=34); Albumin, Serum 4.4 g/dL (3.5-5.0); Alkaline Phosphatase 98 U/L (35-104); Anion Gap 13 (5-15); BUN 10 mg/dL (4-19); BUN/Creat Ratio 12.5 RATIO (10-20); Calcium,Total 9.1 mg/dL (7.6-11.0); Carbon Dioxide 21.5 mmol/L (21.0-32.0); Chloride 105 mmol/L (98-108); Globulin 2.9 g/dL (2.2-4.2); Glucose 94 mg/dL (70-99); Potassium 3.9 mmol/L (3.3-5.1)
[2024-09-12 13:58] LABS: Cholesterol 112 mg/dL (<=200); Low Density Lipoprotein Calc. 59 mg/dL; Triglycerides 52 mg/dL; Very Low Density Lipoprotein 10 mg/dL (5-40); cholesterol:hdl ratio screen 2.65
== END | disposition home or self-care (01) ==
LOC: MFPLAB 10:58
PROVIDERS: PCP Family Medicine; Visit Provider Family Medicine
DX: I10 Essential (primary) hypertension (principal)
CPT/HCPCS: 36415; 80053; 80061; 82043; 82570; 84443

== ENCOUNTER → 2024-11-02 | Outpatient (CLI) | payer MEDICAID, SELFPAY ==
[2024-11-02 10:41] LABS: Hematocrit 40.8 % (37-47); Hemoglobin 14.0 g/dL (12.0-15.0); Immature Granulocytes Count 0.030 X10^3/uL (0.0-0.0); Mean Corp Hgb Conc 34.3 g/dL (32-36); Mean Corpuscular Volume 90.1 fL (81-99); Mean Platelet Vol. 10.1 fl (6.2-12.0); NRBC Flagged by Analyzer 0 % (0-5); Platelet Count 340 K/mm3 (150-450); RBC Distribution Width CV 12.9 % (11.6-14.6); RBC Distribution Width SD 42.5 fl (35.1-43.9); Red Blood Count 4.53 M/mm3 (4.2-5.4); White Blood Count 7.5 K/mm3 (4.4-11.0)
[2024-11-02 10:43] LABS: Internal QC Validated? YES +Cl - CLEAR BKGD; Record Kit Lot#, Mono 16251077
[2024-11-02 11:32] LABS: AST(SGOT) 18 U/L (<=31); Alanine Aminotransfer ALT/SGPT 22 U/L (<=34); Albumin, Serum 4.1 g/dL (3.5-5.0); Alkaline Phosphatase 100 U/L (35-104); Anion Gap 13 (5-15); BUN 15 mg/dL (4-19); BUN/Creat Ratio 20.8 RATIO (10-20); Calcium,Total 8.9 mg/dL (7.6-11.0); Carbon Dioxide 22.1 mmol/L (21.0-32.0); Chloride 101 mmol/L (98-108); Globulin 3.0 g/dL (2.2-4.2); Glucose 137 mg/dL (70-99); Potassium 3.6 mmol/L (3.3-5.1); Vitamin D,25 Hydroxy 34.5 ng/mL (30-100)
== END | disposition home or self-care (01) ==
LOC: MFPLAB 09:01
PROVIDERS: PCP Family Medicine
DX: R06.02 Shortness of breath (principal); R53.83 Other fatigue
CPT/HCPCS: 36415; 80053; 82306; 85025; 86308

== ENCOUNTER 2024-12-09 08:37 | Day surgery (SDC) | payer MEDICAID, SELFPAY ==
--- NOTE | 2024-12-08 14:52 | PAT.ANESEVAL ---
Pre-Assessment Diagnosis/Proposed Procedure Planned Operative Procedure(s): COLONOSCOPY Anesthesia History Anesthesia History - enamel buffer: Anesthesia History - enamel buffer Hx Hospitalization No 12/07/24 14:34 Any Problems With Anesthesia No 12/07/24 14:34 Cholinesterase deficiency No 12/07/24 14:34 You/Your Family Experience No 12/07/24 14:34 fever (hyperthermia) with Relationship Recent Exposure to Contagious No 04/05/20 07:44 Disease Does patient have nerve No 12/07/24 14:34 stimulator Patient instructed to have device shut off --Does patient have Pacemaker or ICD? When Was Last Pacemaker Check QUESTION #4 FULL TEXT: You/Your Family Experience fever (hyperthermia) with Anesthesia Last Oral Intake Last Oral intake: Last Oral Intake NPO since Meds taken in AM with sips of water? Meds patient instructed to take am of surgery PONV PONV - enamel buffer: PONV - enamel buffer Female Yes 12/07/24 14:34 HX of Motion Sickness Yes 12/07/24 14:34 HX of N/V After Surgery Yes 12/07/24 14:34 Non-Smoker Yes 12/07/24 14:34 Duration of Surgery greater No 12/07/24 14:34 than 60 minutes Number of Risk Factors 4 12/07/24 14:34 PONV Score Severe Risk 12/07/24 14:34 Height & Weight Height & Weight: Anesthesia: Height & Weight Height 5 ft 7 in 11/02/24 09:53 Respiratory Assessment Respiratory Assessment - enamel buffer: Respiratory Tract Infection Hx - enamel buffer Hx Respiratory Tract Infection No 12/07/24 14:34 STOP Sleep Apnea STOP Sleep Apnea - enamel buffer: STOP Sleep Apnea - enamel buffer Hx Hypertension Yes 12/07/24 14:34 Hx Sleep Apnea Yes: WAS CPAP, BUT TRYING TO 12/07/24 14:34 FIGURE OUT NEXT STEPS, DR FIGUEROA BERNARDO PCP MANAGING CPAP No 12/07/24 14:34 BIPAP No 12/07/24 14:34 Do you snore loudly (louder than talking or can be heard Do you often feel tired/ fatigued/ sleepy during daytime? Has anyone observed you stop breathing during sleep? STOP Results Positive 12/07/24 14:34 QUESTION #5 FULL TEXT : Do you snore loudly (louder than talking or can be heard through closed doors)? 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 Specify any problems Hx of Preganancy in last 3 No 12/07/24 14:34 Months Nurse Filling Out Transfusion VLEHMAN 12/07/24 14:34 & Questions: Date: 12/07/24 12/07/24 14:34 Time: 14:37 12/07/24 14:34 Patient unable to answer at this time (ie. confused, unrespo /Reproduction History /Reproductive History - enamel buffer: /Reproductive Hx- enamel buffer Hx Now No 12/07/24 14:34 Gestational Age (in weeks): EDC: Hx Hx Para Hx Section SAB No 12/07/24 14:34 PFSH Medical History (Updated 12/07/24 @ 14:42 by Gwendolyn Valladares) History of heart attack Wears dentures Depression Anxiety Arthritis Anemia Gastric reflux Non-smoker CPAP (continuous positive airway pressure) dependence Sleep apnea History of echocardiogram Leg cramps Hypertension Cardiology follow-up encounter Colon cancer screening Premature ventricular beats Obesity Rapid palpitations GERD (gastroesophageal reflux disease) Obstructive sleep apnea Essential (primary) hypertension Migraine Home Medications ?Medication ?Instructions ?Recorded ?Last Taken ?Type promethazine 25 mg tablet 50 mg PO PRN PRN MIGRAINES 04/25/16 Unknown History pyridoxine (vitamin B6) 50 mg 50 mg PO DAILY 04/25/16 04/30/16 07:00 History tablet hydrocodone-acetaminophen 5-325mg 1 - 2 tab PO Q6H PRN PRN Pain #60 04/30/16 Unknown Rx 5mg-325mg tabs coenzyme Q10 100 mg capsule 100 mg PO DAILY 12/16/17 Unknown History fluticasone propionate 50 1 spray intranasal DAILY PRN 12/16/17 Unknown History mcg/actuation nasal allergy symptoms spray,suspension meclizine 25 mg tablet 25 mg PO DAILY PRN Vertigo 01/14/18 Unknown History esomeprazole magnesium 20 mg 40 mg PO DAILY #30 tabs 08/10/18 Unknown History tablet,delayed release hydrochlorothiazide 25 mg tablet 25 mg PO DAILY #90 tabs 01/21/19 Unknown Rx amitriptyline 25 mg tablet 12.5 - 50 mg PO QHS 11/02/24 Unknown History atorvastatin 80 mg tablet 80 mg PO QDAY 11/02/24 Unknown History bupropion HCl 150 mg 24 hr tablet, 300 mg PO QDAY 11/02/24 Unknown History extended release carvedilol 12.5 mg tablet 12.5 mg PO Q12H 11/02/24 Unknown History cholecalciferol (vitamin D3) 50 50 mcg PO QDAY 11/02/24 Unknown History mcg (2,000 unit) tablet clopidogrel 75 mg tablet 75 mg PO QDAY 11/02/24 12/03/24 History folic acid 1 mg tablet 1 mg PO QDAY 11/02/24 Unknown History ipratropium bromide 21 mcg (0.03 2 spray intranasal BID PRN allergy 11/02/24 Unknown History %) nasal spray symptoms ixekizumab 80 mg/mL subcutaneous 80 mg subcut Q4W 11/02/24 Unknown History syringe (Taltz Syringe) lamotrigine 200 mg tablet 200 mg PO BID 11/02/24 Unknown History mecobalamin (vitamin B12) 1,000 1,000 mcg sublingual QDAY 11/02/24 Unknown History mcg disintegrating tablet,sublingual ramipril 10 mg capsule 10 mg PO QDAY 11/02/24 Unknown History sertraline 50 mg tablet 50 mg PO QAM 11/02/24 Unknown History doxycycline monohydrate 100 mg 100 mg PO DAILY 12/07/24 Unknown History capsule hydroxyzine HCl 25 mg tablet 12.5 - 50 mg PO Q8 12/07/24 Unknown History methotrexate sodium 2.5 mg tablet 10 mg PO QWEEK 12/07/24 Unknown History spironolactone 100 mg tablet 100 mg PO DAILY 12/07/24 Unknown History Allergy/AdvReac Type Severity Reaction Status Date / Time Penicillins Allergy Hives Verified 12/07/24 14:27 Unknown Control Allergy Hives Uncoded 11/02/24 09:54 Family History Father Myocardial infarction ND in his 40's Heart disease Hypertension Sister Hypertension Surgical History (Updated 11/02/24 @ 09:53 by Dipika Purdy LPN) History of carpal tunnel surgery Hx of section left lateral epicondylar release Social History (Updated 11/02/24 @ 09:53 by Dipika Purdy LPN) Smoking Status: Never smoker alcohol intake: never substance use type: does not use Audit: Pertinent Findings Pertinent Findings EKG Perinent findings: July 08, 2020. Sinus rhythm. ST elevation with poor R wave progression. Consider acute anterior lateral infarct. Echo (EF%) pertinent findings: 07/08/2020. EF of 45 to 50%. Akinesis of the mid anteroseptal, apical septal and apical myocardium. RVSP is 19 mmHg. No aortic stenosis. Heart catheterization pertinent findings: July 07, 2020. 1. LAD has 100% mid vessel occlusion. Stent placed. Residual 0% stenosis. 2. EF of 55 to 60%. Consult pertinent findings: September 28, 2024. Dr. Hernández?cardiology. 1. Coronary disease-status post anterior wall ND on July 07, 2020. Status post PCI to the LAD. Subsequent echo was EF of 45%. Later echo in October showed EF of 55 to 60% with no valvular disease. 2. Hypertension?normal. 3. Increased BMI-encouraged to lose weight. 4. Obstructive sleep apnea on CPAP?patient was not able to tolerate CPAP. Recommendation Anesthesia Recommendation Anesthesia recommendation: OPTIMIZED for anesthesia
[2024-12-09] VITALS (8 sets, daily range): BP systolic 116–148; BP diastolic 76–101; PULSE 71–88; RESP 16; TEMP 36.3–36.6; O2SAT 97–100; BMI 46.3
[2024-12-09 09:05] LABS: Internal QC Validated? YES +Cl - CLEAR BKGD; Pregnancy, Urine Negative Negative; Record Kit Lot#,Urine Preg 980607
[2024-12-09] MEDS: Lactated Ringers 1,000 ML 15 ML IV (09:18)
--- NOTE | 2024-12-09 09:19 | PCM.PRE.AN2 ---
ASA Classification* ASA Classification ASA Classification: 3 Assessment & Plan Anesthesia* Anesthesia Assessment Anesthesia Assessment: Discussed sedation and/or anesthesia options, risks, benefits, and alternatives with patient/parents/legal guardian/POA. Questions invited. The patient/parents/legal guardian/POA seems to understand and agrees to proceed with anesthesia plan. Reviewed the physical assessment, medical history, allergy history and patient home medications list prior to surgery/procedure/anesthetic and documented any changes. Performed airway and anesthesia risk assessments. Anesthesia Type Anesthesia Type: MAC Anesthesia Focused Assessment* Temperature: 97.3 F Pulse Rate: 88 Blood Pressure: 148/84 Respiratory Rate: 16 Pulse Ox: 100 Airway Assessment Mouth opens: >3 cm Mallampati Score: II Labs Anesthesia Preop lab: CBC WBC, (4.4-11.0) 7.5 K/mm3 11/02/24, 09:02 RBC, (4.2-5.4) 4.53 M/mm3 11/02/24, 09:02 Hgb, (12.0-15.0) 14.0 g/dL 11/02/24, 09:02 Hct, (37-47) 40.8 % 11/02/24, 09:02 Plt Count, (150-450) 340 K/mm3 11/02/24, 09:02 CHEMISTRY Potassium, (3.3-5.1) 3.6 mmol/L 11/02/24, 09:02 Sodium, (133-145) 136 mmol/L 11/02/24, 09:02 Magnesium, (1.6-2.6) 2.0 mg/dL 04/18/19, 15:37 BUN, (4-19) 15 mg/dL 11/02/24, 09:02 Creatinine, (0.70-1.20) 0.74 mg/dL 11/02/24, 09:02 Glucose, (70-99) 137 mg/dL H 11/02/24, 09:02 TSH, (0.300-4.200) 2.330 uIU/mL 09/12/24, 10:59 COAG Urine Test Negative Negative Today, 08:47 Pre-Assessment Diagnosis/Proposed Procedure Planned Operative Procedure(s): COLONOSCOPY Anesthesia History 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 When Was Last Pacemaker Check QUESTION #4 FULL TEXT: You/Your Family Experience fever (hyperthermia) with Anesthesia Last Oral Intake Last Oral intake: Last Oral Intake NPO since 22:00 12/09/24 08:55 Meds taken in AM with sips of No 12/09/24 08:55 water? Meds patient instructed to take am of surgery PONV PONV - freelance photographer: PONV - freelance photographer Female Yes 12/07/24 14:34 HX of Motion Sickness Yes 12/07/24 14:34 HX of N/V After Surgery Yes 12/07/24 14:34 Non-Smoker Yes 12/07/24 14:34 Duration of Surgery greater No 12/07/24 14:34 than 60 minutes Number of Risk Factors 4 12/07/24 14:34 PONV Score Severe Risk 12/07/24 14:34 Height & Weight Height & Weight: Anesthesia: Height & Weight Height 5 ft 7 in 12/09/24 08:55 Weight: 134 kg 12/09/24 08:55 Body Mass Index (BMI) 46.3 12/09/24 08:55 Respiratory Assessment Respiratory Assessment - freelance photographer: Respiratory Tract Infection Hx - freelance photographer Hx Respiratory Tract Infection No 12/07/24 14:34 STOP Sleep Apnea STOP Sleep Apnea - freelance photographer: STOP Sleep Apnea - freelance photographer Hx Hypertension Yes 12/07/24 14:34 Hx Sleep Apnea Yes: WAS CPAP, BUT TRYING TO 12/07/24 14:34 FIGURE OUT NEXT STEPS, DR FIGUEROA BERNARDO PCP MANAGING CPAP No 12/07/24 14:34 BIPAP No 12/07/24 14:34 Do you snore loudly (louder than talking or can be heard Do you often feel tired/ fatigued/ sleepy during daytime? Has anyone observed you stop breathing during sleep? STOP Results Positive 12/07/24 14:34 QUESTION #5 FULL TEXT : Do you snore loudly (louder than talking or can be heard through closed doors)? 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 Specify any problems Hx of Preganancy in last 3 No 12/07/24 14:34 Months Nurse Filling Out Transfusion VLEHMAN 12/07/24 14:34 & Questions: Date: 12/07/24 12/07/24 14:34 Time: 14:37 12/07/24 14:34 Patient unable to answer at this time (ie. confused, unrespo /Reproduction History /Reproductive History - freelance photographer: /Reproductive Hx- freelance photographer Hx Now No 12/07/24 14:34 Gestational Age (in weeks): EDC: Hx Hx Para Hx Section SAB No 12/07/24 14:34 Active Medications Active Medications: Current Medications Generic Name Dose Route Start Last Admin Trade Name Freq PRN Reason Stop Dose Admin Lactated Ringer's 1,000 mls @ 15 mls/hr 12/09/24 08:45 12/09/24 09:18 IV 15 mls/hr .Q48H KARELY Administration PFSH Medical History History of heart attack Wears dentures Depression Anxiety Arthritis Anemia Gastric reflux Non-smoker CPAP (continuous positive airway pressure) dependence Sleep apnea History of echocardiogram Leg cramps Hypertension Cardiology follow-up encounter Colon cancer screening Premature ventricular beats Obesity Rapid palpitations GERD (gastroesophageal reflux disease) Obstructive sleep apnea Essential (primary) hypertension Migraine Home Medications ?Medication ?Instructions ?Recorded ?Last Taken ?Type promethazine 25 mg tablet 50 mg PO PRN PRN MIGRAINES 04/25/16 Unknown History pyridoxine (vitamin B6) 50 mg 50 mg PO DAILY 04/25/16 04/30/16 07:00 History tablet hydrocodone-acetaminophen 5-325mg 1 - 2 tab PO Q6H PRN PRN Pain #60 04/30/16 Unknown Rx 5mg-325mg tabs coenzyme Q10 100 mg capsule 100 mg PO DAILY 12/16/17 Unknown History fluticasone propionate 50 1 spray intranasal DAILY PRN 12/16/17 Unknown History mcg/actuation nasal allergy symptoms spray,suspension meclizine 25 mg tablet 25 mg PO DAILY PRN Vertigo 01/14/18 Unknown History esomeprazole magnesium 20 mg 40 mg PO DAILY #30 tabs 08/10/18 Unknown History tablet,delayed release hydrochlorothiazide 25 mg tablet 25 mg PO DAILY #90 tabs 01/21/19 Unknown Rx amitriptyline 25 mg tablet 12.5 - 50 mg PO QHS 11/02/24 Unknown History atorvastatin 80 mg tablet 80 mg PO QDAY 11/02/24 Unknown History bupropion HCl 150 mg 24 hr tablet, 300 mg PO QDAY 11/02/24 Unknown History extended release carvedilol 12.5 mg tablet 12.5 mg PO Q12H 11/02/24 12/08/24 History cholecalciferol (vitamin D3) 50 50 mcg PO QDAY 11/02/24 Unknown History mcg (2,000 unit) tablet clopidogrel 75 mg tablet 75 mg PO QDAY 11/02/24 12/02/24 History folic acid 1 mg tablet 1 mg PO QDAY 11/02/24 Unknown History ipratropium bromide 21 mcg (0.03 2 spray intranasal BID PRN allergy 11/02/24 Unknown History %) nasal spray symptoms ixekizumab 80 mg/mL subcutaneous 80 mg subcut Q4W 11/02/24 Unknown History syringe (Taltz Syringe) lamotrigine 200 mg tablet 200 mg PO BID 11/02/24 Unknown History mecobalamin (vitamin B12) 1,000 1,000 mcg sublingual QDAY 11/02/24 Unknown History mcg disintegrating tablet,sublingual ramipril 10 mg capsule 10 mg PO QDAY 11/02/24 Unknown History sertraline 50 mg tablet 50 mg PO QAM 11/02/24 Unknown History doxycycline monohydrate 100 mg 100 mg PO DAILY 12/07/24 Unknown History capsule hydroxyzine HCl 25 mg tablet 12.5 - 50 mg PO Q8 12/07/24 Unknown History methotrexate sodium 2.5 mg tablet 10 mg PO QWEEK 12/07/24 12/02/24 History spironolactone 100 mg tablet 100 mg PO DAILY 12/07/24 Unknown History Allergy/AdvReac Type Severity Reaction Status Date / Time Penicillins Allergy Hives Verified 12/09/24 08:53 Family History Father Myocardial infarction [place] in his 40's Heart disease Hypertension Sister Hypertension Surgical History History of carpal tunnel surgery Hx of section left lateral epicondylar release Social History Smoking Status: Never smoker alcohol intake: never substance use type: does not use Review of Systems (Anesthesia) ROS Narrative System reviewed and no additional complaints, except as documented.
--- NOTE | 2024-12-09 09:59 | PCM.HP.STD ---
HPI - General General Date of Admission: 12/09/24 Date of Service: 12/09/24 Chief Complaint: Screening colonoscopy HPI Narrative The patient is a 44-year-old female who is being seen today for a screening colonoscopy. She has never had a previous colonoscopy. She denies any family history of colon polyps or colon cancers. She denies any GI issues or problems. She does have a history of a heart attack about 5 years ago. She did have a stent placed at that time. She has been on Plavix which was held for procedure [facility] Medical History History of heart attack Wears dentures Depression Anxiety Arthritis Anemia Gastric reflux Non-smoker CPAP (continuous positive airway pressure) dependence Sleep apnea History of echocardiogram Leg cramps Hypertension Cardiology follow-up encounter Colon cancer screening Premature ventricular beats Obesity Rapid palpitations GERD (gastroesophageal reflux disease) Obstructive sleep apnea Essential (primary) hypertension Migraine Home Medications ?Medication ?Instructions ?Recorded ?Last Taken ?Type promethazine 25 mg tablet 50 mg PO PRN PRN MIGRAINES 04/25/16 Unknown History pyridoxine (vitamin B6) 50 mg 50 mg PO DAILY 04/25/16 04/30/16 07:00 History tablet hydrocodone-acetaminophen 5-325mg 1 - 2 tab PO Q6H PRN PRN Pain #60 04/30/16 Unknown Rx 5mg-325mg tabs coenzyme Q10 100 mg capsule 100 mg PO DAILY 12/16/17 Unknown History fluticasone propionate 50 1 spray intranasal DAILY PRN 12/16/17 Unknown History mcg/actuation nasal allergy symptoms spray,suspension meclizine 25 mg tablet 25 mg PO DAILY PRN Vertigo 01/14/18 Unknown History esomeprazole magnesium 20 mg 40 mg PO DAILY #30 tabs 08/10/18 Unknown History tablet,delayed release hydrochlorothiazide 25 mg tablet 25 mg PO DAILY #90 tabs 01/21/19 Unknown Rx amitriptyline 25 mg tablet 12.5 - 50 mg PO QHS 11/02/24 Unknown History atorvastatin 80 mg tablet 80 mg PO QDAY 11/02/24 Unknown History bupropion HCl 150 mg 24 hr tablet, 300 mg PO QDAY 11/02/24 Unknown History extended release carvedilol 12.5 mg tablet 12.5 mg PO Q12H 11/02/24 12/08/24 History cholecalciferol (vitamin D3) 50 50 mcg PO QDAY 11/02/24 Unknown History mcg (2,000 unit) tablet clopidogrel 75 mg tablet 75 mg PO QDAY 11/02/24 12/02/24 History folic acid 1 mg tablet 1 mg PO QDAY 11/02/24 Unknown History ipratropium bromide 21 mcg (0.03 2 spray intranasal BID PRN allergy 11/02/24 Unknown History %) nasal spray symptoms ixekizumab 80 mg/mL subcutaneous 80 mg subcut Q4W 11/02/24 Unknown History syringe (Taltz Syringe) lamotrigine 200 mg tablet 200 mg PO BID 11/02/24 Unknown History mecobalamin (vitamin B12) 1,000 1,000 mcg sublingual QDAY 11/02/24 Unknown History mcg disintegrating tablet,sublingual ramipril 10 mg capsule 10 mg PO QDAY 11/02/24 Unknown History sertraline 50 mg tablet 50 mg PO QAM 11/02/24 Unknown History doxycycline monohydrate 100 mg 100 mg PO DAILY 12/07/24 Unknown History capsule hydroxyzine HCl 25 mg tablet 12.5 - 50 mg PO Q8 12/07/24 Unknown History methotrexate sodium 2.5 mg tablet 10 mg PO QWEEK 12/07/24 12/02/24 History spironolactone 100 mg tablet 100 mg PO DAILY 12/07/24 Unknown History Allergy/AdvReac Type Severity Reaction Status Date / Time Penicillins Allergy Hives Verified 12/09/24 08:53 Family History Father Myocardial infarction [place] in his 40's Heart disease Hypertension Sister Hypertension Surgical History History of carpal tunnel surgery Hx of section left lateral epicondylar release Social History Smoking Status: Never smoker alcohol intake: never substance use type: does not use Vital Signs Vital Signs Vital Signs: 12/09/24 08:55 12/09/24 08:55 12/09/24 09:20 Temperature 97.3 F L 97.3 F L Temperature Source Temporal Pulse Rate 88 88 Respiratory Rate 16 16 Respiratory Pattern Normal Blood Pressure 148/84 H 148/84 H Blood Pressure Mean 105 Blood Pressure Source Monitor Blood Pressure Position Sitting Blood Pressure Location Right Forearm Pulse Ox 100 100 Oxygen Delivery Method Room Air Weight Weight: 295 lb 6.711 oz Body Mass Index (BMI) 46.3 Physical Exam Const alert, oriented x3 and no apparent distress Results Lab / Micro Data Labs: Laboratory Results - last 24 hr 12/09/24 08:47: Urine Test Negative Assessment & Plan Assessment/Plan (1) Colon cancer screening: PLAN: Plan Screening colonoscopy today
--- NOTE | 2024-12-09 10:45 | POSTOP.ANE_ITS ---
Anesthesia: Postop Eval I
--- NOTE | 2024-12-09 10:45 | PCM.POST.ANE ---
Anesthesia: Postop Eval I Current Vital Signs Temperature: 97.7 F Pulse Rate: 78 Blood Pressure: 122/76 Respiratory Rate: 16 Pulse Ox: 100 Oxygen Delivery Method: Room Air Assessment Airway patent: Yes Spontaneous unlabored respirations: Yes Mental status: Awake and Calm nausea: No Vomiting: No Anesthesia Complication: No Fluid Hydration Crystalloid volume administer (ml): 300 Total IV fluid infused: 300 Progress Note Anesthesia document: Postop Eval 1 completed: Yes
--- NOTE | 2024-12-09 11:00 | OP.COLON_ITS ---
Patient Name: Blanca López
--- NOTE | 2024-12-09 11:06 | POSTOPAN2_ITS ---
Anesthesia Postop Eval I Sum
--- NOTE | 2024-12-09 11:06 | PCM.POSTANE2 ---
Anesthesia Postop Eval I Sum Postop Eval Completion status Anesthesia document: Postop Eval 1 completed: Yes Anesthesia Postop Eval I Summary Anesthesia Postop Eval I Summary: Anesthesia Postop Eval I: Assessment Summary Airway patent Yes 12/09/24 10:46 [employer][email or web address] Spontaneous unlabored Yes 12/09/24 10:46 [email or web address] respirations Mental status Awake,Calm 12/09/24 10:46 [employer].[email or web address] nausea No 12/09/24 10:46 [employer].[email or web address] Vomiting No 12/09/24 10:46 [employer].[email or web address] Anesthesia Postop Eval I: Fluid Summary Crystalloid volume administer 300 12/09/24 10:46 [employer].JDEF (ml) Colloids volume administered ( ml) Blood Product volume administered (ml) Total IV fluid infused 300 12/09/24 10:46 [employer].[email or web address] Anesthesia Postop Eval I: Summary Notes Anesthesia Complication No 12/09/24 10:46 [employer].[email or web address] Anesthesia Complication Comment: Post-operative progress note Anesthesia: Postop Eval II Evaluation Mental status: Awake Pain Level: 0 nausea: No Vomiting: No
== END 2024-12-09 11:30 | disposition home or self-care (01) ==
LOC: EN 08:38 → AC 08:39
PROVIDERS: Anesthesiology; PCP Family Medicine; Referring Provider Family Medicine; Visit Provider Surgery
PROC: 0DJD8ZZ Inspection of Lower Intestinal Tract, Via Natural or Artificial Opening Endoscopic (ICD-10-PCS; CPT 45378; principal; 2024-12-09 09:40)
DX: Z12.11 Encounter for screening for malignant neoplasm of colon (principal); I10 Essential (primary) hypertension; I25.2 Old myocardial infarction; Z79.02 Long term (current) use of antithrombotics/antiplatelets; G47.30 Sleep apnea, unspecified; Z99.89 Dependence on other enabling machines and devices; K21.9 Gastro-esophageal reflux disease without esophagitis; Z79.899 Other long term (current) drug therapy; F32.A Depression, unspecified
CPT/HCPCS: 45378; 81025; J2405

== ENCOUNTER → 2025-01-02 | Outpatient (CLI) | payer MEDICAID, SELFPAY ==
--- NOTE | 2025-01-02 15:56 | RAD_ITS ---
PROCEDURE: KNEE 4 OR MORE VIEWS 01/02/2025 REASON FOR EXAM: PAIN TECHNIQUE: Procedure Code: RADKN Modality: DX Procedure: KNEE 4 OR MORE VIEWS Laterality: Right COMPARISON: None FINDINGS: There is no evidence of fracture or dislocation. Possible surgical defect at the distal metadiaphysis of the right femur on its lateral aspect. There is no significant arthritis of the patellofemoral joint. There is no significant arthritis of the medial joint space compartment of the knee. There is no significant arthritis of the lateral joint space compartment of the knee. There is no knee joint effusion. The periarticular soft tissues are normal. RAD/Knee 4 or More Views IMPRESSION: 1. Normal right knee. 2. Other findings as noted. Reading Location: [id number]
== END | disposition home or self-care (01) ==
LOC: MTRAD 15:53
PROVIDERS: PCP Family Medicine
DX: M79.604 Pain in right leg (principal)
CPT/HCPCS: 73564